=== PATIENT | female | born 1960 | race Caucasian/White ===

== ENCOUNTER 2016-09-30 07:48 | Inpatient (IN) | payer OTHER ==
[~2016-09-30] VITALS: Ht 167.6 cm; Wt 73.6 kg
[~2016-09-30 07:48] MED LIST: ASPI81TA21 PO; ATOR10TA PO; CHILCHW CHEW; CITA20 PO; CRAN500C2 PO; GLUCTAB PO; HYDR-3535 PO; HYDR25 PO; KETO2%T TOP; LEFL20TA7 PO; LOMO2.5T PO; NEOR100 PO; PRED5 PO; PREM1.25 PO; PRIN10TA PO; PROM25TA5 PO; PROP20TA24 PO; SPIR50TA PO; TAB-TAB PO; TRIA.1%T TOP; XANA0.5T PO
[2016-09-30 07:50] VITALS: BP 189/98; PULSE 136; RESP 20; TEMP 97.9; O2SAT 97
[2016-09-30] MEDS ORDERED: SODIUM CHLOR 0.9% 1000 ML INJ 1,000 ML IV SCH (08:11)
[2016-09-30] MEDS ORDERED: PANTOPRAZOLE SODIUM 40 MG VIAL IVP ONE (08:15)
[2016-09-30] MEDS ORDERED: SODIUM CHLORIDE 0.9% FLUSH 5 ML FLUSH IVF PRN ×2 (08:15→15:00)
[2016-09-30] MEDS ORDERED: MORPHINE SULFATE 4 MG/ML INJ IV PUSH ONE ×2 (08:15→12:30)
[2016-09-30] MEDS ORDERED: ASPI81CH37 PO (08:19)
[2016-09-30] MEDS ORDERED: PHEN-430 PO (08:19)
[2016-09-30] MEDS ORDERED: [UNRECOGNIZED DRUG - CODE] PO (08:19)
[2016-09-30] MEDS ORDERED: CYCL100C6 PO (08:19)
[2016-09-30] MEDS ORDERED: BUTA1CAP5 PO (08:19)
[2016-09-30] MEDS ORDERED: PRIL20CA9 PO (08:19)
[2016-09-30] MEDS ORDERED: LEFL1TAB3 PO (08:19)
[2016-09-30] MEDS ORDERED: ZOFR4TAB PO (08:19)
[2016-09-30] MEDS ORDERED: PROP20TA3 PO (08:19)
[2016-09-30] MEDS ORDERED: ROSU1TAB4 PO (08:19)
[2016-09-30] MEDS ORDERED: DIPH2.5T14 PO (08:19)
[2016-09-30] MEDS ORDERED: PRED5TAB PO (08:19)
[2016-09-30] MEDS ORDERED: LISI10TA3 PO (08:19)
[2016-09-30] MEDS ORDERED: SPIR50TA PO (08:19)
[2016-09-30] MEDS ORDERED: LOPE2CAP PO (08:19)
[2016-09-30] MEDS ORDERED: ESTR1.25 PO (08:19)
[2016-09-30] MEDS ORDERED: METF500T PO (08:19)
--- NOTE | 2016-09-30 08:19 | PD ---
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 Pt has been having NBNB vomiting and nonbloody diarrhea for 5-6 days. +Cough. +Chest pain with cough. Denies any fever, sob, urinary complaints, focal weakness or numbness. Pt took diphenoxylate/atropine for her diarrhea. Pt follows with oncologist Dr. Will. [facility] Past Medical History Arthritis: Yes (RHEUMATOID) Blood Disorders: No Anxiety: Yes Depression: Yes Heart Rhythm Problems: Yes Cancer: Yes (OVARIAN) Cardiovascular Problems: Yes Chemotherapy: Yes (leukemia) Diabetes: Yes Patient Takes Glucophage: Yes Diminished Hearing: No Endocrine: Yes Fibromyalgia: Yes Gastrointestinal Disorders: Yes GERD: Yes Glaucoma: No Genitourinary: Yes Headaches: Yes Hepatitis: No Hiatal Hernia: Yes Hypertension: Yes Immune Disorder: Yes Implanted Vascular Access Dvce: No Medical other: Yes (DDD, OSTEOARTHRITIS NECK, SPINAL CURVATURE) Musculoskeletal: Yes Neurologic: Yes Psychiatric: Yes Reproductive: No Respiratory: No Immunizations Current: No Migraines: Yes Thyroid Disease: No Tetanus Vaccination: > 5 Years Influenza Vaccination: No PNEUMOCCOCAL Vaccine (Year): 2 Menopausal: No : 1 Para: 1 Miscarriage: 0 : 0 Past Surgical History Abdominal Surgery: Yes (OMENTECTOMY STAGING BIOPSY AUG 21, 2010) AICD: No Arteriovenous Shunt: No Cardiac Surgery: No Section: Yes Ear Surgery: No Endocrine Surgery: No Eye Surgery: No Genitourinary Surgery: No Gynecologic Surgery: Yes (HYSTERECTOMY LEAH S&O PELVIC LYMPH NODE BIOPSY) Hysterectomy: Yes Insulin Pump: No Joint Replacement: No Neurologic Surgery: No Oral Surgery: Yes Pacemaker: No Thoracic Surgery: No Valve Replacement: Yes (PORT PLACED THEN REMOVED) Other Surgery: Yes Social History Alcohol Use: No Tobacco Use: No Substance Use: No Allergies-Medications (Allergen,Severity, Reaction): Coded Allergies: Ciprofloxacin (Verified Allergy, Severe, Swelling, 09/30/16) SWELLING AND AGGITATION Penicillin (Verified Allergy, Severe, RASH, 09/30/16) Cleocin (Verified Allergy, Intermediate, FLU SX, 09/30/16) Plaquenil (Verified Allergy, Intermediate, FLU SX, 09/30/16) Gabapentin (Verified Allergy, Mild, Rash, 09/30/16) Macrobid (Verified Adverse Reaction, Severe, N&V, 09/30/16) Reported Meds & Prescriptions Reported Meds & Active Scripts Active Reported Zofran (Ondansetron HCl) 4 Mg Tab 4 Mg PO Q8HR PRN Phenazopyridine (Phenazopyridine HCl) 200 Mg Tab 200 Mg PO Q8H PRN Rrpkpugthv-Urrnfojjgbtgb-Kxmixvno 50-300-40 Mg Cap 1 Cap PO TID PRN Do not exceed 6 capsules/day. Spironolactone 50 Mg Tab 50 Mg PO DAILY Propranolol (Propranolol HCl) 20 Mg Tab 20 Mg PO Q12HR Prednisone 5 Mg Tab 5 Mg PO DAILY Premarin (Estrogens Conjugated) 1.25 Mg Tab 1.25 Mg PO DAILY Escitalopram Liq (Escitalopram Oxalate) 5 Mg/5 Ml Soln 10 Mg PO DAILY Loperamide (Loperamide HCl) 2 Mg Cap 2 Mg PO DIRECTED PRN One capsule after each loose stool. Not to exceed 8 capsules per day. Rosuvastatin (Rosuvastatin Calcium) 5 Mg Tab 5 Mg PO DAILY Prilosec (Omeprazole) 20 Mg Cap 20 Mg PO DAILY Leflunomide 20 Mg Tab 20 Mg PO DAILY Aspirin Low Dose (Aspirin) 81 Mg Chew 81 Mg CHEW DAILY Diphenoxylate-Atropine 2.5-0.025 Mg Tab 2 Tab PO Q6H PRN Cyclosporine 100 Mg Cap 100 Mg PO BID Metformin (Metformin HCl) 500 Mg Tab 500 Mg PO BIDPC With meals Lisinopril 10 Mg Tab 10 Mg PO DAILY Review of Systems Except as stated in HPI: all other systems reviewed are Neg Physical Exam Narrative GENERAL: 55yo F in moderate distress. SKIN: Warm and dry. HEAD: Atraumatic. Normocephalic. CARDIOVASCULAR: Tachycardic. No murmur appreciated. RESPIRATORY: No accessory muscle use. Clear to auscultation. Breath sounds equal bilaterally. GASTROINTESTINAL: Abdomen soft, +TTP RUQ and RLQ. No rebound tenderness or guarding. MUSCULOSKELETAL: No obvious deformities. No clubbing. No cyanosis. No edema. NEUROLOGICAL: Awake and alert. No obvious cranial nerve deficits. Motor grossly within normal limits. Normal speech. PSYCHIATRIC: Appropriate mood and affect; insight and judgment normal. Data Data Last Documented VS Vital Signs Date Time Temp Pulse Resp B/P Pulse Ox O2 Delivery O2 Flow Rate FiO2 09/30/16 12:30 91 16 174/79 97 Room Air 09/30/16 07:50 97.9 Orders Electrocardiogram (09/30/16 ) Complete Blood Count With Diff (09/30/16 08:11) Comprehensive Metabolic Panel (09/30/16 08:11) Lipase (09/30/16 08:11) Lactic Acid (09/30/16 08:11) Prothrombin Time / Inr (Pt) (09/30/16 08:11) Act Partial Throm Time (Ptt) (09/30/16 08:11) Ct Abd/Pel W Iv Contrast(Rout) (09/30/16 08:11) Iv Access Insert/Monitor (09/30/16 08:11) Ecg Monitoring (09/30/16 08:11) Oximetry (09/30/16 08:11) Morphine Inj (Morphine Inj) (09/30/16 08:15) Pantoprazole Inj (Protonix Inj) (09/30/16 08:15) Sodium Chlor 0.9% 1000 Ml Inj (Ns 1000 M (09/30/16 08:11) Sodium Chloride 0.9% Flush (Ns Flush) (09/30/16 08:15) Chest, Single Ap (09/30/16 08:11) Troponin I (09/30/16 08:11) Blood Culture (09/30/16 08:11) Ondansetron Inj (Zofran Inj) (09/30/16 08:30) Urinalysis - C+S If Indicated (09/30/16 08:58) Iohexol 350 Inj (Omnipaque 350 Inj) (09/30/16 09:50) Sodium Chlor 0.9% 1000 Ml Inj (Ns 1000 M (09/30/16 10:45) NPO (09/30/16 10:45) [facility] Information ([facility] (09/30/16 11:15) Ertapenem Inj (Invanz Inj) (09/30/16 11:14) Enalaprilat Inj (Vasotec Inj) (09/30/16 12:17) Enalaprilat Inj (Vasotec Inj) (09/30/16 12:30) Morphine Inj (Morphine Inj) (09/30/16 12:30) Electrocardiogram (09/30/16 ) Admit To Inpatient (09/30/16 ) Code Status (09/30/16 12:37) Vital Signs (Adult) Q4H (09/30/16 12:37) Activity Oob With Assistance (09/30/16 12:37) Diet Npo (09/30/16 Lunch) Sodium Chloride 0.9% Flush (Ns Flush) (09/30/16 12:45) Sodium Chloride 0.9% Flush (Ns Flush) (09/30/16 21:00) Acetaminophen (Tylenol) (09/30/16 12:45) Ondansetron Inj (Zofran Inj) (09/30/16 12:45) Bisacodyl Supp (Dulcolax Supp) (09/30/16 12:45) Magnesium Hydroxide Liq (Milk Of Magnesi (09/30/16 12:45) Pt Request For Service (09/30/16 12:37) Scd Bilateral/Knee High RAYA.BID (09/30/16 12:37) Naloxone Inj (Narcan Inj) (09/30/16 12:45) Inpatient Certification (09/30/16 ) Clonidine (Catapres) (09/30/16 12:45) Enalaprilat Inj (Vasotec Inj) (09/30/16 12:45) Acetamin-Hydrocod 325-5 Mg ([place] 5-325 (09/30/16 12:45) Hydromorphone Pf Inj (Dilaudid Pf Inj) (09/30/16 12:45) Admit Order (Ed Use Only) (09/30/16 12:43) Labs Laboratory Tests Test 09/30/16 09/30/16 08:30 09:00 White Blood Count 2.3 TH/MM3 Red Blood Count 4.51 MIL/MM3 Hemoglobin 12.4 GM/DL Hematocrit 38.7 % Mean Corpuscular Volume 85.7 FL Mean Corpuscular Hemoglobin 27.5 PG Mean Corpuscular Hemoglobin 32.1 % Concent Red Cell Distribution Width 17.2 % Platelet Count 221 TH/MM3 Mean Platelet Volume 8.0 FL Neutrophils (%) (Auto) 24.2 % Lymphocytes (%) (Auto) 55.0 % Monocytes (%) (Auto) 15.8 % Eosinophils (%) (Auto) 4.4 % Basophils (%) (Auto) 0.6 % Neutrophils # (Auto) 0.6 TH/MM3 Lymphocytes # (Auto) 1.3 TH/MM3 Monocytes # (Auto) 0.4 TH/MM3 Eosinophils # (Auto) 0.1 TH/MM3 Basophils # (Auto) 0.0 TH/MM3 CBC Comment AUTO DIFF Differential Total Cells 100 Counted Neutrophils % (Manual) 28 % Band Neutrophils % 3 % Lymphocytes % 54 % Monocytes % 11 % Eosinophils % 4 % Neutrophils # (Manual) 0.7 TH/MM3 Differential Comment FINAL DIFF MANUAL Platelet Estimate NORMAL Platelet Morphology Comment NORMAL Ovalocytes 1+ Keratocytes OCC Prothrombin Time 10.5 SEC Prothromb Time International 1.0 RATIO Ratio Activated Partial 24.8 SEC Thromboplast Time Sodium Level 137 MEQ/L Potassium Level 4.5 MEQ/L Chloride Level 101 MEQ/L Carbon Dioxide Level 26.4 MEQ/L Anion Gap 10 MEQ/L Blood Urea Nitrogen 14 MG/DL Creatinine 1.37 MG/DL Estimat Glomerular Filtration 40 ML/MIN Rate Random Glucose 142 MG/DL Lactic Acid Level 1.5 mmol/L Calcium Level 8.7 MG/DL Total Bilirubin 0.5 MG/DL Aspartate Amino Transf 16 U/L (AST/SGOT) Alanine Aminotransferase 14 U/L (ALT/SGPT) Alkaline Phosphatase 59 U/L Troponin I LESS THAN 0.02 NG/ML Total Protein 7.4 GM/DL Albumin 3.2 GM/DL Lipase 82 U/L Urine Color YELLOW Urine Turbidity HAZY Urine pH 5.5 Urine Specific [place] 1.020 Urine Protein TRACE mg/dL Urine Glucose (UA) NEG mg/dL Urine Ketones NEG mg/dL Urine Occult Blood NEG Urine Nitrite NEG Urine Bilirubin NEG Urine Urobilinogen LESS THAN 2.0 MG/DL Urine Leukocyte Esterase NEG Urine RBC 1 /hpf Urine WBC 3 /hpf Urine Squamous Epithelial 14 /hpf Cells Urine Bacteria FEW /hpf Urine Hyaline Casts 3 /lpf Urine Mucus FEW /lpf Microscopic Urinalysis Comment CULT NOT INDICATED MDM Medical Decision Making Medical Screen Exam Complete: Yes Emergency Medical Condition: Yes Interpretation(s) EKG: Sinus tachycardia at 119bpm. Normal axis. No ST segment elevation or depression. Differential Diagnosis Sepsis vs. appendicitis vs. colitis vs. gastroenteritis vs. dehydration Narrative Course 55yo F with right sided abdominal pain. Pt's initially heart rate when I evaluated her was about 120bpm and improved to 80s after NS IVF. Discussed with Dr. Will initially who has not yet seen the patient since pt's oncologist Dr. Felder recently retired. Labs reviewed, WBC 2.3. Lactic acid normal. UA negative. CXR negative. CTa/p showed acute appendicitis. Initially spoke with surgeon Dr. Burrell who recommended ertapenem and medicine admission. Discussed with Dr. Richardson and also Dr. Patterson since pt is [facility] pt. Pt accepted to Dr. Richardson and consulted by Dr. Walters. Pt given morphine 4mg IV with improved of pain. Diagnosis Primary Impression: Appendicitis Qualified Code: K35.80 - Acute appendicitis, unspecified acute appendicitis type Admitting Information Admitting Physician Requests: Admit Yoly Manrique DO Sep 30, 2016 08:19
[2016-09-30] MEDS ORDERED: ONDANSETRON HCL 4 MG/2 ML VIAL IV PUSH ONE ×2 (08:30→12:00)
--- NOTE | 2016-09-30 08:35 | RADRPT ---
EXAM DATE/TIME: 09/30/2016 08:13 [facility] COMPARISON: CHEST SINGLE AP, May 04, 2016, 12:36. INDICATIONS : Short of breath. MEDICAL HISTORY : None. SURGICAL HISTORY : None. ENCOUNTER: Initial ACUITY: 3 days PAIN SCORE: 10/10 LOCATION: lower quadrant of abdomen. FINDINGS: A single view of the chest demonstrates the lungs to be symmetrically aerated without evidence of mas s, infiltrate or effusion. The cardiomediastinal contours are unremarkable. Osseous structures are intact. CONCLUSION: No acute disease. No significant change has occurred. Kyle Roy MD on September 30, 2016 at 8:33 Board Certified Radiologist. This report was verified electronically.
[2016-09-30 08:47] LABS: AUTOMATED NEUTROPHIL # 0.6 TH/MM3 (1.8-7.7); BASOPHIL % 0.6 % (0.0-2.0); EOSINOPHIL # 0.1 TH/MM3 (0-0.4); EOSINOPHIL % 4.4 % (0.0-4.0); HEMATOCRIT 38.7 % (35.0-46.0); LYMPHOCYTE # 1.3 TH/MM3 (1.0-4.8); MEAN CELL VOLUME 85.7 FL (80.0-100.0); MEAN CORPUSCULAR HEMOGLOBIN 27.5 PG (27.0-34.0); MEAN CORPUSCULAR HGB CONC 32.1 % (32.0-36.0); MONO % 15.8 % (0.0-8.0); NEUT % 24.2 % (16.0-70.0); PLATELET COUNT 221 TH/MM3 (150-450); RED BLOOD COUNT 4.51 MIL/MM3 (4.00-5.30); RED CELL DISTRIBUTION WIDTH 17.2 % (11.6-17.2); WHITE BLOOD COUNT 2.3 TH/MM3 (4.0-11.0)
[2016-09-30 08:54] LABS: HEMO FLAGS AUTO DIFF
[2016-09-30 08:57] LABS: APTT (PATIENT) 24.8 SEC (24.3-30.1); PROTHROMBIN TIME - PATIENT 10.5 SEC (9.8-11.6)
[2016-09-30 09:01] VITALS: BP 143/75; PULSE 80; RESP 16; O2SAT 97
[2016-09-30 09:02] LABS: ANION GAP 10 MEQ/L (5-15); AST (GOT) 16 U/L (15-37); BICARBONATE 26.4 MEQ/L (21.0-32.0); BLOOD UREA NITROGEN 14 MG/DL (7-18); CHLORIDE 101 MEQ/L (98-107); GLOMERULAR FILTRATION RATE 40 ML/MIN (>89); POTASSIUM 4.5 MEQ/L (3.5-5.1); SODIUM (NA) 137 MEQ/L (136-145)
[2016-09-30 09:07] LABS: ALKALINE PHOSPHATASE 59 U/L (45-117); ALT (GPT) 14 U/L (10-53); TOTAL BILIRUBIN ADULT 0.5 MG/DL (0.2-1.0)
[2016-09-30 09:16] LABS: BACTERIA, URINE FEW /hpf; BLOOD, URINE NEG (NEG); GLUCOSE,URINE NEG (NEG); HYALINE CAST, URINE 3 /lpf (RARE); KETONE, URINE NEG (NEG); MUCUS URINE FEW /lpf (OCC); NITRITE,URINE NEG (NEG); PH, URINE 5.5 (5.0-8.5); SQUAMOUS EPITHELIAL CELL URINE 14 /hpf (0-5); URINE COLOR YELLOW (YELLW/STRAW)
[2016-09-30 09:18] LABS: COMMENT (UR) CULT NOT INDICATED; CULTURE IF INDICATED CULT NOT INDICATED
[2016-09-30] MEDS: METFORMIN HOLD POST IV CONTRAST XX SCH (09:37)
[2016-09-30 09:45] LABS: BANDS 3 % (0-6); EOSINOPHILS 4 % (0-4); NEUTROPHIL # MANUAL DIFF 0.7 TH/MM3 (1.8-7.7); POLYS (SEG NEUTROPHILS) 28 % (16-70); WBC DIFF SAMPLE 100
[2016-09-30 09:46] LABS: PLATELET ESTIMATE SMEAR NORMAL (NORMAL); PLATELET MORPHOLOGY NORMAL (NORMAL); SCAN/DIFF FINAL DIFF MANUAL
[2016-09-30 09:47] LABS: KERATOCYTES OCC (NORMAL); OVALOCYTES 1+ (NORMAL)
[2016-09-30] MEDS ORDERED: IOHEXOL 350 MG/ML 10 ML VIAL (for RAD DIAG) IV ONE (09:50)
--- NOTE | 2016-09-30 10:16 | RADRPT ---
EXAM DATE/TIME: 09/30/2016 09:33 [facility] COMPARISON: CT ABDOMEN & PELVIS W CONTRAST, May 13, 2016, 15:08. INDICATIONS: Right sided abdominal pain for three days. IV CONTRAST: 90 cc Omnipaque 350 (iohexol) IV ORAL CONTRAST: No oral contrast ingested. RADIATION DOSE: 9.96 CTDIvol (mGy) MEDICAL HISTORY: Carcinoma, ovarian. Hypertension. Diabetes mellitus type 2. SURGICAL HISTORY: Hysterectomy. ENCOUNTER: Initial ACUITY: 3 days PAIN SCALE: 5/10 LOCATION: Right lower quadrant TECHNIQUE: Volumetric scanning of the abdomen and pelvis was performed. Using automated exposure control and adjustment of the mA and/or kV according to patient size, radiation dose was kept as low as reasonably achievable to obtain optimal diagnostic quality images. FINDINGS: The lung bases are clear. The liver is free of focal defects. The gallbladder is unremarkable. The pancreas and spleen appear normal. Right and left adrenals are unremarkable. There is symmetrical renal function. There is a prominent appendix measuring 10 cm with very minimal periappendiceal stranding, all consis tent with an acute appendicitis radiographically. There is no abscess. There is no perforation. Pelvic contents was unremarkable. CONCLUSION: CT findings consistent with acute appendicitis. Milton Coleman MD FACR on September 30, 2016 at 9:49 Board Certified Radiologist. This report was verified electronically.
[2016-09-30] MEDS ORDERED: SODIUM CHLOR 0.9% 1000 ML INJ 1,000 ML IV ONE (10:45)
[2016-09-30] MEDS ORDERED: ERTAPENEM INJ 1,000 MG in SODIUM CHLORIDE 0.9% INJ 100 ML IV STA (11:14)
[2016-09-30] MEDS ORDERED: MISCELLANEOUS PHARMACY INFORMATION XX PRN (11:15)
[2016-09-30] MEDS ORDERED: NEOSTIGMINE 3 MG/3 ML SYR IV ONE (12:00)
[2016-09-30] MEDS ORDERED: LACTATED RINGER'S 1000 ML INJ 1,000 ML IV ONE (12:00)
[2016-09-30] MEDS ORDERED: ePHEDrine/NS 50 MG/5 ML SYR IV ONE (12:00)
[2016-09-30] MEDS ORDERED: PHENYLEPH/NS 1000 MCG/10 ML SYR IV ONE (12:00)
[2016-09-30] MEDS ORDERED: PROPOFOL 200 MG/20 ML AMP IV ONE (12:00)
[2016-09-30 12:14] VITALS: BP 212/95; PULSE 83; RESP 16; O2SAT 97
[2016-09-30] MEDS ORDERED: ENALAPRILAT 2.5 MG/2 ML VIAL ONE (12:17)
[2016-09-30 12:30] VITALS: BP 174/79; PULSE 91; RESP 16; O2SAT 97
[2016-09-30] MEDS ORDERED: ENALAPRILAT 2.5 MG/2 ML VIAL IV PUSH ONE (12:30)
[2016-09-30] MEDS ORDERED: ACETAMINOPHEN/HYDROcodone 325 MG/5 MG TAB PO PRN ×2 (12:45→15:00)
[2016-09-30] MEDS ORDERED: SODIUM CHLORIDE 0.9% FLUSH 5 ML FLUSH FLUSH PRN (12:45)
[2016-09-30] MEDS ORDERED: cloNIDine HCL 0.2 MG TAB PO PRN (12:45)
[2016-09-30] MEDS ORDERED: NALOXONE HCL 0.4 MG/ML AMP IV PRN (12:45)
[2016-09-30] MEDS ORDERED: LOPERAMIDE HCL 2 MG CAP PO PRN (12:45)
[2016-09-30] MEDS ORDERED: ACETAMIN 325 MG/BUTALBITAL 50 MG/CAFFEINE 40 MG TAB PO PRN (12:45)
[2016-09-30] MEDS ORDERED: MAGNESIUM HYDROXIDE SUSP 30 ML CUP PO PRN (12:45)
[2016-09-30] MEDS ORDERED: HYDROmorphone HCL PF 1 MG/ML VIAL IV PUSH PRN (12:45)
[2016-09-30] MEDS ORDERED: ONDANSETRON HCL 4 MG/2 ML VIAL IVP PRN (12:45)
[2016-09-30] MEDS ORDERED: ENALAPRILAT 1.25 MG/ML VIAL IV PUSH PRN (12:45)
[2016-09-30] MEDS ORDERED: ACETAMINOPHEN 325 MG TAB PO PRN (12:45)
[2016-09-30] MEDS ORDERED: BISACODYL 10 MG SUPP PR PRN (12:45)
[2016-09-30] MEDS ORDERED: BUPIVACAINE/EPINEPHRINE 0.25% PF 30 ML VIAL ONE (13:00)
[2016-09-30] MEDS: LISINOPRIL 10 MG TAB PO SCH (13:00)
[2016-09-30] MEDS ORDERED: MIDAZOLAM HCL 2 MG/2 ML VIAL ONE (13:19)
[2016-09-30] MEDS ORDERED: FAMOTIDINE 20 MG/2 ML VIAL ONE (13:19)
[2016-09-30] MEDS ORDERED: Post-op Orders (for Pharmacy) MISC XX ONE (15:00)
[2016-09-30] MEDS ORDERED: ONDANSETRON HCL 4 MG/2 ML VIAL IV PRN (15:00)
[2016-09-30] MEDS ORDERED: MORPHINE SULFATE 4 MG/ML INJ IV PRN (15:00)
[2016-09-30] MEDS ORDERED: DO NOT ADM ANY ANTICOAGULANT DRUGS XX PRN (15:05)
[2016-09-30] MEDS: SODIUM CHLOR 0.9% 1000 ML INJ 1,000 ML IV SCH (15:32)
[2016-09-30] MEDS: INSULIN ASPART SUPPLEMENTAL SCALE SQ SCH ×2 (15:39→21:00)
[2016-09-30] MEDS ORDERED: *morphine SULFATE 8 MG/ML PERIprocedure ONLY ONE (15:42)
[2016-09-30] MEDS ORDERED: *ONDANSETRON 4 MG VIAL PERIprocedural Use ONLY ONE (15:43)
[2016-09-30 16:00] VITALS: BP 130/67; PULSE 98; RESP 18; TEMP 97.6; O2SAT 97
[2016-09-30] MEDS ORDERED: ALPRAZolam 1 MG TAB PO PRN (18:00)
--- NOTE | 2016-09-30 18:02 | HHI.HP ---
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 Patient s/p surgery and is doing well , admitted to medicine for further care. Review of Systems Gastrointestinal: COMPLAINS OF: Abdominal pain, Diarrhea, Nausea, Vomiting Past Family Social History Past Medical History DM,DJD,anxiety depression,Tcell lymphoma,RA,hypertension Past Surgical History omentectomy,hysterectomy,port placement and removal Reported Medications zofran,propanolol 20 bid,premarin 1.25 escitalopram 10,cholesterol med,asa, lefluomide 20,cyclosporin 100 bid metformin 500 bid lisinopril 10 Allergies: Coded Allergies: Ciprofloxacin (Verified Allergy, Severe, Swelling, 09/30/16) SWELLING AND AGGITATION Penicillin (Verified Allergy, Severe, RASH, 09/30/16) Cleocin (Verified Allergy, Intermediate, FLU SX, 09/30/16) Plaquenil (Verified Allergy, Intermediate, FLU SX, 09/30/16) Gabapentin (Verified Allergy, Mild, Rash, 09/30/16) Macrobid (Verified Adverse Reaction, Severe, N&V, 09/30/16) Social History NS,ND Physical Exam Vital Signs Vital Signs Date Time Temp Pulse Resp B/P Pulse Ox O2 Delivery O2 Flow Rate FiO2 09/30/16 16:11 83 14 135/67 99 Nasal Cannula 2 09/30/16 16:00 97.6 98 18 130/67 97 09/30/16 16:00 98.9 83 15 129/69 99 Nasal Cannula 2 09/30/16 15:45 80 14 143/60 99 Nasal Cannula 2 09/30/16 15:30 83 17 146/70 99 Nasal Cannula 2 09/30/16 15:15 90 14 157/84 99 Nasal Cannula 2 09/30/16 15:03 98.7 109 15 160/79 99 Nasal Cannula 2 09/30/16 12:30 91 16 174/79 97 Room Air 09/30/16 12:14 83 16 212/95 97 Room Air 09/30/16 09:01 80 16 143/75 97 Room Air 09/30/16 08:35 20 09/30/16 07:50 97.9 136 20 189/98 97 Room Air Physical Exam GENERAL: This is a well-nourished, well-developed patient, in no apparent distress. SKIN: No rashes, ecchymoses or lesions. Cool and dry. HEAD: Atraumatic. Normocephalic. No temporal or scalp tenderness. EYES: Pupils equal round and reactive. Extraocular motions intact. No scleral icterus. No injection or drainage. ENT: Nose without bleeding, purulent drainage or septal hematoma. Throat without erythema, tonsillar hypertrophy or exudate. Uvula midline. Airway patent. NECK: Trachea midline. No JVD or lymphadenopathy. Supple, nontender, no meningeal signs. CARDIOVASCULAR: Regular rate and rhythm without murmurs, gallops, or rubs. RESPIRATORY: Clear to auscultation. Breath sounds equal bilaterally. No wheezes , rales, or rhonchi. GASTROINTESTINAL: Abdomen soft, -tender,no rebound nondistended. No hepato- splenomegaly, or palpable masses. No guarding. MUSCULOSKELETAL: Extremities without clubbing, cyanosis, or edema. No joint tenderness, effusion, or edema noted. No calf tenderness. Negative Homans sign bilaterally. NEUROLOGICAL: Awake and alert. Cranial nerves II through XII intact. Motor and sensory grossly within normal limits. Five out of 5 muscle strength in all muscle groups. Normal speech. Laboratory Laboratory Tests Test 09/30/16 09/30/16 08:30 09:00 White Blood Count 2.3 Red Blood Count 4.51 Hemoglobin 12.4 Hematocrit 38.7 Mean Corpuscular Volume 85.7 Mean Corpuscular Hemoglobin 27.5 Mean Corpuscular Hemoglobin 32.1 Concent Red Cell Distribution Width 17.2 Platelet Count 221 Mean Platelet Volume 8.0 Neutrophils (%) (Auto) 24.2 Lymphocytes (%) (Auto) 55.0 Monocytes (%) (Auto) 15.8 Eosinophils (%) (Auto) 4.4 Basophils (%) (Auto) 0.6 Neutrophils # (Auto) 0.6 Lymphocytes # (Auto) 1.3 Monocytes # (Auto) 0.4 Eosinophils # (Auto) 0.1 Basophils # (Auto) 0.0 CBC Comment AUTO DIFF Differential Total Cells 100 Counted Neutrophils % (Manual) 28 Band Neutrophils % 3 Lymphocytes % 54 Monocytes % 11 Eosinophils % 4 Neutrophils # (Manual) 0.7 Differential Comment FINAL DIFF MANUAL Platelet Estimate NORMAL Platelet Morphology Comment NORMAL Ovalocytes 1+ Keratocytes OCC Prothrombin Time 10.5 Prothromb Time International 1.0 Ratio Activated Partial 24.8 Thromboplast Time Sodium Level 137 Potassium Level 4.5 Chloride Level 101 Carbon Dioxide Level 26.4 Anion Gap 10 Blood Urea Nitrogen 14 Creatinine 1.37 Estimat Glomerular Filtration 40 Rate Random Glucose 142 Lactic Acid Level 1.5 Calcium Level 8.7 Total Bilirubin 0.5 Aspartate Amino Transf 16 (AST/SGOT) Alanine Aminotransferase 14 (ALT/SGPT) Alkaline Phosphatase 59 Troponin I LESS THAN 0.02 Total Protein 7.4 Albumin 3.2 Lipase 82 Urine Color YELLOW Urine Turbidity HAZY Urine pH 5.5 Urine Specific [place] 1.020 Urine Protein TRACE Urine Glucose (UA) NEG Urine Ketones NEG Urine Occult Blood NEG Urine Nitrite NEG Urine Bilirubin NEG Urine Urobilinogen LESS THAN 2.0 Urine Leukocyte Esterase NEG Urine RBC 1 Urine WBC 3 Urine Squamous Epithelial 14 Cells Urine Bacteria FEW Urine Hyaline Casts 3 Urine Mucus FEW Microscopic Urinalysis Comment CULT NOT INDICATED Date/Time Procedure Status Source Growth 09/30/16 08:30 Aerobic Blood Culture Received Blood Peripheral Pending 09/30/16 08:30 Anaerobic Blood Culture Received Blood Peripheral Pending Result Diagram: 09/30/16 0830 09/30/16 0830 Imaging Last 24 hours Impressions Chest X-Ray 09/30/16 0811 Signed Impressions: Service Date/Time: Friday, September 30, 2016 08:13 - CONCLUSION: No acute disease. No significant change has occurred. Kyle Roy MD Abdomen/Pelvis CT 09/30/16810 Signed Impressions: Service Date/Time: Friday, September 30, 2016 09:33 - CONCLUSION: CT findings consistent with acute appendicitis. Milton Coleman MD FACR Course patient s/p surgery and is in room doing well with some anxiety Assessment and Plan Problem List: (1) Appendicitis Status: Acute Plan: doing well post surgery plan as per general surgery (2) T-cell lymphoma Status: Chronic Plan: is on cyclosporin will consult Dr. Will (3) Diabetes mellitus Status: Chronic Plan: will use sliding scale hold po med for now Assessment and Plan further plan as case develops add xanax for anxiety Code Status full Discussed Condition With patient Physician Certification 2 Midnight Certification Type: Admission for Inpatient Services Order for Inpatient Services The services are ordered in accordance with Medicare regulations or non- Medicare payer requirements, as applicable. In the case of services not specified as inpatient-only, they are appropriately provided as inpatient services in accordance with the 2-midnight benchmark. Estimated LOS (days): 2 2 days is the estimated time the patient will need to remain in the hospital, assuming treatment plan goals are met and no additional complications. Post-Hospital Plan: Not yet determined Clovis Du MD Sep 30, 2016 18:02
[2016-09-30] MEDS: ALPRAZolam 0.5 MG TAB PO PRN (18:11)
--- NOTE | 2016-09-30 19:41 | EKG ---
Date Performed: 09/30/2016 Time Performed: 08:01:08 PTAGE: 55 years EKG: SINUS TACHYCARDIA ABNORMAL RHYTHM ECG PREVIOUS TRACING : 05/13/2016 14.52 Compared to the previous tracing, rate faster DOCTOR: Gayla Ramachandran Interpretating Date/Time 09/30/2016 19:39:28
[2016-09-30 20:00] VITALS: BP 125/58; PULSE 78; RESP 18; TEMP 97.6; O2SAT 97
[2016-09-30] MEDS: PROPRANOLOL HCL 20 MG TAB PO SCH (21:00)
[2016-09-30] MEDS: SODIUM CHLORIDE 0.9% FLUSH 5 ML FLUSH IVF SCH (21:00)
[2016-09-30] MEDS: cycloSPORINE 100 MG CAP PO SCH (21:00)
[2016-09-30] MEDS ORDERED: SODIUM CHLORIDE 0.9% FLUSH 5 ML FLUSH FLUSH SCH (21:00)
[2016-09-30] MEDS: ACETAMINOPHEN/HYDROcodone 325 MG/5 MG TAB PO PRN (23:03)
--- NOTE | 2016-09-30 23:05 | MB ---
cc: GEE FRANKLIN M.D. DATE OF CONSULTATION: 09/30/2016 DATE OF : 1960. REASON FOR CONSULTATION Appendicitis HISTORY This is a patient with a history of ovarian cancer as well as leukemia who presented to the emergency room with complaint of abdominal pain. The patient states the pain was located in the lower abdomen started approximately okr-dyh-b-half days ago. It was associated with nausea, vomiting as well as diarrhea. She presented to the emergency room and a CT scan was performed which revealed findings concerning for appendicitis. Surgical evaluation requested. The patient denied fever or chills. PAST MEDICAL HISTORY: Significant for above. Depression. Type 2 diabetes. Anxiety. PAST SURGICAL HISTORY Significant for total abdominal hysterectomy, Bnpjoh-W-Rjod placement. MEDICATIONS Medication at home includes: 1. Leflunomide. 2. Cyclosporin. 3. Metformin. 4. Escitalopram. 5. Propranolol 6. Zofran. ALLERGIES: CIPROFLOXACIN CLEOCIN GABAPENTIN MACROBID PENICILLIN PLAQUENIL SOCIAL HISTORY: She does not smoke, does not drink alcohol. FAMILY HISTORY: Noncontributory. REVIEW OF SYSTEMS: Review of systems is significant for above. All other 10-point review negative. PHYSICAL EXAMINATION: On exam the patient is laying on a stretcher in no acute distress. HEENT: The pupils are equal and reactive. Mucous membranes are moist. Neck: Trachea is midline. No JVD in her neck. Respirations: Clear. Cardiovascular: Regular. Gastrointestinal: Soft, well healed infraumbilical midline scar. Positive tenderness in the right lower quadrant. Musculoskeletal: No deformities. Neurological: Nonfocal. LABORATORY DATA The patient's white count is 2.3, neutrophils of 24, lymphocytes of 55, creatinine is 1.7. X-RAYS: CT scan reviewed revealed dilated appendix. ASSESSMENT This is a patient with appendicitis, multiple medical problems. PLAN: The patient will be taken to the operating room for laparoscopic appendectomy. The risks and benefits explained to include but not be exclusive to infection, bleeding, bowel injury, bladder injury, urinary injury. Technical aspects explained as well as nevin and postoperative course. The patient verbalized understanding. Consent was obtained. Will proceed to the operating room. MD LISETTE Diego/JE /10:19 PM /10:54 PM
[2016-10-01] VITALS: BP 139/70; PULSE 76; RESP 18; TEMP 98.6; O2SAT 96
[2016-10-01] MEDS: ALPRAZolam 0.5 MG TAB PO PRN ×2 (02:00→22:16)
[2016-10-01] MEDS: SODIUM CHLOR 0.9% 1000 ML INJ 1,000 ML IV SCH ×3 (02:01→22:20)
[2016-10-01 04:55] LABS: HEMATOCRIT 31.7 % (35.0-46.0); MEAN CELL VOLUME 85.6 FL (80.0-100.0); MEAN CORPUSCULAR HGB CONC 32.7 % (32.0-36.0); PLATELET COUNT 151 TH/MM3 (150-450); RED CELL DISTRIBUTION WIDTH 17.2 % (11.6-17.2); WHITE BLOOD COUNT 2.9 TH/MM3 (4.0-11.0)
[2016-10-01 04:58] LABS: HEMO FLAGS AUTO DIFF
[2016-10-01 05:13] LABS: BICARBONATE 23.8 MEQ/L (21.0-32.0); MAGNESIUM 1.2 MG/DL (1.5-2.5); POTASSIUM 3.9 MEQ/L (3.5-5.1)
[2016-10-01] MEDS: INSULIN ASPART SUPPLEMENTAL SCALE SQ SCH ×4 (05:30→21:00)
[2016-10-01] MEDS: ACETAMINOPHEN/HYDROcodone 325 MG/5 MG TAB PO PRN ×4 (06:28→22:19)
[2016-10-01 07:39] LABS: EOSINOPHILS 7 % (0-4); POLYS (SEG NEUTROPHILS) 10 % (16-70); WBC DIFF SAMPLE 100
[2016-10-01 07:42] LABS: NEUTROPHIL # MANUAL DIFF 0.3 TH/MM3 (1.8-7.7); PLATELET ESTIMATE SMEAR NORMAL (NORMAL); PLATELET MORPHOLOGY NORMAL (NORMAL); SCAN/DIFF FINAL DIFF MANUAL
[2016-10-01] MEDS: predniSONE 5 MG TAB PO SCH (08:13)
[2016-10-01] MEDS: LEFLUNOMIDE 20 MG TAB PO SCH (08:13)
[2016-10-01] MEDS: cycloSPORINE 100 MG CAP PO SCH (08:13)
[2016-10-01] MEDS: PANTOPRAZOLE SOD 20 MG DELAYED RELEASE TAB PO SCH (08:13)
[2016-10-01] MEDS: ASPIRIN 81 MG CHEW TAB CHEW SCH (08:13)
[2016-10-01] MEDS: LISINOPRIL 10 MG TAB PO SCH (08:14)
[2016-10-01] MEDS: SPIRONOLACTONE 50 MG TAB PO SCH (08:14)
[2016-10-01] MEDS: ATORVASTATIN 10 MG TAB PO SCH (08:14)
[2016-10-01] MEDS: ESCITALOPRAM OXALATE 10 MG TAB PO SCH (08:14)
[2016-10-01] MEDS: PROPRANOLOL HCL 20 MG TAB PO SCH ×2 (08:15→22:16)
[2016-10-01] MEDS: SODIUM CHLORIDE 0.9% FLUSH 5 ML FLUSH IVF SCH ×2 (08:16→21:00)
[2016-10-01 08:30] VITALS: O2SAT 98
[2016-10-01 09:08] VITALS: BP 121/58; PULSE 77; RESP 15; TEMP 96.6; O2SAT 97
[2016-10-01] MEDS: METFORMIN HOLD POST IV CONTRAST XX SCH (09:37)
[2016-10-01 14:00] VITALS: BP 132/61; PULSE 67; RESP 18; TEMP 97; O2SAT 97
[2016-10-01] MEDS ORDERED: FILGRASTIM INJ 300 MCG in DEXTROSE 5% IN WATER INJ 24 ML IV SCH ×2 (14:00)
[2016-10-01] MEDS: LEVOFLOXACIN 500 MG PREMIX INJ 100 ML IV SCH (14:05)
[2016-10-01] MEDS ORDERED: FILGRASTIM IV SCH ×2 (15:00)
[2016-10-01] MEDS ORDERED: WATER IV SCH ×2 (15:00)
[2016-10-01] MEDS ORDERED: DEXTROSE 5% IV SCH ×2 (15:00)
--- NOTE | 2016-10-01 16:13 | PD.ONC.PN ---
Subjective Subjective Remarks Afebrile overnight. Patient having some soreness in abdomen from surgery, but otherwise comfortable. Objective Data Date Time Temp Pulse Resp B/P Pulse Ox O2 Delivery O2 Flow Rate FiO2 10/01/16 14:00 97.0 67 18 132/61 97 10/01/16 09:08 96.6 77 15 121/58 97 10/01/16 08:30 98 21 10/01/16 00:00 98.6 76 18 139/70 96 09/30/16 20:00 97.6 78 18 125/58 97 09/30/16 16:11 83 14 135/67 99 Nasal Cannula 2 Result Diagram: 10/01/1631610/01/16316 Laboratory Results Laboratory Tests Test 10/01/16 03:17 White Blood Count 2.9 TH/MM3 Red Blood Count 3.70 MIL/MM3 Hemoglobin 10.4 GM/DL Hematocrit 31.7 % Mean Corpuscular Volume 85.6 FL Mean Corpuscular Hemoglobin 28.0 PG Mean Corpuscular Hemoglobin 32.7 % Concent Red Cell Distribution Width 17.2 % Platelet Count 151 TH/MM3 Mean Platelet Volume 8.1 FL Neutrophils (%) (Auto) % Lymphocytes (%) (Auto) % Monocytes (%) (Auto) % Eosinophils (%) (Auto) % Basophils (%) (Auto) % Neutrophils # (Auto) TH/MM3 Lymphocytes # (Auto) TH/MM3 Monocytes # (Auto) TH/MM3 Eosinophils # (Auto) TH/MM3 Basophils # (Auto) TH/MM3 CBC Comment AUTO DIFF Differential Total Cells 100 Counted Neutrophils % (Manual) 10 % Lymphocytes % 72 % Monocytes % 11 % Eosinophils % 7 % Neutrophils # (Manual) 0.3 TH/MM3 Differential Comment FINAL DIFF MANUAL Platelet Estimate NORMAL Platelet Morphology Comment NORMAL Sodium Level 140 MEQ/L Potassium Level 3.9 MEQ/L Chloride Level 108 MEQ/L Carbon Dioxide Level 23.8 MEQ/L Anion Gap 8 MEQ/L Blood Urea Nitrogen 10 MG/DL Creatinine 1.06 MG/DL Estimat Glomerular Filtration 54 ML/MIN Rate Random Glucose 82 MG/DL Calcium Level 7.7 MG/DL Magnesium Level 1.2 MG/DL Culture Results Microbiology Date/Time Procedure Status Source Growth 09/30/16 08:30 Aerobic Blood Culture - Preliminary Resulted Blood Peripheral NO GROWTH IN 1 DAY 09/30/16 08:30 Anaerobic Blood Culture - Preliminary Resulted Blood Peripheral NO GROWTH IN 1 DAY 09/30/16 08:30 Aerobic Blood Culture - Preliminary Resulted Blood Peripheral NO GROWTH IN 1 DAY 09/30/16 08:30 Anaerobic Blood Culture - Preliminary Resulted Blood Peripheral NO GROWTH IN 1 DAY Administered Medications Medications (Trade) Dose Ordered Sig/Isael Route PRN Reason Start Time Stop Time Status Last Admin Dose Admin Hydromorphone HCl (Dilaudid Pf Inj) 1 mg Q4H PRN IV PUSH pain 6-10 09/30/16 12:45 09/30/16 18:12 Aspirin (Aspirin Chew) 81 mg DAILY CHEW 10/01/16 09:00 10/01/16 08:13 Cyclosporine (SandIMMUNE) 100 mg BID PO 09/30/16 21:00 Hold 10/01/16 08:13 Lisinopril (Prinivil) 10 mg DAILY PO 09/30/16 13:00 10/01/16 08:14 Pantoprazole Sodium (Protonix) 20 mg DAILY PO 10/01/16 09:00 10/01/16 08:13 Prednisone (Deltasone) 5 mg DAILY PO 10/01/16 09:00 10/01/16 08:13 Propranolol HCl (Inderal) 20 mg Q12HR PO 09/30/16 21:00 10/01/16 08:15 Spironolactone (Aldactone) 50 mg DAILY PO 10/01/16 09:00 10/01/16 08:14 Escitalopram Oxalate (Lexapro) 10 mg DAILY PO 10/01/16 09:00 10/01/16 08:14 Leflunomide (Arava) 20 mg DAILY PO 10/01/16 09:00 10/01/16 08:13 Atorvastatin Calcium (Lipitor) 10 mg DAILY PO 10/01/16 09:00 10/01/16 08:14 Alprazolam 0.5 mg 0.5 mg Q8H PRN PO pain 09/30/16 13:00 10/01/16 02:00 Sodium Chloride (NS 1000 ml Inj) 1,000 ml @ 100 mls/hr Q10H IV 09/30/16 14:50 10/01/16 10:50 IV Flush (NS Flush) 2 ml UNSCH PRN IVF FLUSH AFTER USING IV ACCESS 09/30/16 15:00 09/30/16 18:12 IV Flush (NS Flush) 2 ml BID IVF 09/30/16 21:00 10/01/16 08:16 Acetaminophen/ Hydrocodone Bitart ([place] 5-325 Mg) 2 tab Q4H PRN PO PAIN SCALE 6 TO 10 09/30/16 15:00 10/01/16 11:38 Miscellaneous Information HOLD METFORMIN FOR... Q24H XX 09/30/16 09:37 10/02/16 09:36 10/01/16 09:37 Levofloxacin/ Dextrose (Levaquin 500 Mg Premix Inj) 100 ml @ 100 mls/hr Q24H IV 10/01/16 14:00 10/01/16 14:05 Objective Remarks GENERAL: Pleasant female, lying in bed in nad. SKIN: Warm and dry. HEAD: Normocephalic. EYES: No injection or drainage. NECK: Supple, trachea midline. CARDIOVASCULAR: Regular rate and rhythm RESPIRATORY: Breath sounds equal bilaterally. No accessory muscle use. GASTROINTESTINAL: Abdomen soft, bandages c/d/i, mild soreness around bandages, nondistended. EXTREMITIES: No cyanosis NEUROLOGICAL: No obvious focal deficit. Awake, alert, and oriented x3. 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 Large granular T-cell lymphoma: hold cyclosporin as patient is post-op and at high risk for infection 2. Neutropenia: start gram-negative coverage with Levaquin. Start Neupogen. Monitor WBC 3. monitor CBC 4. supportive care. Attending Statement The exam, history, and the medical decision-making described in the above note were completed with the assistance of the mid-level provider. I reviewed and agree with the findings presented. I attest that I had a [id number] encounter with the patient on the same day, and personally performed and documented my assessment and findings in the medical record. Profoundly neutropenic. ANC < 500. high risk for infection. Start gram negative coverage with IV antibiotics. Levaquin started. If spikes a fever, I would add flagyl to the abx regimen. Hold cyclosporin. Start Neupogen. Will need to monitored for the next 24-[address] Richardson. Discussed with patient's RN Long discussion with the patient. Problem Qualifiers (1) Appendicitis: Qualified Code: K35.80 - Acute appendicitis, unspecified acute appendicitis type Rylie Martinez Oct 01, 2016 16:13 Rico Will MD Oct 02, 2016 00:03
[2016-10-01] MEDS: DEXTROSE 5% IV SCH ×2 (16:15)
[2016-10-01] MEDS: WATER IV SCH ×2 (16:15)
[2016-10-01] MEDS: FILGRASTIM IV SCH ×2 (16:15)
[2016-10-01 17:58] VITALS: O2SAT 97
[2016-10-01 20:00] VITALS: BP 139/67; PULSE 70; RESP 18; TEMP 99; O2SAT 97
--- NOTE | 2016-10-01 21:26 | EKG ---
Date Performed: 09/30/2016 Time Performed: 11:33:04 PTAGE: 55 years EKG: Sinus rhythm NORMAL ECG PREVIOUS TRACING : 09/30/2016 08.01 DOCTOR: Roverto Nair Interpretating Date/Time 10/01/2016 21:13:07
--- NOTE | 2016-10-01 21:44 | MB ---
cc: ZEB HODGSON DATE OF CONSULTATION 09/30/16 DATE OF 1960 REASON FOR CONSULTATION patient with T-cell leukemia and ovarian cancer presenting with abdominal pain. CHIEF COMPLAINT Abdominal pain. HISTORY OF PRESENT ILLNESS This is 55-year-old female who was diagnosed with LGL T-cell leukemia approximately six months ago. She is currently under treatment with immunosuppression consisting of cyclosporin 100 mg daily. She was previously offered treatment with Cytoxan, but she had refused. The patient also has a history of ovarian cancer which is in remission. The patient presented to the emergency department with a three day history of right-sided abdominal pain, nausea, vomiting and diarrhea. A CT scan in the emergency department was completed which showed acute appendicitis. The patient is being admitted to the hospital. I have discussed this case with Dr. Burrell. The patient is in significant amount of pain. The patient will be taken to the OR for surgery. REVIEW OF SYSTEMS Nausea, vomiting, abdominal pain, diarrhea, no headaches, no blurry vision. No dysphagia. No chest pain, no shortness of breath. No cough or congestion. No hematuria. No bright red blood per rectum or melena. No lower extremity edema, no bone pain. PAST MEDICAL HISTORY 1. LDL T cell leukemia. 2. Ovarian cancer. 3. History of rheumatoid arthritis. 4. Degenerative bone disease. 5. Anxiety and depression 6. Hypertension. PAST SURGICAL HISTORY 1. History of omentectomy.11 2. Hysterectomy. 3. Port placement. MEDICATIONS 1. Zofran. 2. Propranolol 20 mg p.o. b.i.d. 3. Premarin 1.25 mg 4. Citalopram 10 mg daily 5. Statin drugs. 6. Leflunomide 40 mg daily, 7. Cyclosporin 100 mg daily. 8. Metformin 500 mg p.o. b.i.d. 9. Lexapro 10 mg daily. ALLERGIES CIPRO PENICILLIN CLEOCIN PLAQUENIL GABAPENTIN MACROBID. FAMILY HISTORY Reviewed and is noncontributory. SOCIAL HISTORY She denies smoking. No drug use and no alcohol abuse. PHYSICAL EXAMINATION VITAL SIGNS: Blood pressure is 130/67, pulse in the 90s, temperature is 97.6, O2 sats are 97% on room air. GENERAL: Well-developed, well-nourished female in [id number] distress. HEENT: Pupils are equal, round, reactive to light. EOMI. No oral thrush. No oral lesions. NECK: Supple. No JVD, no bruits. No lymphadenopathy. CHEST: Clear to auscultation bilaterally. No wheeze, rales or rhonchi. CARDIAC: S1-S2 regular rate and rhythm. ABDOMEN: Soft, tender in the right lower quadrant with some guarding. Bowel sounds are hyperactive. EXTREMITIES: No edema, erythema or cyanosis. SKIN: Without any petechiae, lesion or bruises. NEUROLOGIC: No focal deficits. PSYCHIATRIC: Mood and affect is appropriate. LABORATORY DATA WBCs 2.3, hemoglobin is 12.4, MCV is 85.7, platelet count is 221. Sodium is 137, potassium 4.5, chloride 101, CO2 26.4, anion gap 10, BUN is 14, creatinine 1.37, GFR is 40, glucose is 142, lactic acid is 1.5, calcium is 8.7, total bilirubin is 0.5, AST 16, ALT is 14, alk phos of 59. IMAGING STUDIES CT scan was reviewed. ASSESSMENT/PLAN This is a 55-year-old female with a history of LGL T-cell leukemia who is currently being treated with immunosuppressive therapy. She is currently on cyclosporin. She also has a history of ovarian cancer which is in remission. She presents to the emergency department with right-sided lower abdominal pain along with nausea, vomiting and diarrhea. 1. Acute appendicitis requiring appendectomy. I discussed the case with Dr. Burrell. The patient will proceed with getting an appendectomy. She is currently immunosuppressed and I recommended that the patient be placed on gram-negative coverage with antibiotics. We will hold her cyclosporin during the course of the admission. We will closely monitor her blood counts and any signs and symptoms of systemic infection. 2. LGL T cell leukemia. Daily CBC. We will transfuse the patient as appropriate during this admission. She may also require G-CSF treatment. Thank you for allowing me to participate in the care of this patient. I will continue to follow this patient along. MD MYRA Perdomo/ /7:53 PM /9:25 PM [facility]ERuben
[2016-10-02] VITALS: BP 138/64; PULSE 68; RESP 18; TEMP 97.9; O2SAT 97
[2016-10-02 05:28] LABS: HEMATOCRIT 29.8 % (35.0-46.0); MEAN CELL VOLUME 85.4 FL (80.0-100.0); MEAN CORPUSCULAR HEMOGLOBIN 27.9 PG (27.0-34.0); MEAN CORPUSCULAR HGB CONC 32.6 % (32.0-36.0); PLATELET COUNT 141 TH/MM3 (150-450); RED CELL DISTRIBUTION WIDTH 16.7 % (11.6-17.2)
[2016-10-02 05:35] LABS: HEMO FLAGS AUTO DIFF
[2016-10-02] MEDS: ACETAMINOPHEN/HYDROcodone 325 MG/5 MG TAB PO PRN ×2 (06:08→13:14)
[2016-10-02] MEDS: INSULIN ASPART SUPPLEMENTAL SCALE SQ SCH ×3 (06:17→16:17)
[2016-10-02] MEDS: SODIUM CHLOR 0.9% 1000 ML INJ 1,000 ML IV SCH (06:41)
[2016-10-02 07:58] LABS: BANDS 1 % (0-6); EOSINOPHILS 8 % (0-4); NEUTROPHIL # MANUAL DIFF 0.8 TH/MM3 (1.8-7.7); POLYS (SEG NEUTROPHILS) 41 % (16-70); SCAN/DIFF FINAL DIFF MANUAL; WBC DIFF SAMPLE 100
[2016-10-02 07:59] LABS: PLATELET ESTIMATE SMEAR LOW (NORMAL); PLATELET MORPHOLOGY NORMAL (NORMAL)
[2016-10-02 08:00] VITALS: BP 131/58; PULSE 66; RESP 17; TEMP 97.5; O2SAT 95
--- NOTE | 2016-10-02 08:04 | HHI.PR ---
Subjective Subjective Notes pt comfortable pos flatus Objective Vitals/I&O Vital Signs Date Time Temp Pulse Resp B/P Pulse Ox O2 Delivery O2 Flow Rate FiO2 10/02/16 00:00 97.9 68 18 138/64 97 10/01/16 17:58 21 09/30/16 16:11 Nasal Cannula 2 Labs Laboratory Tests Test 10/02/16 04:23 White Blood Count 2.0 Red Blood Count 3.50 Hemoglobin 9.7 Hematocrit 29.8 Mean Corpuscular Volume 85.4 Mean Corpuscular Hemoglobin 27.9 Mean Corpuscular Hemoglobin 32.6 Concent Red Cell Distribution Width 16.7 Platelet Count 141 Mean Platelet Volume 8.0 Neutrophils (%) (Auto) Lymphocytes (%) (Auto) Monocytes (%) (Auto) Eosinophils (%) (Auto) Basophils (%) (Auto) Neutrophils # (Auto) Lymphocytes # (Auto) Monocytes # (Auto) Eosinophils # (Auto) Basophils # (Auto) CBC Comment AUTO DIFF Differential Total Cells 100 Counted Neutrophils % (Manual) 41 Band Neutrophils % 1 Lymphocytes % 44 Monocytes % 6 Eosinophils % 8 Neutrophils # (Manual) 0.8 Differential Comment FINAL DIFF MANUAL Platelet Estimate LOW Platelet Morphology Comment NORMAL Creatinine 0.97 Estimat Glomerular Filtration 59 Rate Date/Time Procedure Status Source Growth 09/30/16 08:30 Aerobic Blood Culture - Preliminary Resulted Blood Peripheral NO GROWTH IN 1 DAY 09/30/16 08:30 Anaerobic Blood Culture - Preliminary Resulted Blood Peripheral NO GROWTH IN 1 DAY Abdomen: Non-distended, Post-op tenderness Wound Wound : Wound Location: Abdomen Appearance: Clean & Dry A/P Assessment and Plan s/p lap appy POD #2 stable from GS view point when D/C can f/u office 10-14 days Raji Jasso MD Oct 02, 2016 08:04
[2016-10-02] MEDS: SODIUM CHLORIDE 0.9% FLUSH 5 ML FLUSH IVF SCH (09:00)
[2016-10-02] MEDS: predniSONE 5 MG TAB PO SCH (09:04)
[2016-10-02] MEDS: PANTOPRAZOLE SOD 20 MG DELAYED RELEASE TAB PO SCH (09:04)
[2016-10-02] MEDS: LISINOPRIL 10 MG TAB PO SCH (09:04)
[2016-10-02] MEDS: PROPRANOLOL HCL 20 MG TAB PO SCH (09:04)
[2016-10-02] MEDS: SPIRONOLACTONE 50 MG TAB PO SCH (09:04)
[2016-10-02] MEDS: ATORVASTATIN 10 MG TAB PO SCH (09:04)
[2016-10-02] MEDS: ESCITALOPRAM OXALATE 10 MG TAB PO SCH (09:04)
[2016-10-02] MEDS: ASPIRIN 81 MG CHEW TAB CHEW SCH (09:04)
[2016-10-02] MEDS: LEFLUNOMIDE 20 MG TAB PO SCH (09:05)
--- NOTE | 2016-10-02 10:57 | PD.ONC.PN ---
Subjective Subjective Remarks Afebrile overnight. Patient resting comfortably without complaint. She is eating breakfast and tolerating it without problems. No bowel movement yet. + Passing flatus. Objective Data Date Time Temp Pulse Resp B/P Pulse Ox O2 Delivery O2 Flow Rate FiO2 10/02/16 08:00 97.5 66 17 131/58 95 10/02/16 00:00 97.9 68 18 138/64 97 10/01/16 20:00 99.0 70 18 139/67 97 10/01/16 17:58 97 21 10/01/16 14:00 97.0 67 18 132/61 97 10/02/16 10/02/16 10/02/16 07:00 15:00 23:00 Intake Total 763 ml Output Total 1000 ml Balance -237 ml Result Diagram: 10/02/163 10/02/16 042 Laboratory Results Laboratory Tests Test 10/02/16 04:23 White Blood Count 2.0 TH/MM3 Red Blood Count 3.50 MIL/MM3 Hemoglobin 9.7 GM/DL Hematocrit 29.8 % Mean Corpuscular Volume 85.4 FL Mean Corpuscular Hemoglobin 27.9 PG Mean Corpuscular Hemoglobin 32.6 % Concent Red Cell Distribution Width 16.7 % Platelet Count 141 TH/MM3 Mean Platelet Volume 8.0 FL Neutrophils (%) (Auto) % Lymphocytes (%) (Auto) % Monocytes (%) (Auto) % Eosinophils (%) (Auto) % Basophils (%) (Auto) % Neutrophils # (Auto) TH/MM3 Lymphocytes # (Auto) TH/MM3 Monocytes # (Auto) TH/MM3 Eosinophils # (Auto) TH/MM3 Basophils # (Auto) TH/MM3 CBC Comment AUTO DIFF Differential Total Cells 100 Counted Neutrophils % (Manual) 41 % Band Neutrophils % 1 % Lymphocytes % 44 % Monocytes % 6 % Eosinophils % 8 % Neutrophils # (Manual) 0.8 TH/MM3 Differential Comment FINAL DIFF MANUAL Platelet Estimate LOW Platelet Morphology Comment NORMAL Creatinine 0.97 MG/DL Estimat Glomerular Filtration 59 ML/MIN Rate Culture Results Microbiology Date/Time Procedure Status Source Growth 09/30/16 08:30 Aerobic Blood Culture - Preliminary Resulted Blood Peripheral NO GROWTH IN 1 DAY 09/30/16 08:30 Anaerobic Blood Culture - Preliminary Resulted Blood Peripheral NO GROWTH IN 1 DAY 09/30/16 08:30 Aerobic Blood Culture - Preliminary Resulted Blood Peripheral NO GROWTH IN 1 DAY 09/30/16 08:30 Anaerobic Blood Culture - Preliminary Resulted Blood Peripheral NO GROWTH IN 1 DAY Administered Medications Medications (Trade) Dose Ordered Sig/Isael Route PRN Reason Start Time Stop Time Status Last Admin Dose Admin Hydromorphone HCl (Dilaudid Pf Inj) 1 mg Q4H PRN IV PUSH pain 6-10 09/30/16 12:45 09/30/16 18:12 Aspirin (Aspirin Chew) 81 mg DAILY CHEW 10/01/16 09:00 10/02/16 09:04 Cyclosporine (SandIMMUNE) 100 mg BID PO 09/30/16 21:00 Hold 10/01/16 08:13 Lisinopril (Prinivil) 10 mg DAILY PO 09/30/16 13:00 10/02/16 09:04 Pantoprazole Sodium (Protonix) 20 mg DAILY PO 10/01/16 09:00 10/02/16 09:04 Prednisone (Deltasone) 5 mg DAILY PO 10/01/16 09:00 10/02/16 09:04 Propranolol HCl (Inderal) 20 mg Q12HR PO 09/30/16 21:00 10/02/16 09:04 Spironolactone (Aldactone) 50 mg DAILY PO 10/01/16 09:00 10/02/16 09:04 Escitalopram Oxalate (Lexapro) 10 mg DAILY PO 10/01/16 09:00 10/02/16 09:04 Leflunomide (Arava) 20 mg DAILY PO 10/01/16 09:00 10/02/16 09:05 Atorvastatin Calcium (Lipitor) 10 mg DAILY PO 10/01/16 09:00 10/02/16 09:04 Alprazolam 0.5 mg 0.5 mg Q8H PRN PO pain 09/30/16 13:00 10/01/16 22:16 Sodium Chloride (NS 1000 ml Inj) 1,000 ml @ 100 mls/hr Q10H IV 09/30/16 14:50 10/01/16 22:20 IV Flush (NS Flush) 2 ml UNSCH PRN IVF FLUSH AFTER USING IV ACCESS 09/30/16 15:00 09/30/16 18:12 IV Flush (NS Flush) 2 ml BID IVF 09/30/16 21:00 10/01/16 08:16 Acetaminophen/ Hydrocodone Bitart 2 tab 2 tab Q4H PRN PO PAIN SCALE 6 TO 10 09/30/16 15:00 10/02/16 06:08 Levofloxacin/ Dextrose 100 ml @ 100 mls/hr Q24H IV 10/01/16 14:00 10/01/16 14:05 Filgrastim/ Dextrose (Neupogen Inj/ D5W Inj) 16 ml @ 100 mls/hr DAILY@14 IV 10/01/16 16:00 10/01/16 16:15 Objective Remarks GENERAL: Middle aged female, lying in bed in nad. SKIN: Warm and dry. HEAD: Normocephalic. EYES: No injection or drainage. NECK: Supple, trachea midline. CARDIOVASCULAR: Regular rate and rhythm RESPIRATORY: Breath sounds equal bilaterally. No accessory muscle use. GASTROINTESTINAL: Abdomen soft, bandages clean. mildly tender. EXTREMITIES: No cyanosis NEUROLOGICAL: awake and alert, normal speech. 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 Large granular T-cell lymphoma: continue to hold cyclosporin. follow up in clinic next week. 2. Neutropenia: Give Neupogen today prior to d/c. Does not need to be discharged on Neupogen 3. patient clear for discharge. She will need to follow up with Dr. Will next week. Would discharge home on Levaquin. Attending Statement The exam, history, and the medical decision-making described in the above note were completed with the assistance of the mid-level provider. I reviewed and agree with the findings presented. I attest that I had a [id number] encounter with the patient on the same day, and personally performed and documented my assessment and findings in the medical record. Problem Qualifiers (1) Appendicitis: Qualified Code: K35.80 - Acute appendicitis, unspecified acute appendicitis type Rylie Martinez Oct 02, 2016 10:57 Rico Will MD Oct 03, 2016 01:15
[2016-10-02 12:00] VITALS: BP 143/63; PULSE 77; RESP 17; TEMP 95.5; O2SAT 98
[2016-10-02] MEDS: WATER IV SCH ×2 (13:14)
[2016-10-02] MEDS: FILGRASTIM IV SCH ×2 (13:14)
[2016-10-02] MEDS: DEXTROSE 5% IV SCH ×2 (13:14)
[2016-10-02] MEDS: LEVOFLOXACIN 500 MG PREMIX INJ 100 ML IV SCH (13:15)
[2016-10-02] MEDS ORDERED: FILGRASTIM IV SCH ×2 (14:00)
[2016-10-02] MEDS ORDERED: WATER IV SCH ×2 (14:00)
[2016-10-02] MEDS ORDERED: DEXTROSE 5% IV SCH ×2 (14:00)
[2016-10-02 16:00] VITALS: BP 143/67; PULSE 71; RESP 17; TEMP 97.8; O2SAT 98
--- NOTE | 2016-10-02 16:02 | HHI.PR ---
Subjective Remarks LATE ENTRY NOTE FOR 10/01/16 ENTRY FAILED TO SAVE IN iogyn Pt with NO new complaints. Pt tolerating PO intake. Objective Vitals Vital Signs Date Time Temp Pulse Resp B/P Pulse Ox O2 Delivery O2 Flow Rate FiO2 10/02/16 12:00 95.5 77 17 143/63 98 10/02/16 08:00 97.5 66 17 131/58 95 10/02/16 00:00 97.9 68 18 138/64 97 10/01/16 20:00 99.0 70 18 139/67 97 10/01/16 17:58 97 21 10/01/16 10/01/16 10/02/16 15:00 23:00 07:00 Intake Total 711 ml 360 ml 763 ml Output Total 240 ml 1000 ml Balance 711 ml 120 ml -237 ml Intake Oral 360 ml 240 ml IV Total 711 ml 523 ml Output Urine Total 240 ml 1000 ml # Bowel Movements 100 0 Result Diagram: 10/02/163 10/02/16 0423 Imaging Last Impressions Chest X-Ray 09/30/16810 Signed Impressions: Service Date/Time: Friday, September 30, 2016 08:13 - CONCLUSION: No acute disease. No significant change has occurred. Kyle Roy MD Abdomen/Pelvis CT 09/30/16810 Signed Impressions: Service Date/Time: Friday, September 30, 2016 09:33 - CONCLUSION: CT findings consistent with acute appendicitis. Milton Coleman MD FACR Objective Remarks GENERAL: This is a well-nourished, well-developed patient, in no apparent distress. CARDIOVASCULAR: Regular rate and rhythm without murmurs, gallops, or rubs. RESPIRATORY: Clear to auscultation. Breath sounds equal bilaterally. No wheezes , rales, or rhonchi. GASTROINTESTINAL: Abdomen soft, non-tender, nondistended. Normal active bowel sounds MUSCULOSKELETAL: Extremities without clubbing, cyanosis, or edema. NEURO: Alert & Oriented x4 to person, place, time, situation. Moves all ext x4 A/P Problem List: (1) Appendicitis Status: Acute Plan: - s/p appendectomy - pt tolerating diet (2) T-cell lymphoma Status: Chronic Plan: - cyclosporin stopped per Oncology - neupogen - repeat CBC 10/02/16 (3) Diabetes mellitus Status: Chronic Plan: - SSI Problem Qualifiers (1) Appendicitis: Qualified Code: K35.80 - Acute appendicitis, unspecified acute appendicitis type (2) Diabetes mellitus: Thien Richardson DO Oct 02, 2016 16:02
--- NOTE | 2016-10-02 16:11 | HHI.DS ---
Discharge Summary Admission Date Sep 30, 2016 at 12:45 Discharge Date: Oct 02, 2016 Admitting Diagnosis Acute appendicitis (1) Appendicitis Diagnosis: Principal (2) T-cell lymphoma Diagnosis: Secondary (3) Diabetes mellitus Diagnosis: Secondary Consultants Dr. Rico Will - Hematology/Oncology Dr. Raji Bolaños - General Surgery Procedures Laparoscopic appendectomy 09/30/16 Brief History 55 y/o female with hx ovarian cancer in remission with T cell lymphoma on cyclosporin ,with depression,diabetes anxiety with 3 days of right sided abdominal pain with nausea and vomit diarrhea came to er and had on CT scan acute appendicitis and admitted. Patient s/p surgery and is doing well , admitted to medicine for further care. CBC/BMP: 10/02/16 0423 10/02/16 0423 Significant Findings Laboratory Tests Test 09/30/16 09/30/16 10/01/16 10/02/16 08:30 09:00 03:17 04:23 White Blood Count 2.3 TH/MM3 2.9 TH/MM3 2.0 TH/MM3 (4.0-11.0) (4.0-11.0) (4.0-11.0) Lymphocytes (%) (Auto) 55.0 % (9.0-44.0) Monocytes (%) (Auto) 15.8 % (0.0-8.0) Eosinophils (%) (Auto) 4.4 % (0.0-4.0) Neutrophils # (Auto) 0.6 TH/MM3 (1.8-7.7) Lymphocytes % 54 % (9-44) 72 % (9-44) Monocytes % 11 % (0-8) 11 % (0-8) Neutrophils # (Manual) 0.7 TH/MM3 0.3 TH/MM3 0.8 TH/MM3 (1.8-7.7) (1.8-7.7) (1.8-7.7) Ovalocytes 1+ (NORMAL) Keratocytes OCC (NORMAL) Creatinine 1.37 MG/DL 1.06 MG/DL (0.50-1.00) (0.50-1.00) Estimat Glomerular Filtration 40 ML/MIN (>89) 54 ML/MIN (>89) 59 ML/MIN (>89) Rate Random Glucose 142 MG/DL (74-106) Troponin I LESS THAN 0.02 NG/ML (0.02-0.05) Albumin 3.2 GM/DL (3.4-5.0) Urine Turbidity HAZY (CLEAR) Urine Bacteria FEW /hpf (NONE) Urine Mucus FEW /lpf (OCC) Red Blood Count 3.70 MIL/MM3 3.50 MIL/MM3 (4.00-5.30) (4.00-5.30) Hemoglobin 10.4 GM/DL 9.7 GM/DL (11.6-15.3) (11.6-15.3) Hematocrit 31.7 % 29.8 % (35.0-46.0) (35.0-46.0) Neutrophils % (Manual) 10 % (16-70) Eosinophils % 7 % (0-4) 8 % (0-4) Chloride Level 108 MEQ/L (98-107) Calcium Level 7.7 MG/DL (8.5-10.1) Magnesium Level 1.2 MG/DL (1.5-2.5) Platelet Count 141 TH/MM3 (150-450) Platelet Estimate LOW (NORMAL) Imaging Last Impressions Chest X-Ray 09/30/16810 Signed Impressions: Service Date/Time: Friday, September 30, 2016 08:13 - CONCLUSION: No acute disease. No significant change has occurred. Kyle Roy MD Abdomen/Pelvis CT 09/30/16810 Signed Impressions: Service Date/Time: Friday, September 30, 2016 09:33 - CONCLUSION: CT findings consistent with acute appendicitis. Milton Coleman MD FACR PE at Discharge GENERAL: This is a well-nourished, well-developed patient, in no apparent distress. CARDIOVASCULAR: Regular rate and rhythm without murmurs, gallops, or rubs. RESPIRATORY: Clear to auscultation. Breath sounds equal bilaterally. No wheezes , rales, or rhonchi. GASTROINTESTINAL: Abdomen soft, non-tender, nondistended. Normal active bowel sounds MUSCULOSKELETAL: Extremities without clubbing, cyanosis, or edema. NEURO: Alert & Oriented x4 to person, place, time, situation. Moves all ext x4 Hospital Course Pt with hx ovarian cancer in remission and T-cell lymphoma on cyclosporin who follows with Dr. Will. Pt was admitted with right sided abd pain, nausea/ vomiting x [address] scan at admission with evidence of acute appendicitis. Pt was evaluated by General Surgery and taken to the OR on 09/30/16 for a Lap Appy with Dr. Bolaños. Pt was also seen by her Oncologist, Dr. Will, who recommended the patient be placed on gram-negative coverage with antibiotics due to her immunosuppression. She was started on Levaquin IV on 10/01. Pt did have some neutropenia as well. The cyclosporine was held and pt was given Neupogen on 10/01 and 10/02. She was recommended to hold cyclosporin until she follows up with Dr. Will in the clinic next week. Pt will be discharged on Levaquin 500mg po daily x 5 days for a total of 7 days. She will followup with Dr. Bolaños in 10-14 days She will need to followup with Dr. Will next week Pt will followup with her PCP, Dr. Vazquez in 1 week. Pt Condition on Discharge: Stable Discharge Disposition: Discharge Home Discharge Instructions DIET: Follow Instructions for: Heart Healthy Diet Activities you can perform: Regular-No Restrictions Follow up Referrals: Oncology - 1 Week with Rico Will MD New Medications: Levofloxacin (Levaquin) 500 Mg Tab 500 MG PO DAILY Infection #3 Ref 0 TAB Continued Medications: Aspirin (Aspirin Low Dose) 81 Mg Chew 81 MG CHEW DAILY Ref 0 TAB Mnwmzpxerl-Alpxvpxfadpju-Eyyoqboh (Yewhhhumxj-Tunwlpyjzqrte-Myngwjfk) 50-300-40 Mg Cap 1 CAP PO TID Do not exceed 6 capsules/day. PRN HEADACHE Ref 0 CAP Diphenoxylate-Atropine (Diphenoxylate-Atropine) 2.5-0.025 Mg Tab 2 TAB PO Q6H PRN DIARRHEA Ref 0 TAB Escitalopram Liq (Escitalopram Liq) 5 Mg/5 Ml Soln 10 MG PO DAILY ML Estrogens, Conjugated (Premarin) 1.25 Mg Tab 1.25 MG PO DAILY Estrogen Supplements Ref 0 TAB Leflunomide (Leflunomide) 20 Mg Tab 20 MG PO DAILY TAB Lisinopril (Lisinopril) 10 Mg Tab 10 MG PO DAILY Ref 0 TAB Loperamide (Loperamide) 2 Mg Cap 2 MG PO DIRECTED One capsule after each loose stool. Not to exceed 8 capsules per day. PRN DIARRHEA Ref 0 CAP Metformin (Metformin) 500 Mg Tab 500 MG PO BIDPC With meals Blood Sugar Management Ref 0 TAB Omeprazole (Prilosec) 20 Mg Cap 20 MG PO DAILY Ref 0 CAP Ondansetron (Zofran) 4 Mg Tab 4 MG PO Q8HR PRN NAUSEA OR VOMITING Ref 0 TAB Phenazopyridine (Phenazopyridine) 200 Mg Tab 200 MG PO Q8H PRN DYSURIA Ref 0 TAB Prednisone (Prednisone) 5 Mg Tab 5 MG PO DAILY Ref 0 TAB Propranolol (Propranolol) 20 Mg Tab 20 MG PO Q12HR Ref 0 TAB Rosuvastatin (Rosuvastatin) 5 Mg Tab 5 MG PO DAILY Cholesterol Management Ref 0 TAB Spironolactone (Spironolactone) 50 Mg Tab 50 MG PO DAILY Ref 0 TAB Discontinued Medications: Cyclosporine (Cyclosporine) 100 Mg Cap 100 MG PO BID Ref 0 CAP Janice Wilde Oct 02, 2016 16:11 Thien Richardson DO Oct 09, 2016 20:51
--- NOTE | 2016-10-02 16:25 | HHI.DCPOC ---
Discharge Care Plan Diagnosis: (1) Appendicitis (2) T-cell lymphoma (3) Hypertension (4) Depression Goals to Promote Your Health * To prevent worsening of your condition and complications * To maintain your health at the optimal level Directions to Meet Your Goals Take your medications as prescribed Follow your dietary instruction Follow activity as directed Keep your appointments as scheduled Take your immunizations and boosters as scheduled If your symptoms worsen call your PCP, if no PCP go to Urgent Care Center or Emergency Room Smoking is Dangerous to Your Health. Avoid second hand smoke Call the 24-hour hour crisis hotline for domestic abuse at Janice Wilde Oct 02, 2016 16:24 Thien Richardson DO Oct 09, 2016 20:51
[2016-10-02] MEDS ORDERED: LEVA500T PO (16:59)
--- NOTE | 2016-10-06 17:43 | MP ---
cc: RAJI JASSO DATE OF SURGERY: 09/30/2016 DATE OF : 1960 PREOPERATIVE DIAGNOSIS Acute appendicitis. POSTOPERATIVE DIAGNOSIS Acute appendicitis. PROCEDURE Laparoscopic appendectomy. SURGEON Raji Jasso ANESTHESIA General endotracheal. ESTIMATED BLOOD LOSS Scant. FINDINGS Dilated appendix. SPECIMENS None. COMPLICATIONS None. OPERATION The patient was brought to the operating room and placed on the operating table in supine position. Bilateral sequential inflation device was placed on the lower extremities. General anesthesia was instituted. The abdomen was prepped and draped sterilely. A point in the umbilical region was anesthetized with 0.25% Marcaine with epinephrine. A skin incision was made. A 5 mm OptiView port was placed under direct vision and pneumoperitoneum created. Under direct vision a 12 mm infraumbilical midline port and a 5 mm supraumbilical midline port was placed. Prior to placement of all ports the skin and peritoneum were anesthetized with 0.25% Marcaine with epinephrine. The patient was placed in Trendelenburg position right side up. The appendix was brought into view. The mesoappendix was using the Harmonic scalpel. The appendix was then amputated at its base using an endovascular stapler. The appendix was then retrieved from the peritoneal cavity in an Endopouch through the 12 mm port site. The staple line was inspected and appeared to be intact with no evidence of bleeding. The pelvis was irrigated with saline. The CO2 was then released and all ports removed. The fascia at the 12 mm port site was approximated with 0 Vicryl suture. All skin incisions were closed with 4-0 Monocryl. The abdominal wall was cleaned and a sterile dressing placed. The patient was awakened and taken to the recovery room. MD LISETTE Diego/JAMES /10:24 PM /5:36 PM
== END 2016-10-02 19:32 | disposition home or self-care (01) | DRG 342 ==
LOC: NEPE 07:48 → NEDA 12:45 → N07A 16:21
PROVIDERS: ADMIT Hospitalist; ATTEND Hospitalist
PROC: 0DTJ4ZZ Resection of Appendix, Percutaneous Endoscopic Approach (ICD-10-PCS; principal; 2016-09-30 13:28)
DX: K35.80 Unspecified acute appendicitis (principal); C91.Z0 Other lymphoid leukemia not having achieved remission; D70.9 Neutropenia, unspecified; E11.9 Type 2 diabetes mellitus without complications; I10 Essential (primary) hypertension; K21.9 Gastro-esophageal reflux disease without esophagitis; M06.9 Rheumatoid arthritis, unspecified; M19.90 Unspecified osteoarthritis, unspecified site; M79.7 Fibromyalgia; Z85.43 Personal history of malignant neoplasm of ovary; Z90.710 Acquired absence of both cervix and uterus; F41.9 Anxiety disorder, unspecified
CPT/HCPCS: 71010; 74177; 80048; 80053; 81001; 82565; 82948; 83605; 83690; 83735; 84484; 85007; 85027; 85610; 85730; 87040; 88304; 93005; 94150; 96361; 96374; 96375; 96376; C9113; J1170; J1335; J1442; J1815; J1956; J2250; J2270; J2370; J2405; J2710; J3010; J7030; J7120; J7502; J7512; Q9967

== ENCOUNTER 2016-10-20 10:19 | Observation (INO) | payer OTHER ==
[~2016-10-20] VITALS: Ht 165.1 cm; Wt 80.0 kg
[~2016-10-20 10:19] MED LIST changes: +ASPI81CH37 PO; -ASPI81TA21 PO; -ATOR10TA PO; +BUTA1CAP5 PO; -CHILCHW CHEW; -CITA20 PO; -CRAN500C2 PO; +DIPH2.5T14 PO; +ESTR1.25 PO; -GLUCTAB PO; -HYDR-3535 PO; -HYDR25 PO; -KETO2%T TOP; +LEFL1TAB3 PO; -LEFL20TA7 PO; +LEVA500T PO; +LISI10TA3 PO; -LOMO2.5T PO; +LOPE2CAP PO; +METF500T PO; -NEOR100 PO; +PHEN-430 PO; -PRED5 PO; +PRED5TAB PO; -PREM1.25 PO; +PRIL20CA9 PO; -PRIN10TA PO; -PROM25TA5 PO; -PROP20TA24 PO; +PROP20TA3 PO; +ROSU1TAB4 PO; -TAB-TAB PO; -TRIA.1%T TOP; -XANA0.5T PO; +ZOFR4TAB PO; +[UNRECOGNIZED DRUG - CODE] PO
[2016-10-20 10:21] VITALS: BP 127/78; PULSE 136; RESP 14; TEMP 98; O2SAT 92
[2016-10-20 10:54] VITALS: PULSE 130; O2SAT 99
[2016-10-20] MEDS ORDERED: SODIUM CHLOR 0.9% 1000 ML INJ 1,000 ML IV ONE ×2 (12:35→14:30)
--- NOTE | 2016-10-20 12:42 | PD ---
HPI Chief Complaint: Syncope/Near-Syncope Time Seen by Provider: 12:39 Travel History International Travel<30 days: No Contact w/Intl Traveler<30days: No Traveled to known affect area: No History of Present Illness HPI Patient sent to the emergency department from Dr. Patterson's office where she had a near syncopal episode. Patient states while she was being transported she did have a complete syncopal episode losing consciousness on the ride over. Patient states she's had this happen before has been evaluated but has not been told what causes these episodes. Patient states that she's not been eating much over the past couple weeks since being in the hospital recently for appendicitis. Patient reports she is not been able to keep any food down and has constant diarrhea which over the past week and started smelling like C. difficile again. Patient reports that she has palpitations chronically but does not have a bone crusher and is on Xanax for these. Patient denies any chest pain, shortness breath, fevers, back pain, numbness or tingling anywhere. Patient reports a history of T-cell lymphoma but denies being on chemotherapy for this currently. PFSH Past Medical History Arthritis: Yes (RHEUMATOID) Blood Disorders: No Anxiety: Yes Depression: Yes Heart Rhythm Problems: Yes Cancer: Yes (OVARIAN) Cardiovascular Problems: Yes Chemotherapy: Yes (leukemia) Diabetes: Yes Patient Takes Glucophage: Yes Diminished Hearing: No Endocrine: Yes Fibromyalgia: Yes Gastrointestinal Disorders: Yes GERD: Yes Glaucoma: No Genitourinary: Yes Headaches: Yes Hepatitis: No Hiatal Hernia: Yes Hypertension: Yes Immune Disorder: Yes Implanted Vascular Access Dvce: No Musculoskeletal: Yes Neurologic: Yes Psychiatric: Yes Reproductive: No Respiratory: No Immunizations Current: No Migraines: Yes Thyroid Disease: No PNEUMOCCOCAL Vaccine (Year): 2 Menopausal: No : 1 Para: 1 Miscarriage: 0 : 0 Past Surgical History Abdominal Surgery: Yes (OMENTECTOMY STAGING BIOPSY AUG 21, 2010) AICD: No Arteriovenous Shunt: No Cardiac Surgery: No Section: Yes Ear Surgery: No Endocrine Surgery: No Eye Surgery: No Genitourinary Surgery: No Gynecologic Surgery: Yes (HYSTERECTOMY LEAH S&O PELVIC LYMPH NODE BIOPSY) Hysterectomy: Yes Insulin Pump: No Joint Replacement: No Neurologic Surgery: No Oral Surgery: Yes Pacemaker: No Thoracic Surgery: No Valve Replacement: Yes (PORT PLACED THEN REMOVED) Other Surgery: Yes Social History Alcohol Use: No Tobacco Use: No Substance Use: Yes (marijuana) Allergies-Medications (Allergen,Severity, Reaction): Coded Allergies: Ciprofloxacin (Verified Allergy, Severe, Swelling, 09/30/16) SWELLING AND AGGITATION Penicillin (Verified Allergy, Severe, RASH, 09/30/16) Cleocin (Verified Allergy, Intermediate, FLU SX, 09/30/16) Plaquenil (Verified Allergy, Intermediate, FLU SX, 09/30/16) Gabapentin (Verified Allergy, Mild, Rash, 09/30/16) Macrobid (Verified Adverse Reaction, Severe, N&V, 09/30/16) Reported Meds & Prescriptions Reported Meds & Active Scripts Active Reported Escitalopram (Escitalopram Oxalate) 10 Mg Tab 10 Mg PO DAILY Zofran (Ondansetron HCl) 4 Mg Tab 4 Mg PO Q8HR PRN Frghuhckkh-Ibqzmxisvohgk-Qntqwhkv 50-300-40 Mg Cap 1 Cap PO TID PRN Do not exceed 6 capsules/day. Spironolactone 50 Mg Tab 50 Mg PO DAILY Propranolol (Propranolol HCl) 20 Mg Tab 20 Mg PO Q12HR Prednisone 5 Mg Tab 5 Mg PO DAILY Premarin (Estrogens Conjugated) 1.25 Mg Tab 1.25 Mg PO DAILY Loperamide (Loperamide HCl) 2 Mg Cap 2 Mg PO DIRECTED PRN One capsule after each loose stool. Not to exceed 8 capsules per day. Rosuvastatin (Rosuvastatin Calcium) 5 Mg Tab 5 Mg PO DAILY Prilosec (Omeprazole) 20 Mg Cap 20 Mg PO DAILY Leflunomide 20 Mg Tab 20 Mg PO DAILY Aspirin Low Dose (Aspirin) 81 Mg Chew 81 Mg CHEW DAILY Diphenoxylate-Atropine 2.5-0.025 Mg Tab 2 Tab PO Q6H PRN Metformin (Metformin HCl) 500 Mg Tab 500 Mg PO BIDPC With meals Lisinopril 10 Mg Tab 10 Mg PO DAILY Review of Systems Except as stated in HPI: all other systems reviewed are Neg Physical Exam Narrative GENERAL: Well-developed, overly nourished, in no acute distress, and non-ill appearing. SKIN: Warm and dry. Well-healing surgical wounds noted on the abdomen with mild ecchymosis noted. HEAD: Atraumatic. Normocephalic. EYES: Pupils equal and round. EOMI. No scleral icterus. No injection or drainage. ENT: No nasal bleeding or discharge. Mucous membranes pink and moist. NECK: Trachea midline. Supple. No nuclear rigidity. CARDIOVASCULAR: Tachycardia rate and regular rhythm. No murmur appreciated. RESPIRATORY: No accessory muscle use. No respiratory distress. Clear to auscultation. Breath sounds equal bilaterally. GASTROINTESTINAL: Abdomen soft, non-tender, nondistended. Hepatic and splenic margins not palpable. Hyperactive bowel sounds 4. No pulsatile mass. MUSCULOSKELETAL: No obvious deformities. No clubbing. No cyanosis. No edema. Full range of motion. NEUROLOGICAL: Awake and alert. No obvious cranial nerve deficits. Motor grossly within normal limits. Normal speech. PSYCHIATRIC: Appropriate mood and affect; insight and judgment normal. Data Data Last Documented VS Vital Signs Date Time Temp Pulse Resp B/P Pulse Ox O2 Delivery O2 Flow Rate FiO2 10/20/16 13:45 16 97 Room Air 10/20/16 10:54 130 10/20/16 10:21 98.0 127/78 Orders Electrocardiogram (10/20/16 10:57) Complete Blood Count With Diff (10/20/16 12:35) Comprehensive Metabolic Panel (10/20/16 12:35) Magnesium (Mg) (10/20/16 12:35) Ckmb (Isoenzyme) Profile (10/20/16 12:35) Troponin I (10/20/16 12:35) Act Partial Throm Time (Ptt) (10/20/16 12:35) Prothrombin Time / Inr (Pt) (10/20/16 12:35) Urinalysis - C+S If Indicated (10/20/16 12:35) Chest, Single Ap (10/20/16 12:35) Ecg Monitoring (10/20/16 12:35) Iv Access Insert/Monitor (10/20/16 12:35) Oximetry (10/20/16 12:35) Sodium Chloride 0.9% Flush (Ns Flush) (10/20/16 12:45) Sodium Chlor 0.9% 1000 Ml Inj (Ns 1000 M (10/20/16 12:35) C Diff Toxin Pcr (10/20/16 12:36) Ondansetron Inj (Zofran Inj) (10/20/16 12:45) Lactic Acid Sepsis Protocol (10/20/16 14:29) Blood Culture (10/20/16 14:29) Cefepime Inj (Maxipime Inj) (10/20/16 14:29) Sodium Chlor 0.9% 1000 Ml Inj (Ns 1000 M (10/20/16 14:30) Magnesium Sulfate 1 Gm Premix (Magnesium (10/20/16 14:45) Admit Order (Ed Use Only) (10/20/16 15:26) Labs Laboratory Tests Test 10/20/16 10/20/16 12:48 13:20 Urine Color YELLOW Urine Turbidity HAZY Urine pH 5.5 Urine Specific Hagerman 1.021 Urine Protein TRACE mg/dL Urine Glucose (UA) NEG mg/dL Urine Ketones NEG mg/dL Urine Occult Blood NEG Urine Nitrite NEG Urine Bilirubin NEG Urine Urobilinogen LESS THAN 2.0 MG/DL Urine Leukocyte Esterase NEG Urine RBC 1 /hpf Urine WBC 2 /hpf Urine Squamous Epithelial 8 /hpf Cells Urine Bacteria FEW /hpf Urine Hyaline Casts 1 /lpf Urine Mucus FEW /lpf Microscopic Urinalysis Comment CULT NOT INDICATED White Blood Count 1.8 TH/MM3 Red Blood Count 4.20 MIL/MM3 Hemoglobin 11.7 GM/DL Hematocrit 35.0 % Mean Corpuscular Volume 83.3 FL Mean Corpuscular Hemoglobin 27.8 PG Mean Corpuscular Hemoglobin 33.3 % Concent Red Cell Distribution Width 17.5 % Platelet Count 247 TH/MM3 Mean Platelet Volume 7.4 FL Neutrophils (%) (Auto) % Lymphocytes (%) (Auto) % Monocytes (%) (Auto) % Eosinophils (%) (Auto) % Basophils (%) (Auto) % Neutrophils # (Auto) TH/MM3 Lymphocytes # (Auto) TH/MM3 Monocytes # (Auto) TH/MM3 Eosinophils # (Auto) TH/MM3 Basophils # (Auto) TH/MM3 CBC Comment AUTO DIFF Differential Total Cells 100 Counted Neutrophils % (Manual) 9 % Lymphocytes % 63 % Monocytes % 18 % Eosinophils % 10 % Neutrophils # (Manual) 0.2 TH/MM3 Differential Comment FINAL DIFF MANUAL Platelet Estimate NORMAL Platelet Morphology Comment NORMAL Ovalocytes 1+ Keratocytes OCC Prothrombin Time 10.3 SEC Prothromb Time International 0.9 RATIO Ratio Activated Partial 25.6 SEC Thromboplast Time Sodium Level 137 MEQ/L Potassium Level 5.0 MEQ/L Chloride Level 104 MEQ/L Carbon Dioxide Level 24.0 MEQ/L Anion Gap 9 MEQ/L Blood Urea Nitrogen 15 MG/DL Creatinine 1.10 MG/DL Estimat Glomerular Filtration 51 ML/MIN Rate Random Glucose 118 MG/DL Calcium Level 8.6 MG/DL Magnesium Level 1.3 MG/DL Total Bilirubin 0.3 MG/DL Aspartate Amino Transf 20 U/L (AST/SGOT) Alanine Aminotransferase 14 U/L (ALT/SGPT) Alkaline Phosphatase 68 U/L Total Creatine Kinase 30 U/L Troponin I 0.05 NG/ML Total Protein 6.5 GM/DL Albumin 2.7 GM/DL MDM Medical Decision Making Medical Screen Exam Complete: Yes Emergency Medical Condition: Yes Medical Record Reviewed: Yes Interpretation(s) EKG reviewed by Dr. Donnelly, shows sinus tachycardia with ventricular rate of 106. No STEMI Differential Diagnosis Acute coronary syndrome, syncope, C. difficile, sepsis, electrolyte abnormality , dehydration, other Narrative Course Patient seen and examined. Initial laboratory radiological studies were obtained and reviewed. Discussed patient with Dr. Donnelly, who saw and evaluated the patient is in agreement with plan of care and disposition. Discussed all findings and plan care of patient was agreeable for admission. All questions were answered. Physician Communication Physician Communication [id number] Thompson, who is agreeable to admit the patient. Diagnosis Primary Impression: Neutropenia Qualified Code: D70.9 - Neutropenia, unspecified type Additional Impression: Syncope Qualified Code: R55 - Syncope, unspecified syncope type Admitting Information Admitting Physician Requests: Observation Condition: Stable Grzegorz Nath Oct 20, 2016 12:42
[2016-10-20] MEDS ORDERED: SODIUM CHLORIDE 0.9% FLUSH 5 ML FLUSH IVF PRN (12:45)
[2016-10-20] MEDS ORDERED: ONDANSETRON HCL 4 MG/2 ML VIAL IV PUSH ONE (12:45)
[2016-10-20] MEDS ORDERED: ESCI10TA PO (12:54)
--- NOTE | 2016-10-20 13:29 | RADRPT ---
EXAM DATE/TIME: 10/20/2016 12:39 [facility] COMPARISON: CHEST SINGLE AP, September 30, 2016, 8:13. INDICATIONS : Shortness of breath. MEDICAL HISTORY : Hypertension. Diabetes mellitus type II. SURGICAL HISTORY : None. ENCOUNTER: Initial ACUITY: 2 days PAIN SCORE: 0/10 LOCATION: Bilateral chest FINDINGS: A single view of the chest demonstrates the lungs to be symmetrically aerated without evidence of mas s, infiltrate or effusion. The cardiomediastinal contours are unremarkable. Osseous structures are intact. CONCLUSION: No acute disease. Jackson Cheng MD on October 20, 2016 at 13:25 Board Certified Radiologist. This report was verified electronically.
[2016-10-20 13:34] LABS: MEAN CELL VOLUME 83.3 FL (80.0-100.0); MEAN CORPUSCULAR HEMOGLOBIN 27.8 PG (27.0-34.0); MEAN CORPUSCULAR HGB CONC 33.3 % (32.0-36.0); PLATELET COUNT 247 TH/MM3 (150-450); RED CELL DISTRIBUTION WIDTH 17.5 % (11.6-17.2); WHITE BLOOD COUNT 1.8 TH/MM3 (4.0-11.0)
[2016-10-20 13:38] LABS: HEMO FLAGS AUTO DIFF
[2016-10-20 13:43] LABS: APTT (PATIENT) 25.6 SEC (24.3-30.1); INTERNATIONAL NORMALIZED RATIO 0.9 RATIO; PROTHROMBIN TIME - PATIENT 10.3 SEC (9.8-11.6)
[2016-10-20 13:45] VITALS: RESP 16; O2SAT 97
[2016-10-20 14:13] LABS: ALT (GPT) 14 U/L (10-53); ANION GAP 9 MEQ/L (5-15); AST (GOT) 20 U/L (15-37); BLOOD UREA NITROGEN 15 MG/DL (7-18); CHLORIDE 104 MEQ/L (98-107); GLOMERULAR FILTRATION RATE 51 ML/MIN (>89); MAGNESIUM 1.3 MG/DL (1.5-2.5); SODIUM (NA) 137 MEQ/L (136-145)
[2016-10-20 14:17] LABS: ALKALINE PHOSPHATASE 68 U/L (45-117); TOTAL BILIRUBIN ADULT 0.3 MG/DL (0.2-1.0)
[2016-10-20 14:22] LABS: CREATINE KINASE 30 U/L (26-192)
[2016-10-20 14:25] LABS: EOSINOPHILS 10 % (0-4); POLYS (SEG NEUTROPHILS) 9 % (16-70); WBC DIFF SAMPLE 100
[2016-10-20 14:28] LABS: NEUTROPHIL # MANUAL DIFF 0.2 TH/MM3 (1.8-7.7); PLATELET ESTIMATE SMEAR NORMAL (NORMAL); PLATELET MORPHOLOGY NORMAL (NORMAL); SCAN/DIFF FINAL DIFF MANUAL
[2016-10-20 14:29] LABS: KERATOCYTES OCC (NORMAL); OVALOCYTES 1+ (NORMAL)
[2016-10-20] MEDS ORDERED: CEFEPIME INJ 2,000 MG in SODIUM CHLORIDE 0.9% INJ 100 ML IV STA (14:29)
[2016-10-20 14:31] LABS: BACTERIA, URINE FEW /hpf; BLOOD, URINE NEG (NEG); COMMENT (UR) CULT NOT INDICATED; CULTURE IF INDICATED CULT NOT INDICATED; GLUCOSE,URINE NEG (NEG); HYALINE CAST, URINE 1 /lpf (RARE); KETONE, URINE NEG (NEG); MUCUS URINE FEW /lpf (OCC); NITRITE,URINE NEG (NEG); PH, URINE 5.5 (5.0-8.5); SQUAMOUS EPITHELIAL CELL URINE 8 /hpf (0-5); URINE COLOR YELLOW (YELLW/STRAW)
[2016-10-20] MEDS ORDERED: MAGNESIUM SULFATE 1 GM PREMIX 100 ML IV ONE (14:45)
--- NOTE | 2016-10-20 16:34 | PD ---
Physical Exam Date Seen by Provider: Oct 20, 2016 Time Seen by Provider: 14:00 Narrative I, Dr. Donnelly, have reviewed the advance practice practitioner's documentation and am in agreement, met with the patient face to face, made the diagnosis, and the medical decision making was done by me. *My assessment and Findings: Patient seen and evaluated with PA, please see PA for further details. Patient is a 56-year-old female with history of leukemia, multiple medical issues, recent appendectomy, following up with her surgeon today after a few weeks, and had a syncopal episode while at the office. Patient has had previous syncopal episodes similar to this but for unknown reasons. Laboratory Tests Test 10/20/16 10/20/16 12:48 13:20 Urine Turbidity HAZY (CLEAR) Urine Bacteria FEW /hpf (NONE) Urine Mucus FEW /lpf (OCC) White Blood Count 1.8 TH/MM3 (4.0-11.0) Red Cell Distribution Width 17.5 % (11.6-17.2) Neutrophils % (Manual) 9 % (16-70) Lymphocytes % 63 % (9-44) Monocytes % 18 % (0-8) Eosinophils % 10 % (0-4) Neutrophils # (Manual) 0.2 TH/MM3 (1.8-7.7) Ovalocytes 1+ (NORMAL) Keratocytes OCC (NORMAL) Creatinine 1.10 MG/DL (0.50-1.00) Estimat Glomerular Filtration 51 ML/MIN (>89) Rate Random Glucose 118 MG/DL (74-106) Magnesium Level 1.3 MG/DL (1.5-2.5) Albumin 2.7 GM/DL (3.4-5.0) Last 24 hours Impressions Chest X-Ray 10/20/16 7875 Signed Impressions: Service Date/Time: Thursday, October 20, 2016 12:39 - CONCLUSION: No acute disease. Jackson Cheng MD EKG did not show any signs of acute dysrhythmias. Lab work shows significant neutropenia. She is quite tachycardic in the ER. IV fluids were given in the ER. Her magnesium level was low as well and magnesium was also given. At this point, considering her syncopal episode, neutropenia, and tachycardia, there is concern for possible underlying sepsis and IV antibiotics was given after cultures are drawn. Planning to admit the patient as an observation. Case is discussed with family practice residents for admission. Data Data Last Documented VS Vital Signs Date Time Temp Pulse Resp B/P Pulse Ox O2 Delivery O2 Flow Rate FiO2 10/20/16 13:45 16 97 Room Air 10/20/16 10:54 130 10/20/16 10:21 98.0 127/78 Orders Electrocardiogram (10/20/16 10:57) Complete Blood Count With Diff (10/20/16 12:35) Comprehensive Metabolic Panel (10/20/16 12:35) Magnesium (Mg) (10/20/16 12:35) Ckmb (Isoenzyme) Profile (10/20/16 12:35) Troponin I (10/20/16 12:35) Act Partial Throm Time (Ptt) (10/20/16 12:35) Prothrombin Time / Inr (Pt) (10/20/16 12:35) Urinalysis - C+S If Indicated (10/20/16 12:35) Chest, Single Ap (10/20/16 12:35) Ecg Monitoring (10/20/16 12:35) Iv Access Insert/Monitor (10/20/16 12:35) Oximetry (10/20/16 12:35) Sodium Chloride 0.9% Flush (Ns Flush) (10/20/16 12:45) Sodium Chlor 0.9% 1000 Ml Inj (Ns 1000 M (10/20/16 12:35) C Diff Toxin Pcr (10/20/16 12:36) Ondansetron Inj (Zofran Inj) (10/20/16 12:45) Lactic Acid Sepsis Protocol (10/20/16 14:29) Blood Culture (10/20/16 14:29) Cefepime Inj (Maxipime Inj) (10/20/16 14:29) Sodium Chlor 0.9% 1000 Ml Inj (Ns 1000 M (10/20/16 14:30) Magnesium Sulfate 1 Gm Premix (Magnesium (10/20/16 14:45) Admit Order (Ed Use Only) (10/20/16 15:26) Labs Laboratory Tests Test 10/20/16 10/20/16 10/20/16 12:48 13:20 15:00 Urine Color YELLOW Urine Turbidity HAZY Urine pH 5.5 Urine Specific [place] 1.021 Urine Protein TRACE mg/dL Urine Glucose (UA) NEG mg/dL Urine Ketones NEG mg/dL Urine Occult Blood NEG Urine Nitrite NEG Urine Bilirubin NEG Urine Urobilinogen LESS THAN 2.0 MG/DL Urine Leukocyte Esterase NEG Urine RBC 1 /hpf Urine WBC 2 /hpf Urine Squamous Epithelial 8 /hpf Cells Urine Bacteria FEW /hpf Urine Hyaline Casts 1 /lpf Urine Mucus FEW /lpf Microscopic Urinalysis Comment CULT NOT INDICATED White Blood Count 1.8 TH/MM3 Red Blood Count 4.20 MIL/MM3 Hemoglobin 11.7 GM/DL Hematocrit 35.0 % Mean Corpuscular Volume 83.3 FL Mean Corpuscular Hemoglobin 27.8 PG Mean Corpuscular Hemoglobin 33.3 % Concent Red Cell Distribution Width 17.5 % Platelet Count 247 TH/MM3 Mean Platelet Volume 7.4 FL Neutrophils (%) (Auto) % Lymphocytes (%) (Auto) % Monocytes (%) (Auto) % Eosinophils (%) (Auto) % Basophils (%) (Auto) % Neutrophils # (Auto) TH/MM3 Lymphocytes # (Auto) TH/MM3 Monocytes # (Auto) TH/MM3 Eosinophils # (Auto) TH/MM3 Basophils # (Auto) TH/MM3 CBC Comment AUTO DIFF Differential Total Cells 100 Counted Neutrophils % (Manual) 9 % Lymphocytes % 63 % Monocytes % 18 % Eosinophils % 10 % Neutrophils # (Manual) 0.2 TH/MM3 Differential Comment FINAL DIFF MANUAL Platelet Estimate NORMAL Platelet Morphology Comment NORMAL Ovalocytes 1+ Keratocytes OCC Prothrombin Time 10.3 SEC Prothromb Time International 0.9 RATIO Ratio Activated Partial 25.6 SEC Thromboplast Time Sodium Level 137 MEQ/L Potassium Level 5.0 MEQ/L Chloride Level 104 MEQ/L Carbon Dioxide Level 24.0 MEQ/L Anion Gap 9 MEQ/L Blood Urea Nitrogen 15 MG/DL Creatinine 1.10 MG/DL Estimat Glomerular Filtration 51 ML/MIN Rate Random Glucose 118 MG/DL Calcium Level 8.6 MG/DL Magnesium Level 1.3 MG/DL Total Bilirubin 0.3 MG/DL Aspartate Amino Transf 20 U/L (AST/SGOT) Alanine Aminotransferase 14 U/L (ALT/SGPT) Alkaline Phosphatase 68 U/L Total Creatine Kinase 30 U/L Troponin I 0.05 NG/ML Total Protein 6.5 GM/DL Albumin 2.7 GM/DL Lactic Acid Level 2.0 mmol/L [facility] Medical Record Reviewed: Yes Supervised Visit with DEVIKA: Yes Sepsis Criteria SIRS Criteria (2 or more): Heart rate over 90 Severe Sepsis (+one): Lactate >2 Diagnosis Primary Impression: Neutropenia Qualified Code: D70.9 - Neutropenia, unspecified type Additional Impression: Syncope Qualified Code: R55 - Syncope, unspecified syncope type Admitting Information Admitting Physician Requests: Admit Condition: Stable Génesis Donnelly MD Oct 20, 2016 16:34
[2016-10-20 17:30] VITALS: BP 146/67; PULSE 95; RESP 18; O2SAT 97
--- NOTE | 2016-10-20 17:45 | HHI.HP ---
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 she was following with dr Felder and had been on cyclosporin. She has chronic neutropenia. She recently had appendicitis and was on abx and s/p appe. Had c. diff colitis last year. Has recently been of cyclosporin. Developed alot of nausea/vomiting, diarrhea which she thinks is like previous c. diff infection. She felt warm/clammy while sitting in waiting room at surgeon f/u appt. Became diaphoretic and syncopized. Brought to ED and admitted for evalutatation. Review of Systems Other n/v/d dizzy syncope Past Family Social History Past Medical History T-granular lymphocyte leukemia . chronic neutropenia C. diff infection 02/2016 Cancer (Stage IIC, Grade 2 Serous adenocarcinoma of ovary) Chronic Pain due to herniated discs, as well as scoliosis Diabetes Anxiety Arthritis Hypertension Left Breast Mass Osteoporosis Polycystic ovarian disease Rheumatoid Arthritis Caesarean section Hysterectomy - Excision Skin Tag Mons Pubis, laparoscopy w/ lysis of adhesions, RALVH, BSO, Resection large ovarian mass, intraperitoneal bx Reported Medications Escitalopram (Escitalopram Oxalate) 10 Mg Tab 10 Mg PO DAILY Zofran (Ondansetron HCl) 4 Mg Tab 4 Mg PO Q8HR PRN Tqymskbuxv-Tmssbmexjlkhw-Uhgovutp 50-300-40 Mg Cap 1 Cap PO TID PRN Do not exceed 6 capsules/day. Spironolactone 50 Mg Tab 50 Mg PO DAILY Propranolol (Propranolol HCl) 20 Mg Tab 20 Mg PO Q12HR Prednisone 5 Mg Tab 5 Mg PO DAILY Premarin (Estrogens Conjugated) 1.25 Mg Tab 1.25 Mg PO DAILY Loperamide (Loperamide HCl) 2 Mg Cap 2 Mg PO DIRECTED PRN One capsule after each loose stool. Not to exceed 8 capsules per day. Rosuvastatin (Rosuvastatin Calcium) 5 Mg Tab 5 Mg PO DAILY Prilosec (Omeprazole) 20 Mg Cap 20 Mg PO DAILY Leflunomide 20 Mg Tab 20 Mg PO DAILY Aspirin Low Dose (Aspirin) 81 Mg Chew 81 Mg CHEW DAILY Diphenoxylate-Atropine 2.5-0.025 Mg Tab 2 Tab PO Q6H PRN Metformin (Metformin HCl) 500 Mg Tab 500 Mg PO BIDPC With meals Lisinopril 10 Mg Tab 10 Mg PO DAILY Allergies: Coded Allergies: Ciprofloxacin (Verified Allergy, Severe, Swelling, 10/20/16) SWELLING AND AGGITATION Penicillin (Verified Allergy, Severe, RASH, 10/20/16) Cleocin (Verified Allergy, Intermediate, FLU SX, 10/20/16) Plaquenil (Verified Allergy, Intermediate, FLU SX, 10/20/16) Gabapentin (Verified Allergy, Mild, Rash, 10/20/16) Macrobid (Verified Adverse Reaction, Severe, N&V, 10/20/16) Family History nc Social History Hx of tobacco use, smoked for about 5 years, then quit when she was 24 Denies any alcohol use Occasional marijuana use to help with appetite stimulant Pt raised in [place] Physical Exam Vital Signs heent neg heart reg lung cta abd s/nt ext no edema Vital Signs Date Time Temp Pulse Resp B/P Pulse Ox O2 Delivery O2 Flow Rate FiO2 10/20/16 13:45 16 97 Room Air 10/20/16 12:30 16 99 10/20/16 10:54 130 99 10/20/16 10:21 98.0 136 14 127/78 92 Room Air Laboratory Laboratory Tests Test 10/20/16 10/20/16 10/20/16 12:48 13:20 15:00 Urine Color YELLOW Urine Turbidity HAZY Urine pH 5.5 Urine Specific [place] 1.021 Urine Protein TRACE Urine Glucose (UA) NEG Urine Ketones NEG Urine Occult Blood NEG Urine Nitrite NEG Urine Bilirubin NEG Urine Urobilinogen LESS THAN 2.0 Urine Leukocyte Esterase NEG Urine RBC 1 Urine WBC 2 Urine Squamous Epithelial 8 Cells Urine Bacteria FEW Urine Hyaline Casts 1 Urine Mucus FEW Microscopic Urinalysis Comment CULT NOT INDICATED White Blood Count 1.8 Red Blood Count 4.20 Hemoglobin 11.7 Hematocrit 35.0 Mean Corpuscular Volume 83.3 Mean Corpuscular Hemoglobin 27.8 Mean Corpuscular Hemoglobin 33.3 Concent Red Cell Distribution Width 17.5 Platelet Count 247 Mean Platelet Volume 7.4 Neutrophils (%) (Auto) Lymphocytes (%) (Auto) Monocytes (%) (Auto) Eosinophils (%) (Auto) Basophils (%) (Auto) Neutrophils # (Auto) Lymphocytes # (Auto) Monocytes # (Auto) Eosinophils # (Auto) Basophils # (Auto) CBC Comment AUTO DIFF Differential Total Cells 100 Counted Neutrophils % (Manual) 9 Lymphocytes % 63 Monocytes % 18 Eosinophils % 10 Neutrophils # (Manual) 0.2 Differential Comment FINAL DIFF MANUAL Platelet Estimate NORMAL Platelet Morphology Comment NORMAL Ovalocytes 1+ Keratocytes OCC Prothrombin Time 10.3 Prothromb Time International 0.9 Ratio Activated Partial 25.6 Thromboplast Time Sodium Level 137 Potassium Level 5.0 Chloride Level 104 Carbon Dioxide Level 24.0 Anion Gap 9 Blood Urea Nitrogen 15 Creatinine 1.10 Estimat Glomerular Filtration 51 Rate Random Glucose 118 Calcium Level 8.6 Magnesium Level 1.3 Total Bilirubin 0.3 Aspartate Amino Transf 20 (AST/SGOT) Alanine Aminotransferase 14 (ALT/SGPT) Alkaline Phosphatase 68 Total Creatine Kinase 30 Troponin I 0.05 Total Protein 6.5 Albumin 2.7 Lactic Acid Level 2.0 Date/Time Procedure Status Source Growth 10/20/16 15:05 Aerobic Blood Culture Received Blood Peripheral Pending 10/20/16 15:05 Anaerobic Blood Culture Received Blood Peripheral Pending Result Diagram: 10/20/16 1320 10/20/16 1320 Assessment and Plan Problem List: (1) Syncope Status: Acute Plan: Pt has T cell lymphoma. chronic neutropenia. She has been off cyclosporine recent appendicitis and appendectomy. on abx. presents with n/v/d. syncope which may be vasovagal. cont ivf telemetry oob/PT eval dvt prophylaxis hx c.diff. pt thinks this has reoccurred. will check c.diff pcr and if positive then start rx. I will try to get her evaluated by her new oncologist. (2) Rheumatoid arthritis Status: Chronic Plan: cont home meds (3) T-cell lymphoma Status: Chronic Plan: has appt with new oncologist. (4) Hypertension Status: Chronic Plan: home meds (5) Depression Status: Chronic Plan: home meds Physician Certification 2 Midnight Certification Type: Admission for Inpatient Services Order for Inpatient Services 3The services are ordered in accordance with Medicare regulations or non- Medicare payer requirements, as applicable. In the case of services not specified as inpatient-only, they are appropriately provided as inpatient services in accordance with the 2-midnight benchmark. Estimated LOS (days): 3 3 days is the estimated time the patient will need to remain in the hospital, assuming treatment plan goals are met and no additional complications. Post-Hospital Plan: Home Problem Qualifiers (1) Syncope: Qualified Code: R55 - Syncope, unspecified syncope type Mauro Walsh MD Oct 20, 2016 17:45
[2016-10-20] MEDS ORDERED: ONDANSETRON HCL 4 MG/2 ML VIAL IV PUSH PRN (18:30)
[2016-10-20] MEDS ORDERED: DEXTROSE 50% IN WATER 50 ML VIAL(D50) IV PUSH PRN (19:00)
[2016-10-20] MEDS ORDERED: GLUCAGON 1 MG/ML VIAL OTHER PRN (19:00)
[2016-10-20] MEDS: SODIUM CHLOR 0.9% 1000 ML INJ 1,000 ML IV SCH (19:35)
[2016-10-20] MEDS ORDERED: ESCITALOPRAM OXALATE 10 MG TAB PO ONE (20:30)
[2016-10-20] MEDS ORDERED: traMADol HCL 50 MG TAB PO PRN (20:30)
[2016-10-20] MEDS ORDERED: LORazepam 1 MG TAB PO PRN (20:30)
[2016-10-20] MEDS: INSULIN ASPART SUPPLEMENTAL SCALE SQ SCH (21:00)
[2016-10-20] MEDS: PROPRANOLOL HCL 20 MG TAB PO SCH (21:07)
[2016-10-20 21:41] VITALS: BP 128/63; PULSE 80; RESP 18; TEMP 96.9; O2SAT 93
[2016-10-21] VITALS (8 sets, daily range): BP systolic 110–175; BP diastolic 57–75; PULSE 69–92; RESP 16–20; TEMP 97–98.6; O2SAT 93–97
[2016-10-21 05:25] LABS: HEMATOCRIT 31.5 % (35.0-46.0); MEAN CELL VOLUME 83.2 FL (80.0-100.0); MEAN CORPUSCULAR HEMOGLOBIN 27.2 PG (27.0-34.0); MEAN CORPUSCULAR HGB CONC 32.7 % (32.0-36.0); PLATELET COUNT 232 TH/MM3 (150-450); RED BLOOD COUNT 3.79 MIL/MM3 (4.00-5.30); RED CELL DISTRIBUTION WIDTH 17.1 % (11.6-17.2); WHITE BLOOD COUNT 1.7 TH/MM3 (4.0-11.0)
[2016-10-21 05:40] LABS: HEMO FLAGS AUTO DIFF
[2016-10-21 05:44] LABS: BICARBONATE 24.3 MEQ/L (21.0-32.0); POTASSIUM 4.2 MEQ/L (3.5-5.1)
[2016-10-21] MEDS ORDERED: ONDANSETRON ODT 4 MG TAB SL PRN (06:00)
[2016-10-21] MEDS: INSULIN ASPART SUPPLEMENTAL SCALE SQ SCH ×3 (06:05→16:00)
[2016-10-21] MEDS: SODIUM CHLOR 0.9% 1000 ML INJ 1,000 ML IV SCH (07:20)
[2016-10-21] MEDS ORDERED: NON-FORMULARY DRUG (Rosuvastatin 5 MG) PO SCH (09:00)
[2016-10-21] MEDS ORDERED: predniSONE 5 MG TAB PO SCH (09:00)
[2016-10-21] MEDS ORDERED: PT:LEFLUNOMIDE 20 MG PO SCH (09:00)
[2016-10-21] MEDS ORDERED: ASPIRIN 81 MG CHEW TAB CHEW SCH (09:00)
[2016-10-21] MEDS ORDERED: PANTOPRAZOLE SOD 20 MG DELAYED RELEASE TAB PO SCH (09:00)
[2016-10-21] MEDS ORDERED: LISINOPRIL 10 MG TAB PO SCH (09:00)
[2016-10-21] MEDS ORDERED: ESCITALOPRAM OXALATE 10 MG TAB PO SCH (09:00)
[2016-10-21] MEDS ORDERED: NON-FORMULARY DRUG (Leflunomide 20 MG) PO SCH (09:00)
[2016-10-21] MEDS ORDERED: ATORVASTATIN 10 MG TAB PO SCH (09:00)
[2016-10-21] MEDS: PROPRANOLOL HCL 20 MG TAB PO SCH (09:01)
[2016-10-21 09:03] LABS: BANDS 1 % (0-6); EOSINOPHILS 7 % (0-4); POLYS (SEG NEUTROPHILS) 3 % (16-70); WBC DIFF SAMPLE 100
[2016-10-21 09:04] LABS: PLATELET ESTIMATE SMEAR NORMAL (NORMAL); PLATELET MORPHOLOGY NORMAL (NORMAL); SCAN/DIFF FINAL DIFF MANUAL
[2016-10-21 09:09] LABS: NEUTROPHIL # MANUAL DIFF 0.1 TH/MM3 (1.8-7.7)
--- NOTE | 2016-10-21 11:58 | HHI.PR ---
Subjective Remarks pt says n/v/d resolved. just had a formed stool. denies abdomen pain. tolerating diet. ambulating and no dizziness. wants to go home. Objective Vitals nad heart reg lung cta abd s/nt ext no edema Vital Signs Date Time Temp Pulse Resp B/P Pulse Ox O2 Delivery O2 Flow Rate FiO2 10/21/16 07:55 98.4 81 20 175/75 97 10/21/16 05:17 97.0 89 18 146/75 93 10/21/16 01:03 97.4 75 18 131/62 93 10/21/16 00:08 92 10/20/16 21:41 96.9 80 18 128/63 93 10/20/16 17:30 95 18 146/67 97 Room Air 10/20/16 13:45 16 97 Room Air 10/20/16 12:30 16 99 Result Diagram: 10/21/16 0508 10/21/16 0508 A/P Problem List: (1) Syncope Status: Acute Plan: Pt has chronic Large T cell lymphoma. chronic neutropenia. She has been off cyclosporine recent appendicitis and appendectomy. on abx. presents with n/v/d. syncope which may be vasovagal. had n/v/d on admission. now all resolved d/c ivf unable to check c.diff. stool formed now. tolerating diet. pt has chronic neutropenia problems. she was recently told to hold her Cyclosporin until f/u with her oncology doctor. She says an appt with Dr Will is upcoming w/in 1 week. She would rather see him in the office and she wants to go home now. (2) Rheumatoid arthritis Status: Chronic Plan: cont home meds (3) T-cell lymphoma Status: Chronic Plan: has appt with new oncologist. (4) Hypertension Status: Chronic Plan: home meds (5) Depression Status: Chronic Plan: home meds Problem Qualifiers (1) Syncope: Qualified Code: R55 - Syncope, unspecified syncope type Mauro Walsh MD Oct 21, 2016 11:58
--- NOTE | 2016-10-21 12:01 | HHI.DCPOC ---
Discharge Care Plan Diagnosis: (1) T-cell lymphoma (2) Nausea & vomiting (3) Dehydration (4) Vasovagal syncope (5) Chronic neutropenia (6) Rheumatoid arthritis Goals to Promote Your Health * To prevent worsening of your condition and complications * To maintain your health at the optimal level Directions to Meet Your Goals Take your medications as prescribed Follow your dietary instruction Follow activity as directed Keep your appointments as scheduled Take your immunizations and boosters as scheduled If your symptoms worsen call your PCP, if no PCP go to Urgent Care Center or Emergency Room Smoking is Dangerous to Your Health. Avoid second hand smoke Call the 24-hour hour crisis hotline for domestic abuse at Mauro Walsh MD Oct 21, 2016 12:01
--- NOTE | 2016-10-21 23:11 | EKG ---
Date Performed: 10/20/2016 Time Performed: 11:02:43 PTAGE: 56 years EKG: SINUS TACHYCARDIA WITH OCCASIONAL SUPRAVENTRICULAR PREMATURE COMPLEXES ABNORMAL RHYTHM ECG PREVIOUS TRACING : 09/30/2016 11.33 Compared to the previous tracing, rate has increased, other guerra no significant changes DOCTOR: Grady Gordon Interpretating Date/Time 10/21/2016 23:09:45
== END 2016-10-21 20:14 | disposition home or self-care (01) ==
LOC: NEPC 10:19 → NEDH 15:29 → NEDA 15:29 → UNDOADMOB 15:29 → INTOOBSV 17:00 → OBSVTOIN 17:00 → NEDH 17:26 → NEDA 17:26 → NEPFCDU 20:34 → NEDA 20:34 → UNDODISIN 10-21 20:14
PROVIDERS: ADMIT Hospitalist; ATTEND Hospitalist
DX: R55 Syncope and collapse (principal); D70.9 Neutropenia, unspecified; C85.90 Non-Hodgkin lymphoma, unspecified, unspecified site; C56.9 Malignant neoplasm of unspecified ovary; M41.9 Scoliosis, unspecified; M79.7 Fibromyalgia; E11.9 Type 2 diabetes mellitus without complications; R00.2 Palpitations; M06.9 Rheumatoid arthritis, unspecified; I10 Essential (primary) hypertension; K21.9 Gastro-esophageal reflux disease without esophagitis; F12.90 Cannabis use, unspecified, uncomplicated; F32.9 Major depressive disorder, single episode, unspecified; M81.0 Age-related osteoporosis without current pathological fracture
CPT/HCPCS: 71010; 76937; 80048; 80053; 81001; 82550; 82948; 83605; 83735; 84484; 85007; 85027; 85610; 85730; 87040; 93005; 96361; 96365; 96375; 97163; 99285; G0378; J2405; J3475; J7030; J7512

== ENCOUNTER 2016-12-07 03:59 | Observation (INO) | payer OTHER ==
[2016-12-07] VITALS (11 sets, daily range): BP systolic 120–168; BP diastolic 61–87; PULSE 85–132; RESP 16–25; TEMP 98–99.2; O2SAT 94–99
[~2016-12-07 03:59] MED LIST changes: +ESCI10TA PO; -LEVA500T PO; -PHEN-430 PO; -[UNRECOGNIZED DRUG - CODE] PO
[2016-12-07] MEDS ORDERED: SODIUM CHLOR 0.9% 1000 ML INJ 1,000 ML IV SCH ×2 (04:42→10:30)
[2016-12-07] MEDS ORDERED: HYDROmorphone HCL PF 1 MG/ML VIAL IVS ONE (04:45)
[2016-12-07] MEDS ORDERED: LIDOCAINE VISCOUS 2% SOLN 15 ML UDC PO ONE (04:45)
[2016-12-07] MEDS ORDERED: SODIUM CHLORIDE 0.9% FLUSH 10 ML FLUSH IV FLUSH PRN ×2 (04:45→10:45)
[2016-12-07] MEDS ORDERED: SODIUM CHLOR 0.9% 1000 ML INJ 1,000 ML IV ONE (04:45)
[2016-12-07] MEDS ORDERED: ALUMINUM/MAGNESIUM/SIMETH 30 ML CUP PO ONE (04:45)
[2016-12-07 05:07] LABS: HEMATOCRIT 31.5 % (35.0-46.0); MEAN CELL VOLUME 81.4 FL (80.0-100.0); MEAN CORPUSCULAR HEMOGLOBIN 27.5 PG (27.0-34.0); MEAN CORPUSCULAR HGB CONC 33.7 % (32.0-36.0); PLATELET COUNT 317 TH/MM3 (150-450); RED BLOOD COUNT 3.87 MIL/MM3 (4.00-5.30); RED CELL DISTRIBUTION WIDTH 17.8 % (11.6-17.2); WHITE BLOOD COUNT 2.4 TH/MM3 (4.0-11.0)
[2016-12-07] MEDS ORDERED: HYDR50TA94 PO (05:10)
[2016-12-07] MEDS ORDERED: CYCL100C6 PO (05:10)
[2016-12-07 05:14] LABS: HEMO FLAGS AUTO DIFF
[2016-12-07 05:34] LABS: ALKALINE PHOSPHATASE 64 U/L (45-117); ALT (GPT) 18 U/L (10-53); ANION GAP 10 MEQ/L (5-15); AST (GOT) 35 U/L (15-37); BICARBONATE 26.4 MEQ/L (21.0-32.0); BLOOD UREA NITROGEN 15 MG/DL (7-18); CHLORIDE 98 MEQ/L (98-107); GLOMERULAR FILTRATION RATE 43 ML/MIN (>89); SODIUM (NA) 134 MEQ/L (136-145); TOTAL BILIRUBIN ADULT 0.5 MG/DL (0.2-1.0)
[2016-12-07 05:35] LABS: POTASSIUM 4.4 MEQ/L (3.5-5.1)
[2016-12-07 05:56] LABS: EOSINOPHILS 4 % (0-4); METAMYELOCYTES 1 % (0-1); NEUTROPHIL # MANUAL DIFF 0.6 TH/MM3 (1.8-7.7); PLATELET ESTIMATE SMEAR HIGH (NORMAL); PLATELET MORPHOLOGY NORMAL (NORMAL); POLYS (SEG NEUTROPHILS) 26 % (16-70); SCAN/DIFF FINAL DIFF MANUAL; WBC DIFF SAMPLE 100
[2016-12-07 06:00] LABS: BACTERIA, URINE RARE /hpf; BLOOD, URINE NEG (NEG); COMMENT (UR) CULT NOT INDICATED; CULTURE IF INDICATED CULT NOT INDICATED; GLUCOSE,URINE NEG (NEG); GRANULAR CAST, URINE 1 /lpf; HYALINE CAST, URINE 23 /lpf (RARE); KETONE, URINE 10 mg/dL (NEG); MUCUS URINE MOD /lpf (OCC); NITRITE,URINE NEG (NEG); PH, URINE 5.5 (5.0-8.5); SQUAMOUS EPITHELIAL CELL URINE 19 /hpf (0-5); URINE COLOR YELLOW (YELLW/STRAW)
--- NOTE | 2016-12-07 06:48 | PD ---
HPI Chief Complaint: GI Complaint Time Seen by Provider: 04:41 Travel History International Travel<30 days: No Contact w/Intl Traveler<30days: No Traveled to known affect area: No History of Present Illness HPI 56-year-old female arrives due to nausea vomiting diarrhea for a couple days. Any oral intake causes vomiting. Subjective fever and chills reported. No urinary complaints. She denies any unusual foods immediately if caused her symptoms. She's had no vaginal bleeding or discharge. Zofran at home was not helpful. She has a history of leukemia. She followed with Dr. Vazquez and Dr. Will with last chemotherapy about 3 and half months prior. PFSH Past Medical History Arthritis: Yes (RHEUMATOID) Blood Disorders: No Anxiety: Yes Depression: Yes Heart Rhythm Problems: Yes Cancer: Yes (OVARIAN 2010 LEUKEMIA) Cardiovascular Problems: Yes Chemotherapy: Yes Diabetes: Yes Patient Takes Glucophage: Yes (12/04/16 0900) Diminished Hearing: No Endocrine: Yes Fibromyalgia: Yes Gastrointestinal Disorders: Yes GERD: Yes Glaucoma: No Genitourinary: Yes Headaches: Yes Hepatitis: No Hiatal Hernia: Yes Hypertension: Yes Immune Disorder: Yes Implanted Vascular Access Dvce: No Musculoskeletal: Yes Neurologic: Yes Psychiatric: Yes Reproductive: No Respiratory: No Immunizations Current: No Migraines: Yes Thyroid Disease: No Influenza Vaccination: Yes PNEUMOCCOCAL Vaccine (Year): 2 Menopausal: No : 1 Para: 1 Miscarriage: 0 : 0 Past Surgical History Abdominal Surgery: Yes (OMENTECTOMY STAGING BIOPSY AUG 21, 2010) AICD: No Arteriovenous Shunt: No Cardiac Surgery: No Section: Yes Ear Surgery: No Endocrine Surgery: No Eye Surgery: No Genitourinary Surgery: No Gynecologic Surgery: Yes (HYSTERECTOMY LEAH S&O PELVIC LYMPH NODE BIOPSY) Hysterectomy: Yes Insulin Pump: No Joint Replacement: No Neurologic Surgery: No Oral Surgery: Yes Pacemaker: No Thoracic Surgery: No Valve Replacement: Yes (PORT PLACED THEN REMOVED) Other Surgery: Yes Social History Alcohol Use: No Tobacco Use: No Substance Use: Yes (marijuana) Allergies-Medications (Allergen,Severity, Reaction): Coded Allergies: Ciprofloxacin (Verified Allergy, Severe, Swelling, 12/07/16) SWELLING AND AGGITATION Penicillin (Verified Allergy, Severe, RASH, 12/07/16) Cleocin (Verified Allergy, Intermediate, FLU SX, 12/07/16) Plaquenil (Verified Allergy, Intermediate, FLU SX, 12/07/16) Gabapentin (Verified Allergy, Mild, Rash, 12/07/16) Macrobid (Verified Adverse Reaction, Severe, N&V, 12/07/16) Reported Meds & Prescriptions Reported Meds & Active Scripts Active Reported Cyclosporine 100 Mg Cap 100 Mg PO BID Hydroxyzine HCl 50 Mg Tab 50 Mg PO HS Ojxyvlnxng-Qwdwiehinowhj-Mnenpozq 50-300-40 Mg Cap 1 Cap PO TID PRN Do not exceed 6 capsules/day. Spironolactone 50 Mg Tab 50 Mg PO DAILY Propranolol (Propranolol HCl) 20 Mg Tab 20 Mg PO Q12HR Prednisone 5 Mg Tab 5 Mg PO DAILY Premarin (Estrogens Conjugated) 1.25 Mg Tab 1.25 Mg PO DAILY Rosuvastatin (Rosuvastatin Calcium) 5 Mg Tab 5 Mg PO DAILY Leflunomide 20 Mg Tab 20 Mg PO DAILY Aspirin Low Dose (Aspirin) 81 Mg Chew 81 Mg CHEW DAILY Diphenoxylate-Atropine 2.5-0.025 Mg Tab 2 Tab PO Q6H PRN Metformin (Metformin HCl) 500 Mg Tab 500 Mg PO BIDPC With meals Lisinopril 10 Mg Tab 10 Mg PO DAILY Review of Systems Except as stated in HPI: all other systems reviewed are Neg General / Constitutional: Positive: Fever, Chills Gastrointestinal: Positive: Nausea, Vomiting, Diarrhea Physical Exam Narrative GENERAL: 56-year-old female moderate distress SKIN: Focused skin assessment warm/dry. HEAD: Atraumatic. Normocephalic. EYES: Pupils equal and round. No scleral icterus. No injection or drainage. ENT: No nasal bleeding or discharge. Mucous membranes pink and moist. NECK: Trachea midline. No JVD. CARDIOVASCULAR: Regular rate and rhythm. No murmur appreciated. RESPIRATORY: No accessory muscle use. Clear to auscultation. Breath sounds equal bilaterally. GASTROINTESTINAL: Abdomen soft, non-tender, nondistended. Hepatic and splenic margins not palpable. MUSCULOSKELETAL: No obvious deformities. No clubbing. No cyanosis. No edema. NEUROLOGICAL: Awake and alert. No obvious cranial nerve deficits. Motor grossly within normal limits. Normal speech. PSYCHIATRIC: Appropriate mood and affect; insight and judgment normal. Data Data Last Documented VS Vital Signs Date Time Temp Pulse Resp B/P Pulse Ox O2 Delivery O2 Flow Rate FiO2 12/07/16 04:56 104 16 140/70 98 Room Air 12/07/16 04:01 98.0 Vital signs reviewed Orders Complete Blood Count With Diff (12/07/16 04:42) Comprehensive Metabolic Panel (12/07/16 04:42) Urinalysis - C+S If Indicated (12/07/16 04:42) Iv Access Insert/Monitor (12/07/16 04:42) Ecg Monitoring (12/07/16 04:42) Oximetry (12/07/16 04:42) Sodium Chlor 0.9% 1000 Ml Inj (Ns 1000 M (12/07/16 04:42) Sodium Chloride 0.9% Flush (Ns Flush) (12/07/16 04:45) Hydromorphone Pf Inj (Dilaudid Pf Inj) (12/07/16 04:45) Al-Mag Hy-Si 40-40-4 Mg/Ml Liq (Mag-Al P (12/07/16 04:45) Lidocaine 2% Viscous (Xylocaine 2% Visco (12/07/16 04:45) Sodium Chlor 0.9% 1000 Ml Inj (Ns 1000 M (12/07/16 04:45) Labs Laboratory Tests Test 12/07/16 12/07/16 05:00 05:20 White Blood Count 2.4 TH/MM3 Red Blood Count 3.87 MIL/MM3 Hemoglobin 10.6 GM/DL Hematocrit 31.5 % Mean Corpuscular Volume 81.4 FL Mean Corpuscular Hemoglobin 27.5 PG Mean Corpuscular Hemoglobin 33.7 % Concent Red Cell Distribution Width 17.8 % Platelet Count 317 TH/MM3 Mean Platelet Volume 7.3 FL Neutrophils (%) (Auto) % Lymphocytes (%) (Auto) % Monocytes (%) (Auto) % Eosinophils (%) (Auto) % Basophils (%) (Auto) % Neutrophils # (Auto) TH/MM3 Lymphocytes # (Auto) TH/MM3 Monocytes # (Auto) TH/MM3 Eosinophils # (Auto) TH/MM3 Basophils # (Auto) TH/MM3 CBC Comment AUTO DIFF Differential Total Cells 100 Counted Neutrophils % (Manual) 26 % Lymphocytes % 62 % Monocytes % 7 % Eosinophils % 4 % Neutrophils # (Manual) 0.6 TH/MM3 Metamyelocytes 1 % Differential Comment FINAL DIFF MANUAL Platelet Estimate HIGH Platelet Morphology Comment NORMAL Sodium Level 134 MEQ/L Potassium Level 4.4 MEQ/L Chloride Level 98 MEQ/L Carbon Dioxide Level 26.4 MEQ/L Anion Gap 10 MEQ/L Blood Urea Nitrogen 15 MG/DL Creatinine 1.28 MG/DL Estimat Glomerular Filtration 43 ML/MIN Rate Random Glucose 177 MG/DL Calcium Level 8.8 MG/DL Total Bilirubin 0.5 MG/DL Aspartate Amino Transf 35 U/L (AST/SGOT) Alanine Aminotransferase 18 U/L (ALT/SGPT) Alkaline Phosphatase 64 U/L Total Protein 7.2 GM/DL Albumin 2.9 GM/DL Urine Color YELLOW Urine Turbidity HAZY Urine pH 5.5 Urine Specific [place] 1.023 Urine Protein 30 mg/dL Urine Glucose (UA) NEG mg/dL Urine Ketones 10 mg/dL Urine Occult Blood NEG Urine Nitrite NEG Urine Bilirubin NEG Urine Urobilinogen 2.0 MG/DL Urine Leukocyte Esterase NEG Urine RBC LESS THAN 1 /hpf Urine WBC 4 /hpf Urine Squamous Epithelial 19 /hpf Cells Urine Bacteria RARE /hpf Urine Hyaline Casts 23 /lpf Urine Granular Casts 1 /lpf Urine Mucus MOD /lpf Microscopic Urinalysis Comment CULT NOT INDICATED MDM Medical Decision Making Medical Screen Exam Complete: Yes Emergency Medical Condition: Yes Medical Record Reviewed: Yes Differential Diagnosis Gastroenteritis, colitis, dehydration, urinary tract infection Narrative Course CBC & BMP Diagram 12/07/16 05:00 LFTs normal UA no UTI Patient's to be admitted for IV hydration and antiemetics. Discussed with Dr. Richardson. Diagnosis Primary Impression: Nausea vomiting and diarrhea Additional Impression: Neutropenia Qualified Code: D70.1 - Chemotherapy-induced neutropenia Admitting Information Admitting Physician Requests: Observation Larry Gordon MD Dec 07, 2016 06:48
[2016-12-07] MEDS ORDERED: ONDANSETRON HCL 4 MG/2 ML VIAL IV PRN (07:30)
[2016-12-07] MEDS ORDERED: SODIUM CHLORIDE 0.9% FLUSH 10 ML FLUSH IVF PRN (07:30)
[2016-12-07] MEDS: SODIUM CHLORIDE 0.9% FLUSH 10 ML FLUSH IV FLUSH SCH ×2 (09:05→20:31)
[2016-12-07] MEDS ORDERED: XANA1TAB2 PO (10:23)
[2016-12-07] MEDS ORDERED: ALPRAZolam 1 MG TAB PO PRN (10:30)
[2016-12-07] MEDS ORDERED: ACETAMINOPHEN 325 MG TAB PO PRN (10:45)
[2016-12-07] MEDS ORDERED: MAGNESIUM HYDROXIDE SUSP 30 ML CUP PO PRN (10:45)
[2016-12-07] MEDS ORDERED: ONDANSETRON HCL 4 MG/2 ML VIAL IVP PRN (10:45)
[2016-12-07] MEDS ORDERED: NALOXONE HCL 0.4 MG/ML AMP IV PRN (10:45)
[2016-12-07] MEDS ORDERED: TEMAZEPAM 15 MG CAP PO PRN (10:45)
--- NOTE | 2016-12-07 10:49 | HHI.HP ---
HPI Service [facility] Hospitalists Primary Care Physician Maksim Vazquez Admission Diagnosis N/V/D, Leukemia/Neutropenia Chief Complaint: Nausea/vomiting Travel History International Travel<30 Days: No Contact w/Intl Traveler <30 Da: No Traveled to Known Affected Are: No History of Present Illness Ms. Vasquez is a 56 y/o WF with stage II ovarian cancer, T-granular lymphocyte leukemia, chronic neutropenia, RA (follows with Dr. Ulloa), diabetes, HTN and chronic pain. Pt takes Prednisone and Leflunomide for her RA. She had been on Cyclosporin for several months. She was previously admitted in September 2016 with appendicitis and was then admitted again in 10/2016 after a syncopal episode and had been having N/V/D at that time. She states that she has had these episodes intermittently she she had C. diff in 02/2016. [place] [facility] [place] with complaints of intermittent N/V, loose stools, and generalized weakness. She states that the nausea and vomiting has been going on intermittently for the last 2 weeks but worsened on Wednesday, 12/04, and she has been unable to keep down any food or fluids or medications since last . She denies any specific triggers for it. Denies any hematemesis or coffee-ground emesis. She also complains of soft/runny stools, several times per day. No reported blood in stool or melena. She tried using Zofran at home which did not help. Labs at admission noted WBC 2.4, Hgb 10 . She denies any ill contacts, recent travel/camping, she does not drink well water. She denies any new medications changes. She denies any cough, SOB, chest pain, palpitations , or hemoptysis. Review of Systems Constitutional: DENIES: Fever, Chills Eyes: DENIES: Vision loss Ears, nose, mouth, throat: DENIES: Hearing loss Respiratory: DENIES: Cough, Shortness of breath Cardiovascular: DENIES: Chest pain, Palpitations, Lower Extremity Edema Gastrointestinal: COMPLAINS OF: Diarrhea, Nausea, Vomiting Genitourinary: DENIES: Urinary frequency, Urgency Musculoskeletal: DENIES: Back pain Integumentary: DENIES: Rash Neurologic: DENIES: Headache, Localized weakness Psychiatric: DENIES: Confusion, Depression Past Family Social History Past Medical History Cancer (Stage IIC, Grade 2 Serous adenocarcinoma of ovary) Chronic Pain due to herniated discs, as well as scoliosis Diabetes Anxiety Arthritis Hypertension Left Breast Mass Osteoporosis Polycystic ovarian disease Rheumatoid Arthritis Past Surgical History Caesarean section Hysterectomy - Excision Skin Tag Mons Pubis, laparoscopy w/ lysis of adhesions, RALVH, BSO, Resection large ovarian mass, intraperitoneal bx Reported Medications Xanax (Alprazolam) 1 Mg Tab 1 Mg PO BID PRN Hydroxyzine HCl 50 Mg Tab 50 Mg PO HS Nrqmstyhsq-Wotnxxhhmhzga-Eowteakw 50-300-40 Mg Cap 1 Cap PO TID PRN Do not exceed 6 capsules/day. Spironolactone 50 Mg Tab 50 Mg PO DAILY Propranolol (Propranolol HCl) 20 Mg Tab 20 Mg PO Q12HR Prednisone 5 Mg Tab 5 Mg PO DAILY Premarin (Estrogens Conjugated) 1.25 Mg Tab 1.25 Mg PO DAILY Rosuvastatin (Rosuvastatin Calcium) 5 Mg Tab 5 Mg PO DAILY Leflunomide 20 Mg Tab 20 Mg PO DAILY Aspirin Low Dose (Aspirin) 81 Mg Chew 81 Mg CHEW DAILY Metformin (Metformin HCl) 500 Mg Tab 500 Mg PO BIDPC With meals Lisinopril 10 Mg Tab 10 Mg PO DAILY Allergies: Coded Allergies: Ciprofloxacin (Verified Allergy, Severe, Swelling, 12/07/16) SWELLING AND AGGITATION Penicillin (Verified Allergy, Severe, RASH, 12/07/16) Cleocin (Verified Allergy, Intermediate, FLU SX, 12/07/16) Plaquenil (Verified Allergy, Intermediate, FLU SX, 12/07/16) Gabapentin (Verified Allergy, Mild, Rash, 12/07/16) Macrobid (Verified Adverse Reaction, Severe, N&V, 12/07/16) Family History Noncontributory Social History Hx of tobacco use, smoked for about 5 years, then quit when she was 24 Denies any alcohol use Pt raised in [place] Pt does not work currently Pt normally does some cooking and cleaning. Physical Exam Vital Signs Vital Signs Date Time Temp Pulse Resp B/P Pulse Ox O2 Delivery O2 Flow Rate FiO2 12/07/16 07:30 99.2 90 23 132/61 98 Room Air 12/07/16 04:56 104 16 140/70 98 Room Air 12/07/16 04:01 98.0 132 18 125/75 96 Room Air Physical Exam GENERAL: This is a well-nourished, well-developed patient, in no apparent distress. SKIN: Pt with red stretch celis on the abdomen. HEENT: Atraumatic. Normocephalic. No temporal or scalp tenderness. No scleral icterus. Airway patent. NECK: Trachea midline, supple, nontender. CARDIO: Regular. RESP: CTA bilaterally. No wheezes, rales, or rhonchi. ABD: +BS, soft, nondistended, upper abdominal tenderness especially around her previous incisions. EXT: Extremities without clubbing, cyanosis, or edema. NEURO: Awake and alert. Motor and sensory grossly within normal limits. Normal speech. Laboratory Laboratory Tests Test 12/07/16 12/07/16 05:00 05:20 White Blood Count 2.4 Red Blood Count 3.87 Hemoglobin 10.6 Hematocrit 31.5 Mean Corpuscular Volume 81.4 Mean Corpuscular Hemoglobin 27.5 Mean Corpuscular Hemoglobin 33.7 Concent Red Cell Distribution Width 17.8 Platelet Count 317 Mean Platelet Volume 7.3 Neutrophils (%) (Auto) Lymphocytes (%) (Auto) Monocytes (%) (Auto) Eosinophils (%) (Auto) Basophils (%) (Auto) Neutrophils # (Auto) Lymphocytes # (Auto) Monocytes # (Auto) Eosinophils # (Auto) Basophils # (Auto) CBC Comment AUTO DIFF Differential Total Cells 100 Counted Neutrophils % (Manual) 26 Lymphocytes % 62 Monocytes % 7 Eosinophils % 4 Neutrophils # (Manual) 0.6 Metamyelocytes 1 Differential Comment FINAL DIFF MANUAL Platelet Estimate HIGH Platelet Morphology Comment NORMAL Sodium Level 134 Potassium Level 4.4 Chloride Level 98 Carbon Dioxide Level 26.4 Anion Gap 10 Blood Urea Nitrogen 15 Creatinine 1.28 Estimat Glomerular Filtration 43 Rate Random Glucose 177 Calcium Level 8.8 Total Bilirubin 0.5 Aspartate Amino Transf 35 (AST/SGOT) Alanine Aminotransferase 18 (ALT/SGPT) Alkaline Phosphatase 64 Total Protein 7.2 Albumin 2.9 Urine Color YELLOW Urine Turbidity HAZY Urine pH 5.5 Urine Specific [place] 1.023 Urine Protein 30 Urine Glucose (UA) NEG Urine Ketones 10 Urine Occult Blood NEG Urine Nitrite NEG Urine Bilirubin NEG Urine Urobilinogen 2.0 Urine Leukocyte Esterase NEG Urine RBC LESS THAN 1 Urine WBC 4 Urine Squamous Epithelial 19 Cells Urine Bacteria RARE Urine Hyaline Casts 23 Urine Granular Casts 1 Urine Mucus MOD Microscopic Urinalysis Comment CULT NOT INDICATED Result Diagram: 12/07/16 0500 12/07/16 0500 Septic Shock Reassessment Heart: Regular rate and rhythm Lungs: Clear Skin: Warm Assessment and Plan Problem List: (1) Nausea vomiting and diarrhea Status: Acute Plan: - Pt has been having intermittent nausea/vomiting and diarrhea for the last two weeks but has had issues with this on and off since 02/2016. She has been unable to hold anything down for the last 3 days. Etiology for these episodes is unclear, possibly IBS vs. gastroenteritis vs. medication related vs. other. - Pt is notably dehydrated at admission. - Consult gastroenterology for opinion regarding these episodic nausea/vomiting/ diarrhea. - She states that she has not had an egd. Her last colonoscopy was in 2010 and was essentially normal, including pathology. - Give IVF - Zofran PRN - Protonix 40mg IV daily - Check stool studies. - Supportive care - DVT prophylaxis (2) Dehydration Status: Acute Plan: - See above. (3) Rheumatoid arthritis Status: Chronic Plan: - Home meds continued (4) Lymphocytic leukemia Status: Chronic Plan: - Pt has been off Cyclosporine since 09/2016. - She has been unable to followup with Dr. Will as an outpt since that admission. - She will need to arrange followup appt with Dr. Will upon discharge. (5) Diabetes mellitus Status: Chronic Plan: - NovoLog SSI - Accu checks (6) Hypertension Status: Chronic Plan: - Home meds continued (7) Depression Status: Chronic Plan: - Home meds continued Assessment and Plan Patient examined. Assessment and plan formulated with Janice Wilde PA-C. I agree with the above. Janice Wilde Dec 07, 2016 10:48 Thien Richardson DO Dec 10, 2016 23:27
[2016-12-07] MEDS ORDERED: ACETAMIN 325 MG/BUTALBITAL 50 MG/CAFFEINE 40 MG TAB PO PRN (11:00)
--- NOTE | 2016-12-07 11:02 | RADRPT ---
EXAM DATE/TIME: 12/07/2016 10:49 [facility] COMPARISON: CHEST SINGLE AP, October 20, 2016, 12:39. INDICATIONS : Cough. Nausea. Vomiting. MEDICAL HISTORY : Leukemia. Hypertension Diabetes mellitus type II. SURGICAL HISTORY : None. ENCOUNTER: Initial ACUITY: 3 days PAIN SCORE: 0/10 LOCATION: Bilateral chest FINDINGS: A single view of the chest demonstrates the lungs to be symmetrically aerated without evidence of mas s, infiltrate or effusion. The cardiomediastinal contours are unremarkable. Osseous structures are intact. CONCLUSION: No acute disease. Milton Coleman MD FACR on December 07, 2016 at 11:00 Board Certified Radiologist. This report was verified electronically.
[2016-12-07] MEDS: ESTROGENS CONJUGATED 1.25 MG TAB PO SCH (11:49)
[2016-12-07] MEDS: PANTOPRAZOLE SODIUM 40 MG VIAL IV PUSH SCH (12:22)
[2016-12-07] MEDS: ALPRAZolam 0.5 MG TAB PO PRN ×2 (12:23→20:37)
--- NOTE | 2016-12-07 12:55 | RADRPT ---
EXAM DATE/TIME: 12/07/2016 12:08 [facility] COMPARISON: No previous studies available for comparison. INDICATIONS : Right lateral side foot pain. MEDICAL HISTORY : Diabetes mellitus type II. SURGICAL HISTORY : None. ENCOUNTER: Initial ACUITY: 4 - 6 days PAIN SCORE: 10/10 LOCATION: Right lateral foot. FINDINGS: Three view examination of the right foot demonstrates no soft tissue swelling, dislocation, or fractu re. The tarsal bones appear intact. The interphalangeal and metatarsophalangeal joints are intact. The calcaneus is intact. Bony mineralization is normal. CONCLUSION: Negative for fracture or dislocation. Minimal plantar spurring is evident. Follow u p in 7-10 days is suggested if symptoms persist. Milton Coleman MD FACR on December 07, 2016 at 12:53 Board Certified Radiologist. This report was verified electronically.
--- NOTE | 2016-12-07 12:56 | RADRPT ---
EXAM DATE/TIME: 12/07/2016 12:11 [facility] COMPARISON: No previous studies available for comparison. INDICATIONS : Left lateral side foot pain. MEDICAL HISTORY : Diabetes mellitus type II. SURGICAL HISTORY : None. ENCOUNTER: Initial ACUITY: 4 - 6 days PAIN SCORE: 10/10 LOCATION: Left lateral foot FINDINGS: Three view examination of the left foot demonstrates no soft tissue swelling, dislocation, or fractur e. The tarsal bones appear intact. The interphalangeal and metatarsophalangeal joints are intact. The calcaneus is intact. Bony mineralization is normal. CONCLUSION: Negative for fracture or dislocation. Follow up in 7-10 days is suggested if symptoms persist. Milton Coleman MD FACR on December 07, 2016 at 12:54 Board Certified Radiologist. This report was verified electronically.
[2016-12-07] MEDS: NS + KCL 20 MEQ INJ 1,000 ML IV SCH (13:18)
--- NOTE | 2016-12-07 16:43 | PD.CONS ---
HPI History of Present Illness This is a 56 year old female with Stage II Ovarian Cancer 2009 (Hysterectomy, chemotherapy), T-granular lymphocyte leukemia (She was diagnosed about 7 months ago and was being treated with cyclosporin, but was taken off of it 3 months but has not followed up with her oncologist Dr. Will), chronic neutropenia, and Rheumatoid arthritis (taking Prednisone and Leflunomide). Pt came to the ER for evaluation of intermittent N/V, loose stools, and generalized weakness. Her symptoms began about 2 weeks ago and she has been having them intermittently since that time. Wednesday, her symptoms worsened and she was unable to keep any food down. She denies any hematemesis. She reports that she has had diarrhea for many months. She was having a few loose stools per day with no blood or mucous, but this resolved on Wednesday and Wednesday and she has not had a bowel movement since. She has mid abdominal/epigastric pain intermittently x 1 week. This is a dull throbbing pain. She feels that it is aggravated by vomiting. She denies any ill contacts, recent travel/camping, she does not drink well water. She denies any new medications changes. She denies any issues with her gallbladder. She does not know if she has lost any weight. She believes that she has had an EGD a few years ago, but cannot tell me any other information other than it was a man with lamb hair and glasses. Her last colonoscopy was in 2010 and was essentially normal, including pathology. She also complains of "red spots" on her legs that when she picks, she has "thick white discharge." ( Jannet Rollins) PFSH Past Medical History Cancer (Stage IIC, Grade 2 Serous adenocarcinoma of ovary) Chronic Pain due to herniated discs, as well as scoliosis Diabetes Anxiety Arthritis Hypertension Left Breast Mass Osteoporosis Polycystic ovarian disease Rheumatoid Arthritis Past Surgical History Caesarean section Hysterectomy - Excision Skin Tag Mons Pubis, laparoscopy w/ lysis of adhesions, RALVH, BSO, Resection large ovarian mass, intraperitoneal bx EGD COlonoscopy (Jannet Rollins) Coded Allergies: Ciprofloxacin (Verified Allergy, Severe, Swelling, 12/07/16) SWELLING AND AGGITATION Penicillin (Verified Allergy, Severe, RASH, 12/07/16) Cleocin (Verified Allergy, Intermediate, FLU SX, 12/07/16) Plaquenil (Verified Allergy, Intermediate, FLU SX, 12/07/16) Gabapentin (Verified Allergy, Mild, Rash, 12/07/16) Macrobid (Verified Adverse Reaction, Severe, N&V, 12/07/16) Medications Allergies Coded Allergies Type Severity Reaction Last Updated Verified Ciprofloxacin Allergy Severe Swelling 12/07/16 Yes Penicillin Allergy Severe RASH 12/07/16 Yes Cleocin Allergy Intermediate FLU SX 12/07/16 Yes Plaquenil Allergy Intermediate FLU SX 12/07/16 Yes Gabapentin Allergy Mild Rash 12/07/16 Yes Macrobid Adverse Reaction Severe N&V 12/07/16 Yes Active Scripts Medications Dose Route/Sig Days Date Category Dose Instructions Hydroxyzine HCl 50 Mg Tab 50 Mg PO HS 12/07/16 Reported Nnmgwyhwey-Ikaswmdacmwhj-Nyjoxquf 50-300-40 Mg Cap 1 Cap PO TID PRN 09/30/16 Reported Do not exceed 6 capsules/day. Spironolactone 50 Mg Tab 50 Mg PO DAILY 09/30/16 Reported Propranolol (Propranolol HCl) 20 Mg Tab 20 Mg PO Q12HR 09/30/16 Reported Prednisone 5 Mg Tab 5 Mg PO DAILY 09/30/16 Reported Premarin (Estrogens Conjugated) 1.25 Mg Tab 1.25 Mg PO DAILY 09/30/16 Reported Rosuvastatin (Rosuvastatin Calcium) 5 Mg Tab 5 Mg PO DAILY 09/30/16 Reported Leflunomide 20 Mg Tab 20 Mg PO DAILY 09/30/16 Reported Aspirin Low Dose (Aspirin) 81 Mg Chew 81 Mg CHEW DAILY 09/30/16 Reported Metformin (Metformin HCl) 500 Mg Tab 500 Mg PO BIDPC 09/30/16 Reported With meals Lisinopril 10 Mg Tab 10 Mg PO DAILY 09/30/16 Reported Family History Noncontributory Social History Hx of tobacco use, smoked for about 5 years, then quit when she was 24 Denies any alcohol use (Jannet Rollins) Review of Systems Constitutional: COMPLAINS OF: Fatigue, Chills, Change in appetite, DENIES: Fever Respiratory: COMPLAINS OF: Cough, Shortness of breath Cardiovascular: COMPLAINS OF: Chest pain (resolved), Palpitations ( intermittently), DENIES: Lower Extremity Edema Gastrointestinal: COMPLAINS OF: Abdominal pain, Diarrhea, Nausea, Vomiting, Heartburn, DENIES: Black stools, Bloody stools, Constipation, Hematemesis Musculoskeletal: COMPLAINS OF: Muscle aches, Back pain Integumentary: COMPLAINS OF: Rash (spotted red rash to thighs) Hematologic/lymphatic: DENIES: Bruising Psychiatric: DENIES: Confusion (Jannet Rollins) GI Exam Vitals I&O Vital Signs Date Time Temp Pulse Resp B/P Pulse Ox O2 Delivery O2 Flow Rate FiO2 12/07/16 15:07 98.7 85 20 123/66 94 12/07/16 14:49 62 20 130/87 98 12/07/16 12:30 90 18 168/75 98 Room Air 12/07/16 11:30 93 18 148/69 98 Room Air 12/07/16 10:30 87 16 138/71 99 Room Air 12/07/16 09:30 90 16 99 Room Air 12/07/16 08:30 93 25 99 Room Air 12/07/16 07:30 99.2 90 23 132/61 98 Room Air 12/07/16 04:56 104 16 140/70 98 Room Air 12/07/16 04:01 98.0 132 18 125/75 96 Room Air Imaging Last Impressions Chest X-Ray 12/07/16 1044 Signed Impressions: Service Date/Time: Wednesday, December 07, 2016 10:49 - CONCLUSION: No acute disease. Milton Coleman MD FACR Foot X-Ray 12/07/16 0000 Signed Impressions: Service Date/Time: Wednesday, December 07, 2016 12:08 - CONCLUSION: Negative for fracture or dislocation. Minimal plantar spurring is evident. Follow up in 7-10 days is suggested if symptoms persist. Milton Coleman MD FACR Laboratory Test 12/07/16 12/07/16 05:00 05:20 White Blood Count 2.4 TH/MM3 Red Blood Count 3.87 MIL/MM3 Hemoglobin 10.6 GM/DL Hematocrit 31.5 % Mean Corpuscular Volume 81.4 FL Mean Corpuscular Hemoglobin 27.5 PG Mean Corpuscular Hemoglobin 33.7 % Concent Red Cell Distribution Width 17.8 % Platelet Count 317 TH/MM3 Mean Platelet Volume 7.3 FL Neutrophils (%) (Auto) % Lymphocytes (%) (Auto) % Monocytes (%) (Auto) % Eosinophils (%) (Auto) % Basophils (%) (Auto) % Neutrophils # (Auto) TH/MM3 Lymphocytes # (Auto) TH/MM3 Monocytes # (Auto) TH/MM3 Eosinophils # (Auto) TH/MM3 Basophils # (Auto) TH/MM3 CBC Comment AUTO DIFF Differential Total Cells 100 Counted Neutrophils % (Manual) 26 % Lymphocytes % 62 % Monocytes % 7 % Eosinophils % 4 % Neutrophils # (Manual) 0.6 TH/MM3 Metamyelocytes 1 % Differential Comment FINAL DIFF MANUAL Platelet Estimate HIGH Platelet Morphology Comment NORMAL Sodium Level 134 MEQ/L Potassium Level 4.4 MEQ/L Chloride Level 98 MEQ/L Carbon Dioxide Level 26.4 MEQ/L Anion Gap 10 MEQ/L Blood Urea Nitrogen 15 MG/DL Creatinine 1.28 MG/DL Estimat Glomerular Filtration 43 ML/MIN Rate Random Glucose 177 MG/DL Calcium Level 8.8 MG/DL Total Bilirubin 0.5 MG/DL Aspartate Amino Transf 35 U/L (AST/SGOT) Alanine Aminotransferase 18 U/L (ALT/SGPT) Alkaline Phosphatase 64 U/L Total Protein 7.2 GM/DL Albumin 2.9 GM/DL Urine Color YELLOW Urine Turbidity HAZY Urine pH 5.5 Urine Specific [place] 1.023 Urine Protein 30 mg/dL Urine Glucose (UA) NEG mg/dL Urine Ketones 10 mg/dL Urine Occult Blood NEG Urine Nitrite NEG Urine Bilirubin NEG Urine Urobilinogen 2.0 MG/DL Urine Leukocyte Esterase NEG Urine RBC LESS THAN 1 /hpf Urine WBC 4 /hpf Urine Squamous Epithelial 19 /hpf Cells Urine Bacteria RARE /hpf Urine Hyaline Casts 23 /lpf Urine Granular Casts 1 /lpf Urine Mucus MOD /lpf Microscopic Urinalysis Comment CULT NOT INDICATED Physical Examination HEENT: Normocephalic; atraumatic; no jaundice. CHEST: CTA CARDIAC: RRR ABDOMEN: Soft, nondistended, mild tenderness epigastric area; no hepatosplenomegaly; bowel sounds are present in all four quadrants. EXTREMITIES: No clubbing, cyanosis, or edema. SKIN: Red spotted rash to upper thighs HARDWARE DESIGN ENGINEER: No focal deficits; alert and oriented times three. (Jannet Rollins) Assessment and Plan Plan ASSESSMENT: - N/V, Abdominal pain. Has had intermittent n/v with epigastric pain, worsening of symptoms on Wednesday and has not been able to keep anything down since that time. SHe is not currently vomiting and requesting a diet. She states that she had an EGD a few years ago but cannot provide any details. She denies any ill contacts, recent travel/camping, she does not drink well water. She denies any new medications changes. She does not know if she has lost any weight. PPI. ZOfran. IVF. - Anemia. Mild. No blood loss. - Chronic diarrhea. C/O chronic diarrhea with 2-3 loose stools per day for many months. She states this subsided on Wednesday or Wednesday and she has not had any further bowel movements. - PIERRE per primary - Chronic neutropenia, per primary - Hx of Stage II Ovarian Cancer 2009, Hysterectomy, chemotherapy - T-granular lymphocyte leukemia, diagnosed about 7 months ago and was being treated with cyclosporin, but was taken off of it 3 months during a hospitalization and has not followed up with her oncologist Dr. Will. - RA on Prednisone and Leflunomide as outpt. PLAN: - Possible EGD in am (Does not feel she can tolerate a bowel prep for colonoscopy at this time) - Obtain consents - PPI - IVF - Zofran prn - Consider imaging of the abdomen with CT scan once kidney function improves. - Supportive care - Further recommendations to follow based - Pt seen and examined Dr. Carlton and myself and this note is written on his behalf. (Jannet Rollins) Physician Comments Patient seen and examined Agree with above Continue with current supportive care Monitor labs Patient is now agreeable to pursuing an EGD with a colonoscopy we will start the patient on magnesium citrate and plan to do both tomorrow (Domingo Carlton MD) Jannet Rollins Dec 07, 2016 16:43 Domingo Carlton MD Dec 07, 2016 22:05
[2016-12-07] MEDS: metFORMIN HCL 500 MG TAB PO SCH (18:04)
[2016-12-07] MEDS: ACETAMINOPHEN/HYDROcodone 325 MG/10 MG TAB PO PRN (18:05)
[2016-12-07] MEDS: PROPRANOLOL HCL 20 MG TAB PO SCH (20:32)
[2016-12-07] MEDS ORDERED: MAGNESIUM CITRATE SOLN 300 ML BTL PO ONE (21:00)
[2016-12-07] MEDS ORDERED: SODIUM CHLORIDE 0.9% FLUSH 10 ML FLUSH IV FLUSH SCH (21:00)
[2016-12-07 23:52] LABS: C. DIFF EPI 027 PRESUMPTIVE NEGATIVE (NEGATIVE); C. DIFF TOXIN PCR NEGATIVE (NEGATIVE)
[2016-12-08] MEDS: NS + KCL 20 MEQ INJ 1,000 ML IV SCH ×2 (00:23→13:24)
[2016-12-08] MEDS: ACETAMINOPHEN/HYDROcodone 325 MG/10 MG TAB PO PRN ×2 (03:25→13:26)
[2016-12-08 04:14] VITALS: BP 122/76; PULSE 87; RESP 18; TEMP 98.8; O2SAT 98
[2016-12-08] MEDS ORDERED: MAGNESIUM CITRATE SOLN 300 ML BTL PO ONE (06:00)
[2016-12-08 07:31] VITALS: BP 118/63; PULSE 98; RESP 19; TEMP 98; O2SAT 95
[2016-12-08 08:43] LABS: HEMATOCRIT 27.2 % (35.0-46.0); MEAN CELL VOLUME 83.6 FL (80.0-100.0); MEAN CORPUSCULAR HEMOGLOBIN 27.7 PG (27.0-34.0); MEAN CORPUSCULAR HGB CONC 33.1 % (32.0-36.0); PLATELET COUNT 264 TH/MM3 (150-450); RED BLOOD COUNT 3.25 MIL/MM3 (4.00-5.30); RED CELL DISTRIBUTION WIDTH 18.4 % (11.6-17.2); WHITE BLOOD COUNT 1.9 TH/MM3 (4.0-11.0)
[2016-12-08 08:50] LABS: HEMO FLAGS AUTO DIFF
[2016-12-08] MEDS ORDERED: LEFLUNOMIDE 20 MG TAB PO SCH (09:00)
[2016-12-08] MEDS ORDERED: ASPIRIN 81 MG CHEW TAB CHEW SCH (09:00)
[2016-12-08] MEDS ORDERED: SPIRONOLACTONE 50 MG TAB PO SCH (09:00)
[2016-12-08] MEDS: SODIUM CHLORIDE 0.9% FLUSH 10 ML FLUSH IV FLUSH SCH (09:00)
[2016-12-08] MEDS ORDERED: LISINOPRIL 10 MG TAB PO SCH (09:00)
[2016-12-08] MEDS ORDERED: predniSONE 5 MG TAB PO SCH (09:00)
[2016-12-08] MEDS ORDERED: ATORVASTATIN 10 MG TAB PO SCH (09:00)
[2016-12-08 09:13] LABS: BICARBONATE 21.5 MEQ/L (21.0-32.0)
[2016-12-08 10:05] VITALS: BP 118/63; PULSE 98; RESP 19; TEMP 98; O2SAT 95
[2016-12-08 10:08] LABS: BANDS 1 % (0-6); BASOPHILS 2 % (0-2); CORRECTED NUCLEATED RBC 1 /100 WBC (0-0); EOSINOPHILS 6 % (0-4); POLYS (SEG NEUTROPHILS) 21 % (16-70); WBC DIFF SAMPLE 100
[2016-12-08 10:11] LABS: PLATELET ESTIMATE SMEAR NORMAL (NORMAL); PLATELET MORPHOLOGY NORMAL (NORMAL)
[2016-12-08 10:12] LABS: OVALOCYTES 1+ (NORMAL)
[2016-12-08 10:14] LABS: NEUTROPHIL # MANUAL DIFF 0.4 TH/MM3 (1.8-7.7)
[2016-12-08 10:15] LABS: SCAN/DIFF FINAL DIFF MANUAL
[2016-12-08] MEDS ORDERED: PROPOFOL 200 MG/20 ML AMP IV ONE (12:16)
--- NOTE | 2016-12-08 12:43 | GIPROC ---
[facility] [address] [facility]. [facility], [id number] EGD PROCEDURE REPORT EXAM DATE: 12/08/2016 PATIENT NAME: Carolyn Vasquez MR #: [id number] BIRTHDATE: 1960 ATTENDING: Domingo Carlton MD ORDER #: [id number] MECHANICS SUPERVISOR: Mary Davies and Nathalia Woods STATUS: inpatient INDICATIONS: The patient is a 56 yr old female here for an EGD due to nausea, vomiting, and chronic diarrhea PROCEDURE PERFORMED: EGD w/ biopsy MEDICATIONS: None and Per Anesthesia. TOPICAL ANESTHETIC: CONSENT: The patient understands the risks and benefits of the procedure and understands that these risks include, but are not limited to: sedation, allergic reaction, infection, perforation and/or bleeding. Alternative means of evaluation and treatment include, among others: physical exam, x-rays, and/or surgical intervention. The patient elects to proceed with this endoscopic procedure. medical equipment was checked for proper function. Hand hygiene and appropriate measures for infection prevention was taken. After the risks, benefits and alternatives of the procedure were thoroughly explained, Informed consent was verified, confirmed and timeout was successfully executed by the treatment team. The patient was anesthetized with topical anesthesia and the EC-[id number] (Pedi C) endoscope was introduced through the mouth and advanced to the second portion of the duodenum. Retroflexed views revealed no abnormalities The gastroscope was then slowly withdrawn and removed. STOMACH: A large hiatal hernia was noted. The endoscopy was otherwise normal. Multiple biopsies were performed from the duodenum. ADVERSE EVENTS: There were no complications. IMPRESSIONS: 1. Large hiatal hernia 2. Normal endoscopy otherwise 3. Retroflexed views revealed no abnormalities RECOMMENDATIONS: 1. Await biopsy results. Biopsy results will not be ready for 7-10 days. If you don't hear from us in two weeks, call our office for biopsy results. 2. Follow-up: GI clinic 4 week(s) 3. Continue current supportive measures and advance diet PATIENT CONDITION: stable DISPOSITION: Inpatient REPEAT EXAM: Domingo Carlton MD eSigned: Domingo Carlton MD 12/08/2016 12:43 PM cc: PATIENT NAME: Carolyn Vasquez MR#: [id number]
--- NOTE | 2016-12-08 12:45 | GIPROC ---
[facility] [address] [facility]. [facility], [address] COLONOSCOPY PROCEDURE REPORT EXAM DATE: 12/08/2016 PATIENT NAME: Carolyn Vasquez MR #: [id number] BIRTHDATE: 1960 ENDOSCOPIST: Domingo Carlton MD ORDER #: [id number] PRESS DEPARTMENT MANAGER: Mary Davies and Nathalia Woods STATUS: inpatient INDICATIONS: The patient is a 56 yr old female here for a colonoscopy due to chronic diarrhea PROCEDURE PERFORMED: Colonoscopy with biopsy MEDICATIONS: None and Per Anesthesia. PREP QUALITY: excellent ESTIMATED BLOOD LOSS: None CONSENT: The patient understands the risks and benefits of the procedure and understands that these risks include, but are not limited to: sedation, allergic reaction, infection, perforation and/or bleeding. Alternative means of evaluation and treatment include, among others: physical exam, x-rays, and/or surgical intervention. The patient elects to proceed with this endoscopic procedure. medical equipment was checked for proper function. Hand hygiene and appropriate measures for infection prevention was taken. After the risks, benefits and alternatives of the procedure were thoroughly explained, Informed consent was verified, confirmed and timeout was successfully executed by the treatment team. A digital exam revealed no abnormalities of the rectum The Pentax [id number] endoscope was introduced through the anus and advanced to the cecum, which was identified by both the appendix and ileocecal valve. The instrument was then slowly withdrawn as the colon was fully examined. COLON FINDINGS: The colonic mucosa appeared normal throughout the entire examined colon. Multiple random biopsies of the area were performed. Retroflexed views revealed no abnormalities The scope was then completely withdrawn from the patient and the procedure terminated. PROCEDURE WITHDRAWAL TIME:5.9minutes ADVERSE EVENTS: There were no complications. IMPRESSIONS: 1. The colonic mucosa appeared normal throughout the entire examined colon; multiple random biopsies of the area were performed 2. Retroflexed views revealed no abnormalities 3. Revealed no abnormalities of the rectum RECOMMENDATIONS: 1. Await biopsy results. Biopsy results will not be ready for 7-10 days. If you don't hear from us in two weeks, call our office for results. 2. Follow-up: GI Clinic 4 week(s) 3. Yearly hemoccult 4. High fiber diet RECALL: Return 10 years Colonoscopy Domingo Carlton MD eSigned: Domingo Carlton MD 12/08/2016 12:45 PM cc:
[2016-12-08] MEDS: metFORMIN HCL 500 MG TAB PO SCH ×2 (13:24→18:00)
[2016-12-08] MEDS: PROPRANOLOL HCL 20 MG TAB PO SCH (13:25)
[2016-12-08] MEDS: ESTROGENS CONJUGATED 1.25 MG TAB PO SCH (13:25)
[2016-12-08] MEDS: PANTOPRAZOLE SODIUM 40 MG VIAL IV PUSH SCH (13:26)
--- NOTE | 2016-12-08 14:38 | HHI.PR ---
Subjective Remarks Pt had EGD/colonoscopy today. She has been eating and drinking well today and feels well enough to go home. PT recommended [facility]HC/PT and a walker for home. Objective Vitals Vital Signs Date Time Temp Pulse Resp B/P Pulse Ox O2 Delivery O2 Flow Rate FiO2 12/08/16 12:41 88 18 134/67 100 12/08/16 12:36 87 18 130/64 100 12/08/16 12:30 98.6 87 16 126/59 94 12/08/16 10:05 98.0 98 19 118/63 95 12/08/16 07:31 98.0 98 19 118/63 95 12/08/16 04:14 98.8 87 18 122/76 98 12/07/16 21:00 98.8 97 18 120/66 97 12/07/16 15:07 98.7 85 20 123/66 94 12/07/16 14:49 62 20 130/87 98 12/07/16 12/07/16 12/08/16 15:00 23:00 07:00 Intake Total 730 ml Balance 730 ml Intake Oral 730 ml # Voids 2 # Bowel Movements 4 Result Diagram: 12/08/16 0815 12/08/16 0815 Other Results Laboratory Tests Test 12/07/16 12/07/16 12/07/16 12/08/16 05:00 05:20 20:25 08:15 White Blood Count 2.4 TH/MM3 1.9 TH/MM3 Red Blood Count 3.87 MIL/MM3 3.25 MIL/MM3 Hemoglobin 10.6 GM/DL 9.0 GM/DL Hematocrit 31.5 % 27.2 % Mean Corpuscular Volume 81.4 FL 83.6 FL Mean Corpuscular Hemoglobin 27.5 PG 27.7 PG Mean Corpuscular Hemoglobin 33.7 % 33.1 % Concent Red Cell Distribution Width 17.8 % 18.4 % Platelet Count 317 TH/MM3 264 TH/MM3 Mean Platelet Volume 7.3 FL 7.1 FL Neutrophils (%) (Auto) % % Lymphocytes (%) (Auto) % % Monocytes (%) (Auto) % % Eosinophils (%) (Auto) % % Basophils (%) (Auto) % % Neutrophils # (Auto) TH/MM3 TH/MM3 Lymphocytes # (Auto) TH/MM3 TH/MM3 Monocytes # (Auto) TH/MM3 TH/MM3 Eosinophils # (Auto) TH/MM3 TH/MM3 Basophils # (Auto) TH/MM3 TH/MM3 CBC Comment AUTO DIFF AUTO DIFF Differential Total Cells 100 100 Counted Neutrophils % (Manual) 26 % 21 % Lymphocytes % 62 % 63 % Monocytes % 7 % 7 % Eosinophils % 4 % 6 % Neutrophils # (Manual) 0.6 TH/MM3 0.4 TH/MM3 Metamyelocytes 1 % Differential Comment FINAL DIFF FINAL DIFF MANUAL MANUAL Platelet Estimate HIGH NORMAL Platelet Morphology Comment NORMAL NORMAL Sodium Level 134 MEQ/L 139 MEQ/L Potassium Level 4.4 MEQ/L 4.0 MEQ/L Chloride Level 98 MEQ/L 109 MEQ/L Carbon Dioxide Level 26.4 MEQ/L 21.5 MEQ/L Anion Gap 10 MEQ/L 9 MEQ/L Blood Urea Nitrogen 15 MG/DL 8 MG/DL Creatinine 1.28 MG/DL 0.87 MG/DL Estimat Glomerular Filtration 43 ML/MIN 67 ML/MIN Rate Random Glucose 177 MG/DL 90 MG/DL Calcium Level 8.8 MG/DL 8.0 MG/DL Total Bilirubin 0.5 MG/DL Aspartate Amino Transf 35 U/L (AST/SGOT) Alanine Aminotransferase 18 U/L (ALT/SGPT) Alkaline Phosphatase 64 U/L Total Protein 7.2 GM/DL Albumin 2.9 GM/DL Urine Color YELLOW Urine Turbidity HAZY Urine pH 5.5 Urine Specific Fields 1.023 Urine Protein 30 mg/dL Urine Glucose (UA) NEG mg/dL Urine Ketones 10 mg/dL Urine Occult Blood NEG Urine Nitrite NEG Urine Bilirubin NEG Urine Urobilinogen 2.0 MG/DL Urine Leukocyte Esterase NEG Urine RBC LESS THAN 1 /hpf Urine WBC 4 /hpf Urine Squamous Epithelial 19 /hpf Cells Urine Bacteria RARE /hpf Urine Hyaline Casts 23 /lpf Urine Granular Casts 1 /lpf Urine Mucus MOD /lpf Microscopic Urinalysis Comment CULT NOT INDICATED Stool C. difficile Toxin (PCR) NEGATIVE Stl C. difficile Toxin PRESUMPTIVE Epiderm 027 NEGATIVE Band Neutrophils % 1 % Basophils % 2 % Nucleated Red Blood Cells 1 /100 WBC Ovalocytes 1+ Magnesium Level 2.0 MG/DL Imaging Last Impressions Chest X-Ray 12/07/16 1044 Signed Impressions: Service Date/Time: Wednesday, December 07, 2016 10:49 - CONCLUSION: No acute disease. Milton Coleman MD FACR Foot X-Ray 12/07/16 0000 Signed Impressions: Service Date/Time: Wednesday, December 07, 2016 12:08 - CONCLUSION: Negative for fracture or dislocation. Minimal plantar spurring is evident. Follow up in 7-10 days is suggested if symptoms persist. Milton Coleman MD FACR Objective Remarks General: NAD, AAOx3 Chest: CTA Cardiac: Regular Abd: +BS, soft ND/NT Ext: No edema A/P Problem List: (1) Nausea vomiting and diarrhea Status: Acute Plan: - Pt has been having intermittent nausea/vomiting and diarrhea for the last two weeks but has had issues with this on and off since 02/2016. She has been unable to hold anything down for the last 3 days. Etiology for these episodes is unclear, possibly IBS vs. gastroenteritis vs. other. - Pt is notably dehydrated at admission. - Appreciate gastroenterology consultation. - Pt underwent evaluation with EGD/colonoscopy (12/08/16) --> Large hiatal hernia, normal colonoscopy with random biopsies taken. Pathology pending. - Pt has improved clinically today and is tolerating regular diet. - Pt reports that she is feeling well enough to go home today. - Protonix 40mg daily - C. diff negative. - She will need to followup with GI in 2 weeks. (2) Dehydration Status: Acute Plan: - See above. (3) Rheumatoid arthritis Status: Chronic Plan: - Home meds continued (4) Lymphocytic leukemia Status: Chronic Plan: - Pt has been off Cyclosporine since 09/2016. - She has been unable to followup with Dr. Will as an outpt since that admission. - She will need to arrange followup appt with Dr. Will upon discharge. (5) Diabetes mellitus Status: Chronic Plan: - NovoLog SSI - Accu checks (6) Hypertension Status: Chronic Plan: - Home meds continued (7) Depression Status: Chronic Plan: - Home meds continued Assessment and Plan Patient examined. Assessment and plan formulated with Janice Wilde PA-C. I agree with the above. Janice Wilde Dec 08, 2016 14:38 Thien Richardson DO Dec 10, 2016 23:27
[2016-12-08 15:37] VITALS: BP 107/57; PULSE 73; RESP 19; TEMP 98.7; O2SAT 94
[2016-12-08] MEDS ORDERED: ALPR.5 PO (16:55)
[2016-12-08] MEDS ORDERED: WALKER WHEELS/F1 MIS (17:01)
--- NOTE | 2016-12-08 17:01 | HHI.FF ---
Face to Face Verification Diagnosis: (1) Sacral decubitus ulcer, stage III (2) Nausea & vomiting (3) T-cell lymphoma (4) Nausea vomiting and diarrhea (5) Rheumatoid arthritis (6) Degenerative disc disease (7) Diabetes mellitus (8) Hypertension (9) Depression Physical Therapy Order: Evaluate and Treat, Improve ambulation, Strength and gait training I have seen patient Carolyn Vasquez on 12/08/16. My clinical findings support the need for the requested home health care services because: Ltd mobility - disease progression Deconditioned w/ increased weakness Med compliance is questionable Need for psychosocial assistance I certify that my clinical findings support that this patient is homebound because: Impaired cognitive ability/safety Unsafe to leave home unassisted Need for psychosocial assistance Unable to use public transportation Thien Richardson DO Dec 08, 2016 17:01
[2016-12-08] MEDS ORDERED: PROT40TA PO (17:02)
--- NOTE | 2016-12-08 22:22 | EKG ---
Date Performed: 12/07/2016 Time Performed: 12:14:21 PTAGE: 56 years EKG: Sinus rhythm Since previous tracing, no significant change noted NORMAL ECG PREVIOUS TRACING : 10/20/2016 11.02 DOCTOR: Sowmya Sauer Interpretating Date/Time 12/08/2016 22:19:49
== END 2016-12-08 18:31 | disposition home or self-care (01) ==
LOC: NEPC 03:59 → NEDA 07:21 → NEDH 13:06 → NEPGCP 15:02
PROVIDERS: ADMIT Hospitalist; ATTEND Hospitalist
DX: K52.9 Noninfective gastroenteritis and colitis, unspecified (principal); K44.9 Diaphragmatic hernia without obstruction or gangrene; E86.0 Dehydration; K21.9 Gastro-esophageal reflux disease without esophagitis; M06.9 Rheumatoid arthritis, unspecified; C91.10 Chronic lymphocytic leukemia of B-cell type not having achieved remission; E11.9 Type 2 diabetes mellitus without complications; I10 Essential (primary) hypertension; F32.9 Major depressive disorder, single episode, unspecified; F41.9 Anxiety disorder, unspecified; M19.90 Unspecified osteoarthritis, unspecified site; M81.0 Age-related osteoporosis without current pathological fracture; D64.9 Anemia, unspecified; N17.9 Acute kidney failure, unspecified; D70.9 Neutropenia, unspecified; M79.7 Fibromyalgia; Z79.82 Long term (current) use of aspirin; Z85.43 Personal history of malignant neoplasm of ovary; Z87.891 Personal history of nicotine dependence
CPT/HCPCS: 43239; 45380; 71010; 73630; 80048; 80053; 81001; 83735; 85007; 85025; 85027; 87205; 87493; 88305; 93005; 96361; 96374; 97163; 99284; C9113; G0378; G8987; G8988; J1170; J3480; J7030; J7512

== ENCOUNTER 2017-01-05 09:20 | Observation (INO) | payer OTHER ==
[~2017-01-05] VITALS: Ht 165.1 cm; Wt 74.0 kg
[~2017-01-05 09:20] MED LIST changes: +ALPR.5 PO; -DIPH2.5T14 PO; -ESCI10TA PO; -LOPE2CAP PO; -PRIL20CA9 PO; +PROT40TA PO; +WALKER WHEELS/F1 MIS; -ZOFR4TAB PO
[2017-01-05 09:22] VITALS: BP 114/68; PULSE 114; RESP 16; TEMP 97.8; O2SAT 98
[2017-01-05] MEDS ORDERED: DICYCLOMINE HCL 20 MG/2 ML VIAL IM ONE (10:15)
[2017-01-05] MEDS ORDERED: SODIUM CHLOR 0.9% 1000 ML INJ 1,000 ML IV ONE (10:15)
[2017-01-05] MEDS ORDERED: ONDANSETRON HCL 4 MG/2 ML VIAL IV ONE (10:15)
[2017-01-05 10:33] LABS: AUTOMATED NEUTROPHIL # 1.4 TH/MM3 (1.8-7.7); BASOPHIL % 0.5 % (0.0-2.0); EOSINOPHIL # 0.1 TH/MM3 (0-0.4); EOSINOPHIL % 4.2 % (0.0-4.0); HEMATOCRIT 35.4 % (35.0-46.0); HEMO FLAGS DIFF FINAL; LYMPH % 42.4 % (9.0-44.0); LYMPHOCYTE # 1.5 TH/MM3 (1.0-4.8); MEAN CELL VOLUME 83.2 FL (80.0-100.0); MEAN CORPUSCULAR HEMOGLOBIN 27.9 PG (27.0-34.0); MEAN CORPUSCULAR HGB CONC 33.5 % (32.0-36.0); MONO % 13.1 % (0.0-8.0); NEUT % 39.8 % (16.0-70.0); PLATELET COUNT 352 TH/MM3 (150-450); RED BLOOD COUNT 4.26 MIL/MM3 (4.00-5.30); RED CELL DISTRIBUTION WIDTH 20.6 % (11.6-17.2); WHITE BLOOD COUNT 3.4 TH/MM3 (4.0-11.0)
[2017-01-05 10:41] LABS: BACTERIA, URINE RARE /hpf; BLOOD, URINE NEG (NEG); CALCIUM OXALATE CRYSTALS,URINE MOD /hpf; COMMENT (UR) CULT NOT INDICATED; CULTURE IF INDICATED CULT NOT INDICATED; GLUCOSE,URINE NEG (NEG); HYALINE CAST, URINE 12 /lpf (RARE); KETONE, URINE NEG (NEG); MUCUS URINE FEW /lpf (OCC); NITRITE,URINE NEG (NEG); SQUAMOUS EPITHELIAL CELL URINE 11 /hpf (0-5); URINE COLOR YELLOW (YELLW/STRAW)
[2017-01-05 10:53] LABS: ALKALINE PHOSPHATASE 62 U/L (45-117); TOTAL BILIRUBIN ADULT 0.5 MG/DL (0.2-1.0)
[2017-01-05 10:59] LABS: ALT (GPT) 27 U/L (10-53); ANION GAP 12 MEQ/L (5-15); AST (GOT) 30 U/L (15-37); BICARBONATE 22.7 MEQ/L (21.0-32.0); BLOOD UREA NITROGEN 25 MG/DL (7-18); CHLORIDE 96 MEQ/L (98-107); GLOMERULAR FILTRATION RATE 27 ML/MIN (>89); POTASSIUM 5.3 MEQ/L (3.5-5.1); SODIUM (NA) 131 MEQ/L (136-145)
--- NOTE | 2017-01-05 11:01 | RADRPT ---
EXAM DATE/TIME: 01/05/2017 10:28 [place] COMPARISON: No previous studies available for comparison. INDICATIONS : Right side abdominal pain. MEDICAL HISTORY : Diabetes mellitus type II. Carcinoma, overian SURGICAL HISTORY : Appendectomy. Hysterectomy. ENCOUNTER: Initial ACUITY: 1 month PAIN SCORE: 7/10 LOCATION: Right Abdomen FINDINGS: Supine and upright views of the abdomen were performed. The abdominal bowel gas pattern is normal. No air fluid levels are seen. No abnormal masses, calcifications, or organomegaly is seen. The visu alized lower lungs are clear. No evidence of free intraperitoneal gas. The osseous structures are u nremarkable. CONCLUSION: Unremarkable exam. Jackson Cheng MD on January 05, 2017 at 10:59 Board Certified Radiologist. This report was verified electronically.
[2017-01-05] MEDS ORDERED: CYCL100C6 PO (11:06)
[2017-01-05] MEDS ORDERED: ZOFR4TAB3 SL (11:06)
[2017-01-05] MEDS ORDERED: BACTOIN EACH NARE (11:06)
[2017-01-05] MEDS ORDERED: CLOB0.055 TOPICAL (11:06)
[2017-01-05] MEDS ORDERED: BACT800T5 PO (11:06)
[2017-01-05] MEDS ORDERED: LEXA10TA PO (11:06)
[2017-01-05] MEDS ORDERED: MAGNESIUM HYDROXIDE SUSP 30 ML CUP PO PRN (11:30)
[2017-01-05] MEDS ORDERED: ACETAMINOPHEN 325 MG TAB PO PRN (11:30)
[2017-01-05] MEDS ORDERED: NALOXONE HCL 0.4 MG/ML AMP IV PRN (11:30)
[2017-01-05] MEDS ORDERED: ONDANSETRON HCL 4 MG/2 ML VIAL IVP PRN (11:30)
[2017-01-05] MEDS ORDERED: SODIUM CHLORIDE 0.9% FLUSH 10 ML FLUSH IV FLUSH PRN (11:30)
[2017-01-05] MEDS ORDERED: TEMAZEPAM 15 MG CAP PO PRN (11:30)
--- NOTE | 2017-01-05 11:32 | PD ---
HPI Chief Complaint: GI Complaint Time Seen by Provider: 09:53 Travel History International Travel<30 days: No Contact w/Intl Traveler<30days: No Traveled to known affect area: No History of Present Illness HPI Is a 56-year-old woman who presents to the emergency department complaining of nausea vomiting and constipation. She is a history of ovarian CA that was treated a couple years ago. 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 She's had trouble with intermittent nausea and vomiting for several months. She typically has trouble with diarrhea. Over the past couple days she hasn't really had any bowel movements. She feels dehydrated. She has abdominal pain as well. Previous abdominal surgery includes appendectomy and . 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 Chronic Pain due to herniated discs, as well as scoliosis Diabetes Anxiety Arthritis Hypertension Left Breast Mass Osteoporosis Polycystic ovarian disease Rheumatoid Arthritis Influenza Vaccination: Yes PNEUMOCCOCAL Vaccine (Year): 2 Menopausal: No : 1 Para: 1 Social History Alcohol Use: No Tobacco Use: No Allergies-Medications (Allergen,Severity, Reaction): Coded Allergies: Ciprofloxacin (Verified Allergy, Severe, Swelling, 01/05/17) SWELLING AND AGGITATION Penicillin (Verified Allergy, Severe, RASH, 01/05/17) Cleocin (Verified Allergy, Intermediate, FLU SX, 01/05/17) Plaquenil (Verified Allergy, Intermediate, FLU SX, 01/05/17) Gabapentin (Verified Allergy, Mild, Rash, 01/05/17) Macrobid (Verified Adverse Reaction, Severe, N&V, 01/05/17) Reported Meds & Prescriptions Reported Meds & Active Scripts Active Protonix (Pantoprazole Sodium) 40 Mg Tab 40 Mg PO DAILY Reported Zofran Odt (Ondansetron Odt) 4 Mg Tab 4 Mg SL Q8HR PRN Bactroban Nasal Oint (Mupirocin Nasal Oint) 2% Oint 1 Applic EACH NARE BID Bactrim DS (Sulfamethoxazole-Trimethoprim) 800-160 Mg Tab 1 Tab PO BID Cyclosporine 100 Mg Cap 100 Mg PO BID Lexapro (Escitalopram Oxalate) 10 Mg Tab 10 Mg PO DAILY Clobetasol Topical (Clobetasol Propionate) 0.05% Cream 1 Applic TOPICAL DAILY PRN Ievkpnbupm-Hdahwteoiuhhw-Atibgujy 50-300-40 Mg Cap 1 Cap PO DAILY PRN Do not exceed 6 capsules/day. Spironolactone 50 Mg Tab 50 Mg PO DAILY Propranolol (Propranolol HCl) 20 Mg Tab 20 Mg PO Q12HR Prednisone 5 Mg Tab 5 Mg PO DAILY Premarin (Estrogens Conjugated) 1.25 Mg Tab 1.25 Mg PO DAILY Rosuvastatin (Rosuvastatin Calcium) 5 Mg Tab 5 Mg PO DAILY Leflunomide 20 Mg Tab 20 Mg PO DAILY Aspirin Low Dose (Aspirin) 81 Mg Chew 81 Mg PO DAILY Metformin (Metformin HCl) 500 Mg Tab 500 Mg PO BIDPC With meals Lisinopril 10 Mg Tab 10 Mg PO DAILY Review of Systems Except as stated in HPI: all other systems reviewed are Neg Physical Exam Narrative GENERAL: 56 year-old woman, chronically ill-appearing. SKIN: Focused skin assessment warm/dry. She has several small wounds and multiple small scabbed pustule throughout her body. Small wounds on her buttock , several cesar on her right axilla, and one on the left breast. HEAD: Atraumatic. Normocephalic. EYES: Pupils equal and round. No scleral icterus. No injection or drainage. ENT: No nasal bleeding or discharge. Mucous membranes pink and moist. NECK: Trachea midline. No JVD. CARDIOVASCULAR: Regular rate and rhythm. No murmur appreciated. RESPIRATORY: No accessory muscle use. Clear to auscultation. Breath sounds equal bilaterally. GASTROINTESTINAL: Abdomen is flat and soft. Some mild diffuse tenderness. No rebound or guarding. MUSCULOSKELETAL: No obvious deformities. No edema. NEUROLOGICAL: Awake and alert. No obvious cranial nerve deficits. Motor grossly within normal limits. Normal speech. PSYCHIATRIC: Appropriate mood and affect; insight and judgment normal. Data Data Last Documented VS Vital Signs Date Time Temp Pulse Resp B/P Pulse Ox O2 Delivery O2 Flow Rate FiO2 01/05/17 09:22 97.8 114 16 114/68 98 Orders Complete Blood Count With Diff (01/05/17 10:08) Comprehensive Metabolic Panel (01/05/17 10:08) Abdomen, Flat & Upright (01/05/17 ) Urinalysis - C+S If Indicated (01/05/17 10:08) Lipase (01/05/17 10:08) Iv Access Insert/Monitor (01/05/17 10:08) Sodium Chlor 0.9% 1000 Ml Inj (Ns 1000 M (01/05/17 10:15) Ondansetron Inj (Zofran Inj) (01/05/17 10:15) Dicyclomine Inj (Bentyl Inj) (01/05/17 10:15) Place In Observation (01/05/17 ) Code Status (01/05/17 11:28) Vital Signs (Adult) Q4H (01/05/17 11:28) Activity Oob With Assistance (01/05/17 11:28) Diet Clear Liquid (01/05/17 Lunch) Sodium Chloride 0.9% Flush (Ns Flush) (01/05/17 11:30) Sodium Chloride 0.9% Flush (Ns Flush) (01/05/17 21:00) Acetaminophen (Tylenol) (01/05/17 11:30) Ondansetron Inj (Zofran Inj) (01/05/17 11:30) Magnesium Hydroxide Liq (Milk Of Magnesi (01/05/17 11:30) Temazepam (Restoril) (01/05/17 11:30) Basic Metabolic Panel (Bmp) (01/06/17 06:00) Complete Blood Count With Diff (01/06/17 06:00) Electrocardiogram (01/05/17 11:28) Pt Request For Service (01/05/17 11:28) Scd Bilateral/Knee High RAYA.BID (01/05/17 11:28) Naloxone Inj (Narcan Inj) (01/05/17 11:30) Sodium Chlor 0.9% 1000 Ml Inj (Ns 1000 M (01/05/17 11:30) Admit Order (Ed Use Only) (01/05/17 ) Labs Laboratory Tests Test 01/05/17 10:05 White Blood Count 3.4 TH/MM3 Red Blood Count 4.26 MIL/MM3 Hemoglobin 11.9 GM/DL Hematocrit 35.4 % Mean Corpuscular Volume 83.2 FL Mean Corpuscular Hemoglobin 27.9 PG Mean Corpuscular Hemoglobin 33.5 % Concent Red Cell Distribution Width 20.6 % Platelet Count 352 TH/MM3 Mean Platelet Volume 7.8 FL Neutrophils (%) (Auto) 39.8 % Lymphocytes (%) (Auto) 42.4 % Monocytes (%) (Auto) 13.1 % Eosinophils (%) (Auto) 4.2 % Basophils (%) (Auto) 0.5 % Neutrophils # (Auto) 1.4 TH/MM3 Lymphocytes # (Auto) 1.5 TH/MM3 Monocytes # (Auto) 0.4 TH/MM3 Eosinophils # (Auto) 0.1 TH/MM3 Basophils # (Auto) 0.0 TH/MM3 CBC Comment DIFF FINAL Differential Comment Urine Color YELLOW Urine Turbidity HAZY Urine pH 6.0 Urine Specific Cosby 1.028 Urine Protein TRACE mg/dL Urine Glucose (UA) NEG mg/dL Urine Ketones NEG mg/dL Urine Occult Blood NEG Urine Nitrite NEG Urine Bilirubin NEG Urine Urobilinogen LESS THAN 2.0 MG/DL Urine Leukocyte Esterase NEG Urine RBC LESS THAN 1 /hpf Urine WBC 1 /hpf Urine Squamous Epithelial 11 /hpf Cells Urine Calcium Oxalate Crystals MOD /hpf Urine Bacteria RARE /hpf Urine Hyaline Casts 12 /lpf Urine Mucus FEW /lpf Microscopic Urinalysis Comment CULT NOT INDICATED Sodium Level 131 MEQ/L Potassium Level 5.3 MEQ/L Chloride Level 96 MEQ/L Carbon Dioxide Level 22.7 MEQ/L Anion Gap 12 MEQ/L Blood Urea Nitrogen 25 MG/DL Creatinine 1.91 MG/DL Estimat Glomerular Filtration 27 ML/MIN Rate Random Glucose 168 MG/DL Calcium Level 9.2 MG/DL Total Bilirubin 0.5 MG/DL Aspartate Amino Transf 30 U/L (AST/SGOT) Alanine Aminotransferase 27 U/L (ALT/SGPT) Alkaline Phosphatase 62 U/L Total Protein 7.9 GM/DL Albumin 3.3 GM/DL Lipase 106 U/L [facility] Medical Decision Making Medical Screen Exam Complete: Yes Emergency Medical Condition: Yes Interpretation(s) LABS: CBC remarkable for white count of 3.4, absolute neutrophil count 1.4 CMP remarkable for mildly elevated potassium in the setting of slight hemolysis slightly elevated Lipase normal UA unremarkable Flat and upright abdominal x-ray unremarkable Differential Diagnosis Acute recurrent diarrhea, leukemia, infection, other Narrative Course Medical decision making Diagnosis Primary Impression: Dehydration Additional Impressions: Nausea & vomiting Acute kidney injury Samm Putnam MD Jan 05, 2017 11:32
[2017-01-05 11:57] VITALS: BP 137/66; PULSE 82; RESP 17; TEMP 99.4; O2SAT 98
[2017-01-05] MEDS: SODIUM CHLOR 0.9% 1000 ML INJ 1,000 ML IV SCH ×2 (12:24→23:36)
[2017-01-05 12:55] VITALS: BP 120/58; PULSE 95; RESP 20; TEMP 98.1; O2SAT 96
[2017-01-05] MEDS ORDERED: SOD PHOSPHATE/SOD BIPHOSPHATE (ADULT) ENEMA 133ML RECTAL PRN (14:00)
--- NOTE | 2017-01-05 14:24 | HHI.HP ---
HPI Service [facility] Hospitalists Primary Care Physician Maksim Vazquez Admission Diagnosis intractable vomiting, dehydration, acute kidney injury Chief Complaint: N/V Travel History International Travel<30 Days: No Contact w/Intl Traveler <30 Da: No Traveled to Known Affected Are: No History of Present Illness Ms. Vasquez is a 56 y/o WF with stage II ovarian cancer, T-granular lymphocyte leukemia, chronic neutropenia, RA (follows with Dr. Ulloa), diabetes, HTN and chronic pain. Pt takes Prednisone and Leflunomide for her RA. She had been off Cyclosporin for several months. Pt has been hospitalized several times for episodic intractable N/V/D. She reports that this has been occurring intermittently since she she had C. diff in 02/2016. Pt was last hospitalized with similar symptoms about 1 month ago. Pt presented to the ED at [facility] [place] on 01/05/17 with complaints of intermittent N/V, constipation and generalized weakness that began a few days ago. She reports that she has not had a BM in a 3 days. Denies any hematemesis or coffee-ground emesis. She tried using Zofran at home which did not help. Pt was recently seen by her PCP, Dr. Vazquez on 12/31 with complaints about a rash in bilateral axilla and she has noted several scabbed over lesions in both axilla and one on the left breast. Pt was prescribed Bactrim DS x 7 days and states that she had significant improvement while on the Bactrim. Pts labs at admission noted WBC count 3.4, K+ 5.3, Cr 1.91/GFR 27. Pt had a KUB in the ED which noted stool throughout the colon. Review of Systems Constitutional: DENIES: Fever, Weight loss, Chills Respiratory: DENIES: Cough, Shortness of breath Cardiovascular: DENIES: Chest pain, Palpitations Gastrointestinal: COMPLAINS OF: Constipation, Nausea, Vomiting Integumentary: COMPLAINS OF: Rash Neurologic: DENIES: Headache Psychiatric: DENIES: Confusion Past Family Social History Past Medical History Ovarian Cancer (Stage IIC, Grade 2 Serous adenocarcinoma of ovary) Chronic Pain due to herniated discs, as well as scoliosis Diabetes Anxiety Arthritis Hypertension Left Breast Mass Osteoporosis Polycystic ovarian disease Rheumatoid Arthritis Past Surgical History Caesarean section Hysterectomy - Excision Skin Tag Mons Pubis, laparoscopy w/ lysis of adhesions, RALVH, BSO, Resection large ovarian mass, intraperitoneal bx EGD (12/08/16) --> large hiatal hernia otherwise negative. Reported Medications Protonix (Pantoprazole Sodium) 40 Mg Tab 40 Mg PO DAILY Zofran Odt (Ondansetron Odt) 4 Mg Tab 4 Mg SL Q8HR PRN Bactroban Nasal Oint (Mupirocin Nasal Oint) 2% Oint 1 Applic EACH NARE BID Bactrim DS (Sulfamethoxazole-Trimethoprim) 800-160 Mg Tab 1 Tab PO BID Cyclosporine 100 Mg Cap 100 Mg PO BID Lexapro (Escitalopram Oxalate) 10 Mg Tab 10 Mg PO DAILY Clobetasol Topical (Clobetasol Propionate) 0.05% Cream 1 Applic TOPICAL DAILY PRN Cqdyhpftqq-Zyrivfmqquobd-Zalrzfjw 50-300-40 Mg Cap 1 Cap PO DAILY PRN Do not exceed 6 capsules/day. Spironolactone 50 Mg Tab 50 Mg PO DAILY Propranolol (Propranolol HCl) 20 Mg Tab 20 Mg PO Q12HR Prednisone 5 Mg Tab 5 Mg PO DAILY Premarin (Estrogens Conjugated) 1.25 Mg Tab 1.25 Mg PO DAILY Rosuvastatin (Rosuvastatin Calcium) 5 Mg Tab 5 Mg PO DAILY Leflunomide 20 Mg Tab 20 Mg PO DAILY Aspirin Low Dose (Aspirin) 81 Mg Chew 81 Mg PO DAILY Metformin (Metformin HCl) 500 Mg Tab 500 Mg PO DAILY With meals Lisinopril 10 Mg Tab 10 Mg PO DAILY Allergies: Coded Allergies: Ciprofloxacin (Verified Allergy, Severe, Swelling, 01/05/17) SWELLING AND AGGITATION Penicillin (Verified Allergy, Severe, RASH, 01/05/17) Cleocin (Verified Allergy, Intermediate, FLU SX, 01/05/17) Plaquenil (Verified Allergy, Intermediate, FLU SX, 01/05/17) Gabapentin (Verified Allergy, Mild, Rash, 01/05/17) Macrobid (Verified Adverse Reaction, Severe, N&V, 01/05/17) Family History Noncontributory Social History Hx of tobacco use, smoked for about 5 years, then quit when she was 24 Denies any alcohol use Pt raised in [place] Pt does not work currently Pt normally does some cooking and cleaning. Physical Exam Vital Signs Vital Signs Date Time Temp Pulse Resp B/P Pulse Ox O2 Delivery O2 Flow Rate FiO2 01/05/17 12:55 98.1 95 20 120/58 96 01/05/17 11:57 99.4 82 17 137/66 98 Room Air 01/05/17 09:22 97.8 114 16 114/68 98 Physical Exam GENERAL: This is a well-nourished, well-developed patient, in no apparent distress. SKIN: Pt with red striae on the abdomen. Healing pustular rash in axilla bilaterally and one lesion on the left breast HEENT: Atraumatic. Normocephalic. No temporal or scalp tenderness. No scleral icterus. Airway patent. NECK: Trachea midline, supple, nontender. CARDIO: Regular. RESP: CTA bilaterally. No wheezes, rales, or rhonchi. ABD: +BS, soft, nondistended, upper abdominal tenderness especially around her previous incisions. EXT: Extremities without clubbing, cyanosis, or edema. NEURO: Awake and alert. Motor and sensory grossly within normal limits. Normal speech. Laboratory Laboratory Tests Test 01/05/17 10:05 White Blood Count 3.4 Red Blood Count 4.26 Hemoglobin 11.9 Hematocrit 35.4 Mean Corpuscular Volume 83.2 Mean Corpuscular Hemoglobin 27.9 Mean Corpuscular Hemoglobin 33.5 Concent Red Cell Distribution Width 20.6 Platelet Count 352 Mean Platelet Volume 7.8 Neutrophils (%) (Auto) 39.8 Lymphocytes (%) (Auto) 42.4 Monocytes (%) (Auto) 13.1 Eosinophils (%) (Auto) 4.2 Basophils (%) (Auto) 0.5 Neutrophils # (Auto) 1.4 Lymphocytes # (Auto) 1.5 Monocytes # (Auto) 0.4 Eosinophils # (Auto) 0.1 Basophils # (Auto) 0.0 CBC Comment DIFF FINAL Differential Comment Urine Color YELLOW Urine Turbidity HAZY Urine pH 6.0 Urine Specific [place] 1.028 Urine Protein TRACE Urine Glucose (UA) NEG Urine Ketones NEG Urine Occult Blood NEG Urine Nitrite NEG Urine Bilirubin NEG Urine Urobilinogen LESS THAN 2.0 Urine Leukocyte Esterase NEG Urine RBC LESS THAN 1 Urine WBC 1 Urine Squamous Epithelial 11 Cells Urine Calcium Oxalate Crystals MOD Urine Bacteria RARE Urine Hyaline Casts 12 Urine Mucus FEW Microscopic Urinalysis Comment CULT NOT INDICATED Sodium Level 131 Potassium Level 5.3 Chloride Level 96 Carbon Dioxide Level 22.7 Anion Gap 12 Blood Urea Nitrogen 25 Creatinine 1.91 Estimat Glomerular Filtration 27 Rate Random Glucose 168 Calcium Level 9.2 Total Bilirubin 0.5 Aspartate Amino Transf 30 (AST/SGOT) Alanine Aminotransferase 27 (ALT/SGPT) Alkaline Phosphatase 62 Total Protein 7.9 Albumin 3.3 Lipase 106 Result Diagram: 01/05/17 1005 01/05/17 1005 Imaging Last Impressions Abdomen X-Ray 01/05/17 0000 Signed Impressions: Service Date/Time: Thursday, January 05, 2017 10:28 - CONCLUSION: Unremarkable exam. Jackson Cheng MD Septic Shock Reassessment Heart: Regular rate and rhythm Lungs: Clear Skin: Warm Assessment and Plan Problem List: (1) Nausea & vomiting Status: Acute Plan: - Pt has been having intermittent nausea/vomiting and previously was having diarrhea. She has been admitted several times in the last few months with these complaints. She reports that she has had issues with this on and off since 02/2016. - She has been unable to hold anything down for the last 3 days. - Pt actually complains more of constipation than previous diarrhea. She has not had a BM in a few days - KUB noted stool throughout the colon - Etiology for these episodes is unclear, possibly IBS vs. gastroenteritis vs. medication related vs. other. - pt had an EGD during her last admission which noted a large hiatal hernia otherwise negative. - Pt is notably dehydrated at admission with PIERRE, likely related to dehydration and possibly Bactrim - Give IVF - Fleet enema for constipation - Zofran PRN - Protonix 40mg po daily - Repeat labs in AM - Supportive care - DVT prophylaxis (2) Acute kidney injury Status: Acute Plan: - Labs at admission with Cr. 1.91 and GFR 27 - This is likely secondary to dehydration and/or Bactrim which she was prescribed for a skin rash on 12/31 - IVF - Monitor labs (3) Constipation Status: Acute Plan: - See above. (4) Skin rash Status: Acute Plan: - Pt with a noted healing pustular rash on bilateral axillae and was previously prescribed Bactrim DS BID on 12/31/16. She notes marked improvement in the lesions and erythema - Pt still with scabbed over lesions and some erythema in both axillae. - Resume Bactrim but renally dose - Monitor renal function closely. (5) Diabetes mellitus Status: Chronic Plan: - NovoLog SSI - Accu checks (6) Rheumatoid arthritis Status: Chronic Plan: - Home meds continued (7) Hypertension Status: Chronic Plan: - Home meds continued (8) Depression Status: Chronic Plan: - Home meds continued (9) Lymphocytic leukemia Status: Chronic Plan: - Pt has been off Cyclosporine since 09/2016. - She has been unable to followup with Dr. Will as an outpt since that admission. - She will need to arrange followup appt with Dr. Will upon discharge. Assessment and Plan Patient examined. Assessment and plan formulated with Janice Wilde PA-C. I agree with the above. Problem Qualifiers (1) Diabetes mellitus: Janice Wilde Jan 05, 2017 14:24 Thien Richardson DO January 16, 2017 11:08
[2017-01-05] MEDS ORDERED: SOD PHOSPHATE/SOD BIPHOSPHATE (ADULT) ENEMA 133ML RECTAL ONE (14:30)
[2017-01-05] MEDS: ACETAMINOPHEN/HYDROcodone 325 MG/5 MG TAB PO PRN (17:17)
[2017-01-05] MEDS: ALPRAZolam 0.25 MG TAB PO PRN (17:17)
[2017-01-05 19:59] VITALS: BP 140/64; PULSE 100; RESP 20; TEMP 98; O2SAT 99
[2017-01-05] MEDS: SODIUM CHLORIDE 0.9% FLUSH 10 ML FLUSH IV FLUSH SCH (20:21)
[2017-01-05] MEDS: SULFAMETHOXAZOLE-TRIMETHOPRIM 800-160 MG/20 ML UDC PO SCH (21:32)
[2017-01-05 22:15] VITALS: PULSE 100
[2017-01-06 04:33] VITALS: BP 159/71; PULSE 100; RESP 20; TEMP 97.8; O2SAT 97
[2017-01-06] MEDS: ACETAMINOPHEN/HYDROcodone 325 MG/5 MG TAB PO PRN (04:40)
[2017-01-06] MEDS: ALPRAZolam 0.25 MG TAB PO PRN (04:40)
[2017-01-06 08:00] VITALS: PULSE 91
[2017-01-06 08:01] VITALS: BP 128/65; PULSE 90; RESP 18; TEMP 97.3; O2SAT 95
[2017-01-06] MEDS ORDERED: ESTROGENS CONJUGATED 1.25 MG TAB PO SCH (09:00)
[2017-01-06] MEDS ORDERED: LEFLUNOMIDE 20 MG TAB PO SCH (09:00)
[2017-01-06] MEDS ORDERED: ASPIRIN 81 MG CHEW TAB PO SCH (09:00)
[2017-01-06] MEDS ORDERED: ATORVASTATIN 10 MG TAB PO SCH (09:00)
[2017-01-06] MEDS ORDERED: ESCITALOPRAM OXALATE 10 MG TAB PO SCH (09:00)
[2017-01-06] MEDS ORDERED: predniSONE 5 MG TAB PO SCH (09:00)
[2017-01-06] MEDS ORDERED: PANTOPRAZOLE SOD 40 MG DELAYED RELEASE TAB PO SCH (09:00)
[2017-01-06] MEDS: SODIUM CHLOR 0.9% 1000 ML INJ 1,000 ML IV SCH (10:35)
[2017-01-06] MEDS: SODIUM CHLORIDE 0.9% FLUSH 10 ML FLUSH IV FLUSH SCH ×2 (10:36→20:29)
--- NOTE | 2017-01-06 11:05 | EKG ---
Date Performed: 01/05/2017 Time Performed: 12:08:48 PTAGE: 56 years EKG: Sinus rhythm WITH OCCASIONAL SUPRAVENTRICULAR PREMATURE COMPLEXES BORDERLINE ECG Compared to prior tracing no sig nificant change DOCTOR: Lilia Guevara Interpretating Date/Time 01/06/2017 11:04:50
[2017-01-06 12:00] LABS: HEMATOCRIT 30.4 % (35.0-46.0); MEAN CELL VOLUME 84.7 FL (80.0-100.0); MEAN CORPUSCULAR HEMOGLOBIN 27.5 PG (27.0-34.0); MEAN CORPUSCULAR HGB CONC 32.5 % (32.0-36.0); PLATELET COUNT 224 TH/MM3 (150-450); RED BLOOD COUNT 3.59 MIL/MM3 (4.00-5.30); RED CELL DISTRIBUTION WIDTH 20.2 % (11.6-17.2); WHITE BLOOD COUNT 2.1 TH/MM3 (4.0-11.0)
[2017-01-06 12:03] LABS: HEMO FLAGS AUTO DIFF
[2017-01-06 12:33] VITALS: BP 149/66; PULSE 84; RESP 16; TEMP 97.6; O2SAT 97
[2017-01-06 12:45] LABS: BANDS 14 % (0-6); EOSINOPHILS 4 % (0-4); NEUTROPHIL # MANUAL DIFF 0.6 TH/MM3 (1.8-7.7); PLATELET ESTIMATE SMEAR NORMAL (NORMAL); PLATELET MORPHOLOGY NORMAL (NORMAL); POLYS (SEG NEUTROPHILS) 16 % (16-70); SCAN/DIFF FINAL DIFF MANUAL; WBC DIFF SAMPLE 100
[2017-01-06 12:48] LABS: BICARBONATE 24.3 MEQ/L (21.0-32.0); POTASSIUM 3.9 MEQ/L (3.5-5.1)
[2017-01-06] MEDS ORDERED: BACT800T5 PO (15:11)
--- NOTE | 2017-01-06 15:24 | HHI.DCPOC ---
Discharge Care Plan Diagnosis: (1) Nausea & vomiting (2) Acute kidney injury (3) Dehydration (4) Diabetes mellitus (5) Lymphocytic leukemia (6) Constipation Goals to Promote Your Health - Pt is to continue to eat and drink plenty of fluids to keep hydrated. - Pt is to complete the remaining 5 days of her previous bactrim prescription that she has at home - Pt is to followup with her PCP in 1 week. Directions to Meet Your Goals Take your medications as prescribed Follow your dietary instruction Follow activity as directed Keep your appointments as scheduled Take your immunizations and boosters as scheduled If your symptoms worsen call your PCP, if no PCP go to Urgent Care Center or Emergency Room Smoking is Dangerous to Your Health. Avoid second hand smoke Call the 24-hour hour crisis hotline for domestic abuse at Janice Wilde Jan 06, 2017 15:24 Thien Richardson DO January 16, 2017 11:08
--- NOTE | 2017-01-06 15:30 | HHI.PR ---
Subjective Remarks Pt reports that she is feeling much better today. She had a BM Pt is tolerating liquid diet and wants regular diet. Afebrile. Renal function is improved. Objective Vitals Vital Signs Date Time Temp Pulse Resp B/P Pulse Ox O2 Delivery O2 Flow Rate FiO2 01/06/17 12:33 97.6 84 16 149/66 97 01/06/17 08:01 97.3 90 18 128/65 95 01/06/17 08:00 91 01/06/17 05:50 18 01/06/17 04:33 97.8 100 20 159/71 97 01/05/17 22:15 100 01/05/17 19:59 98.0 100 20 140/64 99 01/05/17 01/05/17 01/06/17 15:00 23:00 07:00 # Voids 1 2 # Bowel Movements 1 Result Diagram: 01/06/17 1058 01/06/17 1058 Other Results Laboratory Tests Test 01/05/17 01/06/17 10:05 10:58 White Blood Count 3.4 TH/MM3 2.1 TH/MM3 Red Blood Count 4.26 MIL/MM3 3.59 MIL/MM3 Hemoglobin 11.9 GM/DL 9.9 GM/DL Hematocrit 35.4 % 30.4 % Mean Corpuscular Volume 83.2 FL 84.7 FL Mean Corpuscular Hemoglobin 27.9 PG 27.5 PG Mean Corpuscular Hemoglobin 33.5 % 32.5 % Concent Red Cell Distribution Width 20.6 % 20.2 % Platelet Count 352 TH/MM3 224 TH/MM3 Mean Platelet Volume 7.8 FL 7.3 FL Neutrophils (%) (Auto) 39.8 % % Lymphocytes (%) (Auto) 42.4 % % Monocytes (%) (Auto) 13.1 % % Eosinophils (%) (Auto) 4.2 % % Basophils (%) (Auto) 0.5 % % Neutrophils # (Auto) 1.4 TH/MM3 TH/MM3 Lymphocytes # (Auto) 1.5 TH/MM3 TH/MM3 Monocytes # (Auto) 0.4 TH/MM3 TH/MM3 Eosinophils # (Auto) 0.1 TH/MM3 TH/MM3 Basophils # (Auto) 0.0 TH/MM3 TH/MM3 CBC Comment DIFF FINAL AUTO DIFF Differential Comment FINAL DIFF MANUAL Urine Color YELLOW Urine Turbidity HAZY Urine pH 6.0 Urine Specific [place] 1.028 Urine Protein TRACE mg/dL Urine Glucose (UA) NEG mg/dL Urine Ketones NEG mg/dL Urine Occult Blood NEG Urine Nitrite NEG Urine Bilirubin NEG Urine Urobilinogen LESS THAN 2.0 MG/DL Urine Leukocyte Esterase NEG Urine RBC LESS THAN 1 /hpf Urine WBC 1 /hpf Urine Squamous Epithelial 11 /hpf Cells Urine Calcium Oxalate Crystals MOD /hpf Urine Bacteria RARE /hpf Urine Hyaline Casts 12 /lpf Urine Mucus FEW /lpf Microscopic Urinalysis Comment CULT NOT INDICATED Sodium Level 131 MEQ/L 136 MEQ/L Potassium Level 5.3 MEQ/L 3.9 MEQ/L Chloride Level 96 MEQ/L 103 MEQ/L Carbon Dioxide Level 22.7 MEQ/L 24.3 MEQ/L Anion Gap 12 MEQ/L 9 MEQ/L Blood Urea Nitrogen 25 MG/DL 13 MG/DL Creatinine 1.91 MG/DL 1.09 MG/DL Estimat Glomerular Filtration 27 ML/MIN 52 ML/MIN Rate Random Glucose 168 MG/DL 109 MG/DL Calcium Level 9.2 MG/DL 7.9 MG/DL Total Bilirubin 0.5 MG/DL Aspartate Amino Transf 30 U/L (AST/SGOT) Alanine Aminotransferase 27 U/L (ALT/SGPT) Alkaline Phosphatase 62 U/L Total Protein 7.9 GM/DL Albumin 3.3 GM/DL Lipase 106 U/L Differential Total Cells 100 Counted Neutrophils % (Manual) 16 % Band Neutrophils % 14 % Lymphocytes % 57 % Monocytes % 9 % Eosinophils % 4 % Neutrophils # (Manual) 0.6 TH/MM3 Platelet Estimate NORMAL Platelet Morphology Comment NORMAL Imaging Last Impressions Abdomen X-Ray 01/05/17 0000 Signed Impressions: Service Date/Time: Thursday, January 05, 2017 10:28 - CONCLUSION: Unremarkable exam. Jackson Cheng MD Objective Remarks General: NAD, AAOx3 Chest: CTA Cardiac: Regular Abd: +Bs, soft ND/NT Ext: No edema A/P Problem List: (1) Nausea & vomiting Status: Acute Plan: - Pt has been having intermittent nausea/vomiting and previously was having diarrhea. She has been admitted several times in the last few months with these complaints. She reports that she has had issues with this on and off since 02/2016. - She was unable to hold anything down for the last 3 days prior to admission. - Pt actually complains more of constipation than previous diarrhea. She had not had a BM in a few days - KUB noted stool throughout the colon - Etiology for these episodes is unclear, possibly IBS vs. gastroenteritis vs. medication related vs. other. - pt had an EGD during her last admission which noted a large hiatal hernia otherwise negative. - Pt is notably dehydrated at admission with PIERRE, likely related to dehydration and possibly Bactrim - Pt received IVF and renal function improved. - She did have a BM after Fleet enema - Pt has been tolerating liquids and wants a regular diet. - Advance diet this afternoon and if tolerating regular food pt can be discharged to home. - Zofran PRN - Protonix 40mg po daily - Pt will need to followup with her PCP in 1 week. (2) Acute kidney injury Status: Acute Plan: - Labs at admission with Cr. 1.91 and GFR 27 - This is likely secondary to dehydration and/or Bactrim which she was prescribed for a skin rash on 12/31 - Labs improved with IVF, Cr 1.09 today - Pt tolerating liquids and we will advance diet. (3) Constipation Status: Acute Plan: - See above. (4) Skin rash Status: Acute Plan: - Pt with a noted healing pustular rash on bilateral axillae and was previously prescribed Bactrim DS BID on 12/31/16. She notes marked improvement in the lesions and erythema - Pt still with scabbed over lesions and some erythema in both axillae. - Pt was resumed on Bactrim but renally dose - Renal function has improved. - Pt is to complete her prescription for Bactrim upon discharge. - Pt is to continue to eat and drink plenty of fluids upon discharge to home. - She will followup with her PCP in 1 week and may need repeat BMP at that time. (5) Diabetes mellitus Status: Chronic Plan: - Resume home meds at discharge (6) Rheumatoid arthritis Status: Chronic Plan: - Home meds continued (7) Hypertension Status: Chronic Plan: - Home meds continued (8) Depression Status: Chronic Plan: - Home meds continued (9) Lymphocytic leukemia Status: Chronic Plan: - Pt has been off Cyclosporine since 09/2016. - She has been unable to followup with Dr. Will as an outpt since that admission. - She will need to arrange followup appt with Dr. Will upon discharge. Assessment and Plan Patient examined. Assessment and plan formulated with Janice Wilde PA-C. I agree with the above. Problem Qualifiers (1) Diabetes mellitus: Janice Wilde Jan 06, 2017 15:30 Thien Richardson DO January 16, 2017 11:07
[2017-01-06 16:30] VITALS: BP 112/50; PULSE 75; RESP 14; TEMP 97.6; O2SAT 97
[2017-01-06 19:37] VITALS: BP 112/59; PULSE 80; RESP 18; TEMP 98.1; O2SAT 96
[2017-01-06] MEDS: SULFAMETHOXAZOLE-TRIMETHOPRIM 800-160 MG/20 ML UDC PO SCH (20:29)
== END 2017-01-06 20:44 | disposition home or self-care (01) ==
LOC: NEPE 09:20 → NEDA 11:33 → NEPGCP 12:42
PROVIDERS: ADMIT Hospitalist; ATTEND Hospitalist
DX: R11.2 Nausea with vomiting, unspecified (principal); E86.0 Dehydration; N17.9 Acute kidney failure, unspecified; K59.00 Constipation, unspecified; Z85.43 Personal history of malignant neoplasm of ovary; D70.9 Neutropenia, unspecified; C91.90 Lymphoid leukemia, unspecified not having achieved remission; R10.9 Unspecified abdominal pain; M41.9 Scoliosis, unspecified; G89.29 Other chronic pain; E11.9 Type 2 diabetes mellitus without complications; F41.9 Anxiety disorder, unspecified; M19.90 Unspecified osteoarthritis, unspecified site; I10 Essential (primary) hypertension; M81.0 Age-related osteoporosis without current pathological fracture; E28.2 Polycystic ovarian syndrome; M06.9 Rheumatoid arthritis, unspecified; Z79.899 Other long term (current) drug therapy; Z79.84 Long term (current) use of oral hypoglycemic drugs; R21 Rash and other nonspecific skin eruption; F32.9 Major depressive disorder, single episode, unspecified; R94.31 Abnormal electrocardiogram [ECG] [EKG]
CPT/HCPCS: 74020; 80048; 80053; 81001; 82948; 83690; 85007; 85025; 85027; 93005; 96361; 96372; 96374; 97162; 99285; G0378; G8987; G8988; J0500; J2405; J7030; J7512

== ENCOUNTER 2017-02-05 07:38 | Day surgery (SDC) | payer OTHER ==
[~2017-02-05] VITALS: Ht 175.3 cm; Wt 68.2 kg
[~2017-02-05 07:38] MED LIST changes: -ALPR.5 PO; +BACT800T5 PO; +BACTOIN EACH NARE; +CLOB0.055 TOPICAL; +LEXA10TA PO; -WALKER WHEELS/F1 MIS; +ZOFR4TAB3 SL
[2017-02-05 07:58] VITALS: BP 141/78; PULSE 96; RESP 20; TEMP 98.3; O2SAT 96
[2017-02-05] MEDS ORDERED: KETO2CRE TOPICAL (08:27)
[2017-02-05] MEDS ORDERED: LIDO0.1O (08:27)
[2017-02-05] MEDS ORDERED: ONE-TAB14 (08:27)
[2017-02-05] MEDS ORDERED: DOCU1CAP21 (08:27)
[2017-02-05] MEDS ORDERED: ZANT150T2 PO (08:27)
[2017-02-05] MEDS ORDERED: LIDOCAINE HCL 1% 20 ML VIAL ONE (08:37)
[2017-02-05] MEDS ORDERED: SODIUM CHLOR 0.9% 1000 ML IV SCH (09:00)
[2017-02-05] MEDS ORDERED: MIDAZOLAM HCL 5 MG/5 ML VIAL ONE (09:09)
[2017-02-05] MEDS ORDERED: fentaNYL CITRATE 250 MCG/5 ML AMP ONE (09:09)
[2017-02-05 09:55] VITALS: BP 106/58; PULSE 89; RESP 20; TEMP 98; O2SAT 94
[2017-02-05 10:10] VITALS: BP_SYST 106; BP_SYST 110; BP_DIAS 57; BP_DIAS 58; PULSE 83; PULSE 89; RESP 20; TEMP 98; O2SAT 94; O2SAT 98
[2017-02-05 10:39] LABS: BONE MARROW PROCESSING COMPLETE; IRON STAIN DONE; JENNER GIEMSA STAIN DONE
[2017-02-05 10:40] VITALS: BP 108/50; PULSE 83; RESP 20; O2SAT 96
[2017-02-05] MEDS ORDERED: oxyCODONE/ACETAMINOPHEN 5 MG/325 MG TAB PO PRN (11:00)
[2017-02-05 11:10] VITALS: BP 108/50; PULSE 84; RESP 20; O2SAT 99
[2017-02-05 11:26] LABS: AUTOMATED NEUTROPHIL # 0.2 TH/MM3 (1.8-7.7); BASOPHIL % 0.3 % (0.0-2.0); EOSINOPHIL # 0.1 TH/MM3 (0-0.4); EOSINOPHIL % 6.4 % (0.0-4.0); HEMATOCRIT 27.8 % (35.0-46.0); LYMPH % 76.8 % (9.0-44.0); LYMPHOCYTE # 1.8 TH/MM3 (1.0-4.8); MEAN CELL VOLUME 89.7 FL (80.0-100.0); MEAN CORPUSCULAR HGB CONC 32.3 % (32.0-36.0); MONO % 8.2 % (0.0-8.0); NEUT % 8.3 % (16.0-70.0); PLATELET COUNT 166 TH/MM3 (150-450); RED CELL DISTRIBUTION WIDTH 20.4 % (11.6-17.2); WHITE BLOOD COUNT 2.3 TH/MM3 (4.0-11.0)
[2017-02-05 11:31] LABS: HEMO FLAGS AUTO DIFF
[2017-02-05 12:12] LABS: BANDS 3 % (0-6); EOSINOPHILS 5 % (0-4); POLYS (SEG NEUTROPHILS) 4 % (16-70); WBC DIFF SAMPLE 100
[2017-02-05 12:13] LABS: OVALOCYTES 1+ (NORMAL); PLATELET ESTIMATE SMEAR NORMAL (NORMAL); PLATELET MORPHOLOGY NORMAL (NORMAL); SCAN/DIFF FINAL DIFF MANUAL
[2017-02-05 12:16] LABS: NEUTROPHIL # MANUAL DIFF 0.2 TH/MM3 (1.8-7.7)
--- NOTE | 2017-02-05 15:32 | RADRPT ---
EXAM DATE/TIME: 02/05/2017 09:20 [place] COMPARISON: No previous studies available for comparison. INDICATIONS : Leukemia. SEDATION TIME: 30 minutes BIOPSY SITE: Right iliac MEDICATION(S): 1.) 3 mg midazolam (Versed) IV 2.) 150 mcg fentanyl (Sublimaze) IV DEVICE(S): 1.) 11 gauge Bone marrow biopsy needle MEDICAL HISTORY : Leukemia. Ovarian cancer SURGICAL HISTORY : None. ENCOUNTER: Initial ACUITY: 1 day PAIN SCORE: 0/10 LOCATION: pelvis A total of one core specimen(s) were obtained and sent to the laboratory for pathologic evaluation. PROCEDURE: 1. CT guided bone marrow biopsy. 2. Conscious sedation with continuous EKG and oximetry monitoring. Prior to the procedure informed consent was obtained. Any appropriate prior imaging studies were rev iewed. Using automated exposure control and adjustment of the mA and/or kV according to patient size , radiation dose was kept as low as reasonably achievable to obtain optimal diagnostic quality images . The site was prepped in a sterile fashion. Full sterile technique was used, including cap, mask, elaine rile gloves and gown and a large sterile sheet. Hand hygiene and 2% chlorhexidine and/or betadine/al cohol prep was utilized per protocol for cutaneous antisepsis. The skin and subcutaneous tissues wer e infiltrated with local anesthetic solution. With CT guidance the previously identified target was localized. Biopsy was performed using the presc ribed needle as above. Following biopsy marrow aspiration was performed with repeat puncture. [place] te hemostasis was obtained with compression at the puncture site. Follow-up CT scan reveals no hemorrhage. Conscious sedation was performed with the prescribed dosages and duration as above in the presence of an independent trained radiology nurse to assist in the monitoring of the patient. EKG and oximetry remained stable throughout the procedure. The patient tolerated the procedure well and there were no complications. The patient was sent to Radiology Outpatient Unit in stable condition. CONCLUSION: 1. Uncomplicated CT guided bone marrow aspirate. 2. Uncomplicated CT guided bone marrow biopsy. Stephan Maravilla MD on February 05, 2017 at 15:30 Board Certified Radiologist. This report was verified electronically.
== END 2017-02-05 12:00 | disposition home or self-care (01) ==
LOC: HRAD 07:38 → HRIP 07:42 → HRAD 12:00
PROVIDERS: ATTEND Internal Medicine
DX: C95.90 Leukemia, unspecified not having achieved remission (principal)
CPT/HCPCS: 38221; 77012; 85007; 85027; 85097; 88305; 88311; 88313; 99152; 99153; C1830; G0364; J2250; J3010; J7030

== ENCOUNTER 2018-07-17 19:16 | Inpatient (IN) ==
[2018-07-17] MEDS ORDERED: Morphine Sulfate Inj 2 MG/ML Vial IV.PUSH ONE (19:40)
[2018-07-17] MEDS ORDERED: Sod Chloride 0.9% Inj 1,000 ML IV.SIG ONE ×2 (19:40→21:17)
--- NOTE | 2018-07-17 19:48 | ED ---
HPI General Chief complaint: Weakness Stated complaint: Patient states body pain Time Seen by Provider: 07/17/18 19:28 Source: patient, family, RN notes reviewed and old records reviewed Mode of arrival: wheelchair Limitations: no limitations History of Present Illness HPI Narrative: 57-year-old female presents to the emergency department for evaluation of generalized weakness, generalized pain, dizziness, vomiting, diarrhea. Patient states her symptoms have been ongoing for 12 days and have been worsening. Patient reports history of diabetes, leukemia. She currently follows with Dr. Harris. She reports chronic skin infections, but denies any infection at this time. Patient denies any fevers or chills. She does report some shortness of breath. She also reports chest pain, but states it is the pain that she has everywhere. She reports 2 episodes of vomiting and 2 episodes of diarrhea today. She denies any blood in her stool. Her boyfriend at bedside also contributes to history. The patient states she does not know if she has had any syncopal episodes, but the patient's boyfriend denies syncopal episodes. Moderate severity. MD Complaint: Reports generalized weakness and lack of energy Onset (ago): day(s) (12) Duration: progressively worsening Location: Reports generalized Severity: moderate Severity scale (1-10): 10 Quality: Reports aching Relieving factors: none Exacerbating factors: none Context: Denies history of similar Associated symptoms: Reports chest pain, nausea/vomiting, myalgias, shortness of breath and syncope; Denies confusion, dark stools, diaphoresis, dysuria, easy bruising, fever/chills, headaches, loss of appetite and rash Related Data Home Medications Medication Instructions Recorded Confirmed alprazolam [Xanax] 1 mg PO TID 06/29/18 07/17/18 citalopram 20 mg PO DAILY 06/29/18 07/17/18 hydrocodone-acetaminophen [[place]] 1 tab PO Q4-6H PRN 06/29/18 07/17/18 levetiracetam [Keppra] 500 mg PO TID 06/29/18 07/17/18 nifedipine 30 mg PO DAILY 06/29/18 07/17/18 ondansetron HCl [Zofran] 4 mg PO BID PRN 06/29/18 07/17/18 pantoprazole [Protonix] 20 mg PO DAILY 06/29/18 07/17/18 propranolol 20 mg PO BID 06/29/18 07/17/18 spironolactone 25 mg PO DAILY 06/29/18 07/17/18 Allergies Allergy/AdvReac Type Severity Reaction Status Date / Time ciprofloxacin Allergy Severe Swelling Verified 07/17/18 20:16 penicillin G Allergy Severe RASH Verified 07/17/18 20:16 clindamycin Allergy Intermediate FLU SX Verified 07/17/18 20:16 hydroxychloroquine Allergy Intermediate FLU SX Verified 07/17/18 20:16 gabapentin Allergy Mild Rash Verified 07/17/18 20:16 nitrofurantoin AdvReac Severe N&V Verified 07/17/18 20:16 Review of Systems ROS: all other systems reviewed are negative PMFSH Social History Social History Substance History: Active Abuse Second Hand Smoke Exposure: Yes Smoking Status: Former smoker Tobacco Type: Cigarettes How Often Do You Have a Drink Containing Alcohol: Never Recent Travel in [place] within the Last 8 Weeks: No Recent Out of Country Travel within the Last 8 Weeks: No Immunization History Tetanus Immunization: Unsure Exam Narrative Exam Narrative: GENERAL: Well-nourished, well-developed female patient, afebrile SKIN: Focused skin assessment warm/dry. Patient has scaly rash to right breast consistent with eczema HEAD: Normocephalic. Atraumatic EYES: No scleral icterus. No injection or drainage. NECK: Supple, trachea midline. No JVD or lymphadenopathy. CARDIOVASCULAR: Regular rhythm without murmurs, gallops, or rubs. Patient is tachycardic. Bilateral radial and pedal pulses are 2+ RESPIRATORY: Breath sounds equal bilaterally. No accessory muscle use. Lung sounds are clear to auscultation GASTROINTESTINAL: Abdomen soft, non-tender, nondistended. MUSCULOSKELETAL: No cyanosis, or edema. Bilateral upper and lower extremity strength 4/5 BACK: Nontender without obvious deformity. No CVA tenderness. RECTAL EXAM: No masses or tenderness, stool is brown. Hemoccult is negative. This exam was done with RN at bedside Procedures Hemaprompt Stool Procedural Steps Taken: specimen placed in appropriate test area, developer placed on specimen and control areas and controls appropriately positive and negative Hemaprompt Stool Result: negative Course Initial Documented Vital Signs Temperature 98.8 F 07/17/18 19:19 Pulse Rate 131 H 07/17/18 19:19 Respiratory Rate 18 07/17/18 19:19 Blood Pressure 148/76 H 07/17/18 19:19 Pulse Oximetry 98 07/17/18 19:19 Last Documented Vital Signs Temperature 98.2 F 07/18/18 00:00 Pulse Rate 94 H 07/18/18 00:00 Respiratory Rate 16 07/18/18 00:00 Blood Pressure 148/68 H 07/18/18 00:00 Pulse Oximetry 95 07/18/18 00:00 Medical Decision Making DEVIKA Attestation DEVIKA supervised visit: Yes Attestation: I, Dr. Cam, have reviewed the advance practice practitioner's documentation and am in agreement, met with the patient face to face, made the diagnosis, and the medical decision making was done by me. The patient was initially evaluated by Tova, the DEVIKA. Please see their complete history and physical. *My assessment and Findings: The patient presents with a history of reportedly feeling unwell for the last 12 days. The patient reports recently having nausea , vomiting, and diarrhea. She reports that she has had diarrhea twice a day. She reports that the stool is yellow in color and has had some mucus in it. She reports that she was on antibiotic a few weeks ago, Bactrim for a urinary tract infection. The patient also reports that a few weeks ago she was on prednisone reportedly related to a rheumatoid arthritis exacerbation. The patient's examination is remarkable for sinus tachycardia. During the course of the patient's emergency department visit, the patient's history, examination, and differential diagnosis were reviewed with the patient. The patient was placed on a cardiac monitor technician with oximetry and frequent blood pressure monitoring. The patient had IV access obtained and blood work sent for analysis. The patient was initially provided morphine 4 mg IV, Zofran 4 mg IV, normal saline a 1 L bolus. The patient's diagnostic studies were reviewed and remarkable for a white count of 3.1 in a patient who has had leukopenia in the past, hemoglobin 7.6 in a patient with a baseline hemoglobin between 9 and 10, MCV is low at 69.4, platelets 166, lymphocytosis of 50.5, monocytes 10.3. D-dimer is elevated at 1.94, CTA to rule out PE was ordered. PT 10, INR 1.0, chemistry is remarkable for potassium 3.3, GFR 72, glucose 253 with a protein corrected calcium of 8.1, lactic acid is 2.9. A second liter of normal saline IV fluids will be administered. Initial set of cardiac enzymes are within normal limits. Magnesium is 1.2 which was supplemented IV. Urinalysis shows 100 protein trace ketones 2.[address] scan of the brain showed no acute abnormality. CTA to rule out pulmonary embolism showed no evidence of pulmonary embolism, mild bilateral atelectasis, no significant change of a subcentimeter nodule of the left lower lobe is felt to be benign, coronary artery calcifications are noted. CT of the abdomen and pelvis reveals no obstruction or acute inflammatory changes, however there is an apparent nonobstructing DVT involving the left femoral vein. An ultrasound of the left lower extremity was ordered to further evaluate. The patient's results were discussed with the patient, including the plan of care. I explained that further testing and/ or monitoring is indicated based on the patient's history, examination, and/ or laboratory findings. Therefore, I recommended admission for additional evaluation. The patient expressed understanding and was agreeable with this plan. The patient was admitted to the hospital in guarded condition and sent to a bed under the care of [facility] hospitalist's service. MDM Narrative Medical decision making narrative: 57-year-old female presents to the emergency department for evaluation of generalized weakness, dizziness, generalized body pain with vomiting and diarrhea. IV access is obtained. EKG, CBC, CMP, TSH, lactic acid, magnesium, CK, troponin, PTT, PT/INR, d-dimer, UA are ordered and pending. Chest x-ray, CT of the brain are ordered and pending. Patient is given normal saline 1 L IV bolus, morphine 4 mg IV, Zofran 4 mg IV. CBC shows leukopenia of 3.1, anemia with a hgb of 7.6, decreased from previous hgb of 9.7, neutrophils 1.1. CMP shows hypokalemia of 3.3, hyperglycemia of 253. TSH is 0.301. Magnesium is 1.2. CK is 25. Troponin is 0.03. Lactic acid is 2.9. PT/INR is 10.0/1.0. D-dimer is 1.94. UA is negative for acute infection. Chest x-ray shows no acute cardiopulmonary disease. CT of the brain is negative. CTA pulmonary is ordered due to elevated d-dimer and shows No pulmonary embolus; Mild bilateral atelectasis; No significant change subcentimeter nodule of the left lower lobe, felt to be benign; Coronary artery calcification. CT abdomen/pelvis is ordered and shows No obstruction or acute inflammatory changes are seen in the abdomen or pelvis; There is apparent nonobstructing DVT involving the visualized left femoral artery. Bilateral lower extremity venous duplex Doppler recommended; An apparent cyst of the left vulva/vagina only partly seen; No evidence of metastatic disease or recurrent tumor; Enlarged and fatty infiltrated liver; Small hiatal hernia. Venous doppler US is ordered and pending. Patient is given 2nd L NS IV bolus, magnesium 1 gm IV. Patient will be admitted for generalize weakness, lactic acidosis Medical Screen Exam Complete: Yes Emergency Medical Condition: Yes Differential Diagnosis Differential Diagnosis: Metabolic derangement versus rhabdomyolysis versus ACS versus dehydration versus sepsis Medical Records Medical records reviewed: Yes I reviewed the patient's medical records. Lab Data Result diagrams: 07/17/18 19:53 07/17/18 19:53 Lab Results 07/17/18 07/17/18 07/17/18 Range/Units 19:53 19:53 19:53 WBC 3.1 L (4.0-11.0) th/mm3 RBC 3.50 L (4.00-5.30) mil/mm3 Hgb 7.6 L (11.6-15.3) gm/dL Hct 24.3 L (35.0-46.0) % MCV 69.4 L (80.0-100.0) fL MCH 21.8 L (27.0-34.0) pg MCHC 31.4 L (32.0-36.0) % RDW 23.6 H (11.6-17.2) % Plt Count 466 H (150-450) th/mm3 MPV 6.6 L (7.0-11.0) fL Neut % (Auto) 37.1 (16.0-70.0) % Lymph % (Auto) 50.5 H (9.0-44.0) % [place] % (Auto) 10.3 H (0.0-8.0) % Eos % (Auto) 1.8 (0.0-4.0) % Baso % (Auto) 0.3 (0.0-2.0) % Neut # (Auto) 1.1 L (1.8-7.7) th/mm3 Lymph # (Auto) 1.6 (1.0-4.8) th/mm3 [place] # (Auto) 0.3 (0.0-0.9) th/mm3 Eos # (Auto) 0.1 (0.0-0.4) th/mm3 Baso # (Auto) 0.0 (0.0-0.2) th/mm3 WBC Differential . Differential Comment Auto diff final PT 10.0 (9.8-11.6) sec INR 1.0 Ratio D-Dimer Quant (PE/DVT) 1.94 H (0.00-0.50) mg/L FEU Sodium 141 (136-145) meq/L Potassium 3.3 L (3.5-5.1) meq/L Chloride 106 (98-107) meq/L Carbon Dioxide 26.0 (21.0-32.0) meq/L Anion Gap 9 (5-15) meq/L BUN 12 (7-18) mg/dL Creatinine 0.82 (0.50-1.00) mg/dL Estimated GFR 72 L (>89) mL/min POC Glucose (68-110) mg/dl Random Glucose 253 H (74-106) mg/dL Lactic Acid (0.4-2.0) mmol/L Calcium 7.4 L* (8.5-10.1) mg/dL Prot Corrected Calcium 8.1 L (8.5-10.1) mg/dL Magnesium 1.2 L (1.5-2.5) mg/dL Total Bilirubin 0.1 L (0.2-1.0) mg/dL AST 13 L (15-37) U/L ALT 11 (10-53) U/L Alkaline Phosphatase 111 (45-117) U/L Total Creatine Kinase 25 L (26-192) U/L Troponin I 0.03 (0.02-0.05) ng/mL Total Protein 5.8 L (6.4-8.2) g/dL Albumin 2.2 L (3.4-5.0) g/dL TSH (0.358-3.740) uIU/mL Urine Color (Yellw/Straw) Urine Clarity (Clear) Urine pH (5.0-8.5) Ur Specific [place] (1.002-1.035) Urine Protein (Neg-Trace) mg/dL Urine Glucose (UA) (Negative) mg/dL Urine Ketones (Negative) mg/dL Urine Occult Blood (Negative) Urine Nitrate (Negative) Urine Bilirubin (Negative) Urine Urobilinogen (Less than 2) mg/dL Ur Leukocyte Esterase (Negative) Urine RBC (0-3) /hpf Urine WBC (0-5) /hpf Ur Squamous Epith Cells (0-5) /hpf Urine Mucus (Occasional) /lpf Micro UA Comment Ur Microscopic Review Urine Culture Comments Blood Type Antibody Screen 07/17/18 07/17/18 07/17/18 Range/Units 19:53 19:53 19:53 WBC (4.0-11.0) th/mm3 RBC (4.00-5.30) mil/mm3 Hgb (11.6-15.3) gm/dL Hct (35.0-46.0) % MCV (80.0-100.0) fL MCH (27.0-34.0) pg MCHC (32.0-36.0) % RDW (11.6-17.2) % Plt Count (150-450) th/mm3 MPV (7.0-11.0) fL Neut % (Auto) (16.0-70.0) % Lymph % (Auto) (9.0-44.0) % [place] % (Auto) (0.0-8.0) % Eos % (Auto) (0.0-4.0) % Baso % (Auto) (0.0-2.0) % Neut # (Auto) (1.8-7.7) th/mm3 Lymph # (Auto) (1.0-4.8) th/mm3 [place] # (Auto) (0.0-0.9) th/mm3 Eos # (Auto) (0.0-0.4) th/mm3 Baso # (Auto) (0.0-0.2) th/mm3 WBC Differential Differential Comment PT (9.8-11.6) sec INR Ratio D-Dimer Quant (PE/DVT) (0.00-0.50) mg/L FEU Sodium (136-145) meq/L Potassium (3.5-5.1) meq/L Chloride (98-107) meq/L Carbon Dioxide (21.0-32.0) meq/L Anion Gap (5-15) meq/L BUN (7-18) mg/dL Creatinine (0.50-1.00) mg/dL Estimated GFR (>89) mL/min POC Glucose (68-110) mg/dl Random Glucose (74-106) mg/dL Lactic Acid 2.9 H (0.4-2.0) mmol/L Calcium (8.5-10.1) mg/dL Prot Corrected Calcium (8.5-10.1) mg/dL Magnesium (1.5-2.5) mg/dL Total Bilirubin (0.2-1.0) mg/dL AST (15-37) U/L ALT (10-53) U/L Alkaline Phosphatase (45-117) U/L Total Creatine Kinase (26-192) U/L Troponin I (0.02-0.05) ng/mL Total Protein (6.4-8.2) g/dL Albumin (3.4-5.0) g/dL TSH 0.301 L (0.358-3.740) uIU/mL Urine Color (Yellw/Straw) Urine Clarity (Clear) Urine pH (5.0-8.5) Ur Specific [place] (1.002-1.035) Urine Protein (Neg-Trace) mg/dL Urine Glucose (UA) (Negative) mg/dL Urine Ketones (Negative) mg/dL Urine Occult Blood (Negative) Urine Nitrate (Negative) Urine Bilirubin (Negative) Urine Urobilinogen (Less than 2) mg/dL Ur Leukocyte Esterase (Negative) Urine RBC (0-3) /hpf Urine WBC (0-5) /hpf Ur Squamous Epith Cells (0-5) /hpf Urine Mucus (Occasional) /lpf Micro UA Comment Ur Microscopic Review Urine Culture Comments Blood Type O Positive Antibody Screen Negative 07/17/18 07/17/18 07/18/18 Range/Units 20:26 22:12 01:26 WBC (4.0-11.0) th/mm3 RBC (4.00-5.30) mil/mm3 Hgb (11.6-15.3) gm/dL Hct (35.0-46.0) % MCV (80.0-100.0) fL MCH (27.0-34.0) pg MCHC (32.0-36.0) % RDW (11.6-17.2) % Plt Count (150-450) th/mm3 MPV (7.0-11.0) fL Neut % (Auto) (16.0-70.0) % Lymph % (Auto) (9.0-44.0) % [place] % (Auto) (0.0-8.0) % Eos % (Auto) (0.0-4.0) % Baso % (Auto) (0.0-2.0) % Neut # (Auto) (1.8-7.7) th/mm3 Lymph # (Auto) (1.0-4.8) th/mm3 [place] # (Auto) (0.0-0.9) th/mm3 Eos # (Auto) (0.0-0.4) th/mm3 Baso # (Auto) (0.0-0.2) th/mm3 WBC Differential Differential Comment PT (9.8-11.6) sec INR Ratio D-Dimer Quant (PE/DVT) (0.00-0.50) mg/L FEU Sodium (136-145) meq/L Potassium (3.5-5.1) meq/L Chloride (98-107) meq/L Carbon Dioxide (21.0-32.0) meq/L Anion Gap (5-15) meq/L BUN (7-18) mg/dL Creatinine (0.50-1.00) mg/dL Estimated GFR (>89) mL/min POC Glucose 155 H (68-110) mg/dl Random Glucose (74-106) mg/dL Lactic Acid 1.7 (0.4-2.0) mmol/L Calcium (8.5-10.1) mg/dL Prot Corrected Calcium (8.5-10.1) mg/dL Magnesium (1.5-2.5) mg/dL Total Bilirubin (0.2-1.0) mg/dL AST (15-37) U/L ALT (10-53) U/L Alkaline Phosphatase (45-117) U/L Total Creatine Kinase (26-192) U/L Troponin I (0.02-0.05) ng/mL Total Protein (6.4-8.2) g/dL Albumin (3.4-5.0) g/dL TSH (0.358-3.740) uIU/mL Urine Color Yellow (Yellw/Straw) Urine Clarity Hazy H (Clear) Urine pH 5.0 (5.0-8.5) Ur Specific [place] 1.031 (1.002-1.035) Urine Protein 100 H (Neg-Trace) mg/dL Urine Glucose (UA) 500 or greater (Negative) mg/dL Urine Ketones Trace H (Negative) mg/dL Urine Occult Blood Negative (Negative) Urine Nitrate Negative (Negative) Urine Bilirubin Negative (Negative) Urine Urobilinogen 2.0 H (Less than 2) mg/dL Ur Leukocyte Esterase Negative (Negative) Urine RBC Less than 1 (0-3) /hpf Urine WBC 1 (0-5) /hpf Ur Squamous Epith Cells 2 (0-5) /hpf Urine Mucus Many H (Occasional) /lpf Micro UA Comment Culture not ind Ur Microscopic Review Not Reportable Urine Culture Comments Culture not ind Blood Type Antibody Screen Imaging Data Radiologist's impression: Chest X-Ray 07/17/18 19:40 CONCLUSION: No evidence of acute cardiopulmonary disease. Head CT 07/17/18 19:40 CONCLUSION: Negative noncontrast head CT. . Chest CTA 07/17/18 20:50 CONCLUSION: 1. No pulmonary embolus. 2. Mild bilateral atelectasis. 3. No significant change subcentimeter nodule of the left lower lobe, felt to be benign. 4. Coronary artery calcification. Abdomen/Pelvis CT 07/17/18 20:51 CONCLUSION: 1. No obstruction or acute inflammatory changes are seen in the abdomen or pelvis. 2. There is apparent nonobstructing DVT involving the visualized left femoral artery. Bilateral lower extremity venous duplex Doppler recommended. 3. An apparent cyst of the left vulva/vagina only partly seen. 4. No evidence of metastatic disease or recurrent tumor. 5. Enlarged and fatty infiltrated liver. 6. Small hiatal hernia. Venous Doppler Study 07/17/18 22:40 CONCLUSION: Fairly extensive incompletely occlusive thrombus in the left leg ECG Data Attestation: I personally reviewed and interpreted this ECG as follows: Interpretation: The patient had a EKG done on arrival that shows a 2, QRS duration [address] segment elevation. ST depression is noted in lead V2, aVL, lead I. Discharge Plan Discharge Disposition Patient Disposition: 30 Still Patient Discharge Details Diagnosis: Generalized weakness, Anemia Physicians Team ED Provider: Scarlett Cam ED Midlevel Provider: Tova Martinez Primary Care Provider: Maksim Vazquez Attending Provider: Thien Richardson Other Providers: Brissa Zelaya Status ED Status: Left Department Discharge Information Discharge Date/Time: 07/18/18 00:49
[2018-07-17 20:06] LABS: Baso % (Auto) 0.3 % (0.0-2.0); Eos # (Auto) 0.1 th/mm3 (0.0-0.4); Eos % (Auto) 1.8 % (0.0-4.0); Hematocrit 24.3 % (35.0-46.0); Hemoglobin 7.6 gm/dL (11.6-15.3); Lymph # (Auto) 1.6 th/mm3 (1.0-4.8); Lymph % (Auto) 50.5 % (9.0-44.0); Mean Corpuscular HGB Conc 31.4 % (32.0-36.0); Mean Corpuscular Hemoglobin 21.8 pg (27.0-34.0); Mean Corpuscular Volume 69.4 fL (80.0-100.0); Mean Platelet Volume 6.6 fL (7.0-11.0); Mono # (Auto) 0.3 th/mm3 (0.0-0.9); Mono % (Auto) 10.3 % (0.0-8.0); Neut # (Auto) 1.1 th/mm3 (1.8-7.7); Neut % (Auto) 37.1 % (16.0-70.0); Platelet Count 466 th/mm3 (150-450); Red Cell Distribution Width 23.6 % (11.6-17.2); White Blood Count 3.1 th/mm3 (4.0-11.0)
--- NOTE | 2018-07-17 20:16 | CT ---
EXAM DATE: 07/17/2018 8:06 PM EST AGE/SEX: 57 years / Female INDICATIONS: Dizziness. Body aches. CLINICAL DATA: This is the patient's initial encounter. Patient reports that signs and symptoms have been present for 1 week and indicates a pain score of 10/10. MEDICAL/SURGICAL HISTORY: Diabetes. Leukemia. Carcinoma, ovarian. Seizure. Hysterectomy. Bruce rebecca section. RADIATION DOSE: 37.33 CTDI (mGy) COMPARISON: [facility] – [place], CT BRAIN W/O CONTRAST, 05/13/2016. . TECHNIQUE: CT of the head without contrast. Using automated exposure control and adjustment of the mA and/or kV according to patient size, radiation dose was kept as low as reasonably achievable to ob tain optimal diagnostic quality images. DICOM format image data is available electronically for revi ew and comparison. FINDINGS: Cerebrum: The ventricles are normal for age. No evidence of midline shift, mass lesion, hemorrhage or acute infarction. No extraaxial fluid collections are seen. Posterior Fossa: The cerebellum and brainstem are intact. The 4th ventricle is midline. The cerebe llopontine angle is unremarkable. Extracranial: The visualized portion of the orbits is intact. Skull: The calvaria is intact. No evidence of skull fracture. CONCLUSION: Negative noncontrast head CT. . Electronically signed by: Joel Baires MD 07/17/2018 8:15 PM EST
[2018-07-17 20:39] LABS: D-Dimer 1.94 mg/L FEU (0.00-0.50)
--- NOTE | 2018-07-17 20:40 | XR ---
EXAM DATE: 07/17/2018 8:24 PM EST AGE/SEX: 57 years / Female INDICATIONS: Entire body pain and general weakness. CLINICAL DATA: This is the patient's initial encounter. Patient reports that signs and symptoms have been present for 1 day and indicates a pain score of 4/10. MEDICAL/SURGICAL HISTORY: Diabetes mellitus type II. None. COMPARISON: [facility] [place], [place]ST 1V SINGLE AP, 06/29/2018. . FINDINGS: A single AP view of the chest demonstrates the lungs to be symmetrically aerated without evidence of mass, infiltrate or effusion. The cardiomediastinal contours are unremarkable. Osseous structures a re intact. CONCLUSION: No evidence of acute cardiopulmonary disease. Electronically signed by: Joel Baires MD 07/17/2018 8:39 PM EST
[2018-07-17 20:45] LABS: Albumin 2.2 g/dL (3.4-5.0); Calcium 7.4 mg/dL (8.5-10.1); Magnesium 1.2 mg/dL (1.5-2.5); Potassium 3.3 meq/L (3.5-5.1); Total Protein 5.8 g/dL (6.4-8.2); Troponin I 0.03 ng/mL (0.02-0.05)
[2018-07-17] MEDS ORDERED: Mag Sulf 1 gm/100 ml Premix 100 ML IV.SIG ONE (20:50)
[2018-07-17 20:58] LABS: Bilirubin,Urine Negative (Negative); Clarity,Urine Hazy (Clear); Color,Urine Yellow (Yellw/Straw); Glucose,Urine (UA) 500 or Greater mg/dL (Negative); Leukocyte Esterase,Urine Negative (Negative); Mucus,Urine Many /lpf (Occasional); Nitrite,Urine Negative (Negative); Specific Gravity,Urine 1.031 (1.002-1.035); Squamous Epithelial Cell,Urine 2 /hpf (0-5)
--- NOTE | 2018-07-17 22:31 | CT ---
EXAM DATE: 07/17/2018 10:20 PM EST AGE/SEX: 57 years / Female INDICATIONS: Elevated D-Dimer. CLINICAL DATA: This is the patient's initial encounter. Patient reports that signs and symptoms have been present for 1 day and indicates a pain score of 0/10. MEDICAL/SURGICAL HISTORY: Diabetes mellitus type II. Hypertension. Carcinoma, ovarian. Leukemia Hysterectomy. section. RADIATION DOSE: 27.16 CTDI (mGy) COMPARISON: [facility] – [place], CTA CHEST W 3D RECON, 03/08/2012. . TECHNIQUE: Volumetric scanning was performed using a multi-row detector CT scanner during bolus infu luis f of 95 ml Omnipaque 350 (iohexol) nonionic water-soluble contrast as a cumulative dose for multi ple exams. The data was post processed with a variety of visualization algorithms including full volu me maximum intensity projection and sliding thin slab reformation. Using automated exposure control and adjustment of the mA and/or kV according to patient size, radiation dose was kept as low as reaso nably achievable to obtain optimal diagnostic quality images. DICOM format image data is available e lectronically for review and comparison. FINDINGS: There is no pulmonary embolus. Mild atelectasis of both bases and the right mid lung. There is a 7 mm nodule of the left lower lobe, not significantly changed since 2011. No pleural effusion. No pneumothorax. Heart size within normal limits. Right and left side coronary artery calcification present. No perica rdial effusion. CONCLUSION: 1. No pulmonary embolus. 2. Mild bilateral atelectasis. 3. No significant change subcentimeter nodule of the left lower lobe, felt to be benign. 4. Coronary artery calcification. Electronically signed by: Joel Baires MD 07/17/2018 10:29 PM EST
--- NOTE | 2018-07-17 22:39 | CT ---
EXAM DATE: 07/17/2018 10:20 PM EST AGE/SEX: 57 years / Female INDICATIONS: Abdomen pain with diarrhea. CLINICAL DATA: This is the patient's initial encounter. Patient reports that signs and symptoms have been present for 1 day and indicates a pain score of 6/10. MEDICAL/SURGICAL HISTORY: Diabetes mellitus type II. Hypertension. Carcinoma, ovarian. Leuke tiffany Hysterectomy. section. ORAL CONTRAST: No oral contrast ingested. RADIATION DOSE: 8.75 CTDI (mGy) COMPARISON: [facility] – [place], CT ABDOMEN & PELVIS W CONTRAST, 09/30/2016. . TECHNIQUE: Multiple contiguous axial images were obtained through the abdomen and pelvis following b olus infusion of 95 ml Omnipaque 350 (iohexol) nonionic water-soluble contrast as a cumulative dose for multiple exams. No oral contrast ingested. Using automated exposure control and adjustment of t he mA and/or kV according to patient size, radiation dose was kept as low as reasonably achievable to obtain optimal diagnostic quality images. DICOM format image data is available electronically for r eview and comparison. FINDINGS: Liver measures 19.4 cm and is mild fatty infiltrated. No focal hepatic lesion. Spleen, pancreas and a drenal glands are within normal limits. Mild patchy cortical thinning/scarring and a few scattered ti ny cysts seen of both kidneys. No stones or hydronephrosis/hydroureter. No obstruction or inflammatory changes are seen of the gastrointestinal tract. Small hiatal hernia, s imilar to before. No free fluid or free air. No lymphadenopathy. Hysterectomy changes are again noted. No pelvic mass or ascites. Lower most axial image partly shows an approximately 2 cm cystic area of the left vulva and please correlate clinically. There is aortoiliac atherosclerosis without aneurysm. There is low-attenuation filling defect in the visualized left femoral artery. Trace atelectasis of the visualized lung bases. Coronary artery calcification noted. CONCLUSION: 1. No obstruction or acute inflammatory changes are seen in the abdomen or pelvis. 2. There is apparent nonobstructing DVT involving the visualized left femoral artery. Bilateral lowe r extremity venous duplex Doppler recommended. 3. An apparent cyst of the left vulva/vagina only partly seen. 4. No evidence of metastatic disease or recurrent tumor. 5. Enlarged and fatty infiltrated liver. 6. Small hiatal hernia. Electronically signed by: oJel Baires MD 07/17/2018 10:38 PM EST
--- NOTE | 2018-07-17 23:44 | US ---
EXAM DATE: 07/17/2018 11:34 PM EST AGE/SEX: 57 years / Female INDICATIONS: Bilateral leg pain. CLINICAL DATA: This is the patient's initial encounter. Patient reports that signs and symptoms have been present for 7 - 11 months and indicates a pain score of 7/10. MEDICAL/SURGICAL HISTORY: Hypertension. Diabetes. Leukemia. Ovarian cancer. Hysterectomy. Ce sarean section. [place] [facility] [place] 07/17/2018. . TECHNIQUE: Venous ultrasound of both lower extremities was performed from the inguinal ligament to t he proximal calf. Real-time, color Doppler and spectral tracing, compression and augmentation techni ques were used. FINDINGS: Right Leg: Normal compression of the deep venous system from the inguinal region to the proximal yadira f. No echogenic clot is seen. Normal response of the venous system to augmentation and respiration. Left Leg: There is incompletely occlusive thrombus present within the left common femoral vein, prox imal superficial femoral vein, popliteal vein and peroneal vein. Other: None. CONCLUSION: Fairly extensive incompletely occlusive thrombus in the left leg Electronically signed by: Joel Whelan MD 07/17/2018 11:42 PM EST
--- NOTE | 2018-07-18 00:07 | P.HP ---
History of Present Illness Service: [facility] hospitalist Primary Care Physician: Maksim Vazquez Chief Complaint: 12 days progressive weakness History of Present Illness: HPI Narrative: 57-year-old female presents to the emergency department for evaluation of generalized weakness, generalized pain, dizziness, vomiting, diarrhea. Patient states her symptoms have been ongoing for 12 days and have been worsening. Patient reports history of diabetes, leukemia. She currently follows with Dr. Michael. She reports chronic skin infections, abscesses but denies any infection at this time. Patient denies any fevers or chills. She does report some shortness of breath. She also reports chest pain, but states it is the pain that she has everywhere. She reports 2 episodes of vomiting and 2 episodes of diarrhea today. She denies any blood in her stool. Her boyfriend at bedside also contributes to history. The patient states she does not know if she has had any syncopal episodes, but the patient's boyfriend denies syncopal episodes. Moderate severity In er found to have hemoglobin 7.6 wbc count 2.1 ,positive lactic acid non occulsive DVT lleft leg. Will admit give IV fluid ,consult oncology ,due to the low hemoglobin will hold on anticoagulation until seen by oncology,may need IVC filter,CTA negative for PE. - Diagnosis (1) Generalized weakness (2) Anemia (3) Left femoral vein DVT (4) Leukopenia (5) Hypertension Inpatient Certification: I certify that the inpatient services were ordered in accordance with Medicare regulations governing the order. This includes certification that hospital inpatient services are reasonable and necessary and in the case of services not specified as inpatient-only under 42 CFR 419.22(n), that they are appropriately provided as inpatient services in accordance to with the 2-midnight benchmark under 43 CFR 412.3(e) Estimated Total Length of Stay (Days): 3 Plans for Post Hospital Care: Not yet determined Review of Systems All other systems reviewed negative except as stated in HPI PMFSH - History History Provided By: Patient, Family Member - Medical History Medical History: Medical History (Last Reviewed 07/18/18 @ 00:00 by Clovis Du MD) Arthritis Diabetes mellitus H/O: hysterectomy Hypertension Leukemia Ovarian cancer Seizure - Surgical History Surgical History: Surgical History (Last Reviewed 07/18/18 @ 00:00 by Clovis Du MD) H/O: section - Tobacco History Second Hand Smoke Exposure: No Tobacco Use In Past 30 Days: No Smoking Status: Former smoker Tobacco Type: Cigarettes - Alcohol History How Often Do You Have a Drink Containing Alcohol: Never - Substance Use History Substance History: No History of Abuse - Travel History Recent Travel in the [place] Within the Last 8 Weeks: No Recent Travel Out of the Country Within the Last 8 Weeks: No - Immunization History Tetanus Immunization: Unsure Medications and Allergies Active Medications: Active Medications Citalopram Hydrobromide (Celexa) 20 mg PO DAILY ERIKA Sodium Chloride (1/2 Normal Saline Inj) 1,000 mls @ 75 mls/hr IV.CONT .[id number] ERIKA Levetiracetam (Keppra) 500 mg PO TID ERIKA Nifedipine (Procardia Xl) 30 mg PO DAILY ERIKA Pantoprazole Sodium (Protonix) 20 mg PO DAILY ERIKA Propranolol HCl (Inderal) 20 mg PO BID ERIKA Sennosides (Senokot) 17.2 mg PO Q12H PRN PRN Reason: Moderate Constipation Sodium Chloride (Ns Flush) 2 ml IV.FLUSH PRN PRN PRN Reason: FLUSH AFTER USING IV ACCESS Allergies Allergy/AdvReac Type Severity Reaction Status Date / Time ciprofloxacin Allergy Severe Swelling Verified 07/17/18 20:16 penicillin G Allergy Severe RASH Verified 07/17/18 20:16 clindamycin Allergy Intermediate FLU SX Verified 07/17/18 20:16 hydroxychloroquine Allergy Intermediate FLU SX Verified 07/17/18 20:16 gabapentin Allergy Mild Rash Verified 07/17/18 20:16 nitrofurantoin AdvReac Severe N&V Verified 07/17/18 20:16 Home Medications Medication Instructions Recorded Confirmed Type alprazolam [Xanax] 1 mg PO TID 06/29/18 07/17/18 History citalopram 20 mg PO DAILY 06/29/18 07/17/18 History hydrocodone-acetaminophen [[place]] 1 tab PO Q4-6H PRN 06/29/18 07/17/18 History levetiracetam [Keppra] 500 mg PO TID 06/29/18 07/17/18 History nifedipine 30 mg PO DAILY 06/29/18 07/17/18 History ondansetron HCl [Zofran] 4 mg PO BID PRN 06/29/18 07/17/18 History pantoprazole [Protonix] 20 mg PO DAILY 06/29/18 07/17/18 History propranolol 20 mg PO BID 06/29/18 07/17/18 History spironolactone 25 mg PO DAILY 06/29/18 07/17/18 History Exam Vital signs: Vital Signs 07/17/18 19:19 07/17/18 19:40 07/17/18 20:01 Temperature 98.8 F Pulse Rate 131 H 124 H 119 H Respiratory Rate 18 20 Blood Pressure 148/76 H 153/67 H Pulse Oximetry 98 98 07/17/18 21:15 07/17/18 22:22 Temperature Pulse Rate 110 H 99 H Respiratory Rate 18 18 Blood Pressure 135/59 L 142/73 H Pulse Oximetry 96 99 Intake & Output 07/17/18 07/17/18 07/18/18 06:59 18:59 06:59 Intake Total 2100 / 2100 Output Total 500 / 500 Balance 1600 / 1600 Weight 70.307 kg Intake: IV 2099 / 2099 Magnesium Sulfate 1 gm/D5W 100 100 / 100 ml Premix 100 ML @ 100 mls/hr IV.SIG ONCE ONE Rx#:[id number] NS Inj 1,000 ML @ Wide Open IV. 1999 / 1999 SIG BOLUS ONE Rx#:[id number] Output: Urine Amount (Catheter) 500 / 500 Straight 500 / 500 Narrative: GENERAL: SKIN: Warm and dry. HEAD: Normocephalic. EYES: No scleral icterus. No injection or drainage. NECK: Supple, trachea midline. No JVD or lymphadenopathy. CARDIOVASCULAR: Regular rate and rhythm without murmurs, gallops, or rubs. RESPIRATORY: Breath sounds equal bilaterally. No accessory muscle use. GASTROINTESTINAL: Abdomen soft, non-tender, nondistended. MUSCULOSKELETAL: No cyanosis, or edema. BACK: Nontender without obvious deformity. No CVA tenderness. Results - Labs CBC & Chem 7: 07/17/18 19:53 07/17/18 19:53 Labs: Laboratory Results - last 24 hr 07/17/18 07/17/18 07/17/18 19:53 19:53 19:53 WBC 3.1 L RBC 3.50 L Hgb 7.6 L Hct 24.3 L MCV 69.4 L MCH 21.8 L MCHC 31.4 L RDW 23.6 H Plt Count 466 H MPV 6.6 L Neut % (Auto) 37.1 Lymph % (Auto) 50.5 H [place] % (Auto) 10.3 H Eos % (Auto) 1.8 Baso % (Auto) 0.3 Neut # (Auto) 1.1 L Lymph # (Auto) 1.6 [place] # (Auto) 0.3 Eos # (Auto) 0.1 Baso # (Auto) 0.0 WBC Differential . Differential Comment Auto diff final PT 10.0 INR 1.0 D-Dimer Quant (PE/DVT) 1.94 H Sodium 141 Potassium 3.3 L Chloride 106 Carbon Dioxide 26.0 Anion Gap 9 BUN 12 Creatinine 0.82 Estimated GFR 72 L Random Glucose 253 H Lactic Acid Calcium 7.4 L* Prot Corrected Calcium 8.1 L Magnesium 1.2 L Total Bilirubin 0.1 L AST 13 L ALT 11 Alkaline Phosphatase 111 Total Creatine Kinase 25 L Troponin I 0.03 Total Protein 5.8 L Albumin 2.2 L TSH Urine Color Urine Clarity Urine pH Ur Specific [place] Urine Protein Urine Glucose (UA) Urine Ketones Urine Occult Blood Urine Nitrate Urine Bilirubin Urine Urobilinogen Ur Leukocyte Esterase Urine RBC Urine WBC Ur Squamous Epith Cells Urine Mucus Micro UA Comment Ur Microscopic Review Urine Culture Comments Blood Type Antibody Screen 07/17/18 07/17/18 07/17/18 19:53 19:53 19:53 WBC RBC Hgb Hct MCV MCH MCHC RDW Plt Count MPV Neut % (Auto) Lymph % (Auto) [place] % (Auto) Eos % (Auto) Baso % (Auto) Neut # (Auto) Lymph # (Auto) [place] # (Auto) Eos # (Auto) Baso # (Auto) WBC Differential Differential Comment PT INR D-Dimer Quant (PE/DVT) Sodium Potassium Chloride Carbon Dioxide Anion Gap BUN Creatinine Estimated GFR Random Glucose Lactic Acid 2.9 H Calcium Prot Corrected Calcium Magnesium Total Bilirubin AST ALT Alkaline Phosphatase Total Creatine Kinase Troponin I Total Protein Albumin TSH 0.301 L Urine Color Urine Clarity Urine pH Ur Specific [place] Urine Protein Urine Glucose (UA) Urine Ketones Urine Occult Blood Urine Nitrate Urine Bilirubin Urine Urobilinogen Ur Leukocyte Esterase Urine RBC Urine WBC Ur Squamous Epith Cells Urine Mucus Micro UA Comment Ur Microscopic Review Urine Culture Comments Blood Type O Positive Antibody Screen Negative 07/17/18 07/17/18 20:26 22:12 WBC RBC Hgb Hct MCV MCH MCHC RDW Plt Count MPV Neut % (Auto) Lymph % (Auto) [place] % (Auto) Eos % (Auto) Baso % (Auto) Neut # (Auto) Lymph # (Auto) [place] # (Auto) Eos # (Auto) Baso # (Auto) WBC Differential Differential Comment PT INR D-Dimer Quant (PE/DVT) Sodium Potassium Chloride Carbon Dioxide Anion Gap BUN Creatinine Estimated GFR Random Glucose Lactic Acid 1.7 Calcium Prot Corrected Calcium Magnesium Total Bilirubin AST ALT Alkaline Phosphatase Total Creatine Kinase Troponin I Total Protein Albumin TSH Urine Color Yellow Urine Clarity Hazy H Urine pH 5.0 Ur Specific [place] 1.031 Urine Protein 100 H Urine Glucose (UA) 500 or greater Urine Ketones Trace H Urine Occult Blood Negative Urine Nitrate Negative Urine Bilirubin Negative Urine Urobilinogen 2.0 H Ur Leukocyte Esterase Negative Urine RBC Less than 1 Urine WBC 1 Ur Squamous Epith Cells 2 Urine Mucus Many H Micro UA Comment Culture not ind Ur Microscopic Review Not Reportable Urine Culture Comments Culture not ind Blood Type Antibody Screen - Imaging Impressions Chest X-Ray 07/17/18 19:40 CONCLUSION: No evidence of acute cardiopulmonary disease. Head CT 07/17/18 19:40 CONCLUSION: Negative noncontrast head CT. . Chest CTA 07/17/18 20:50 CONCLUSION: 1. No pulmonary embolus. 2. Mild bilateral atelectasis. 3. No significant change subcentimeter nodule of the left lower lobe, felt to be benign. 4. Coronary artery calcification. Abdomen/Pelvis CT 07/17/18 20:51 CONCLUSION: 1. No obstruction or acute inflammatory changes are seen in the abdomen or pelvis. 2. There is apparent nonobstructing DVT involving the visualized left femoral artery. Bilateral lower extremity venous duplex Doppler recommended. 3. An apparent cyst of the left vulva/vagina only partly seen. 4. No evidence of metastatic disease or recurrent tumor. 5. Enlarged and fatty infiltrated liver. 6. Small hiatal hernia. Venous Doppler Study 07/17/18 22:40 CONCLUSION: Fairly extensive incompletely occlusive thrombus in the left leg Caprini VTE Risk Assessment Caprini VTE Risk Assessment: Moderate/High Risk (score >= 2) Caprini Risk Assessment Model: Point Value = 1 Point Value = 2 Point Value = 3 Point Value = 5 Age 41-60 Minor surgery BMI > 25 kg/m2 Swollen legs Varicose veins or History of unexplained or recurrent spontaneous Oral contraceptives or hormone replacement Sepsis (< 1 month) Serious lung disease, including pneumonia (< 1 month) Abnormal pulmonary function Acute myocardial infarction Congestive heart failure (< 1 month) History of inflammatory bowel disease Medical patient at bed rest Age 61-74 Arthroscopic surgery Major open surgery (> 45 min) Laparoscopic surgery (> 45 min) Malignancy Confined to bed (> 72 hours) Immobilizing plaster cast Central venous access Age >= 75 History of VTE Family history of VTE Factor V Leiden Prothrombin [id number] Lupus anticoagulant Anticardiolipin antibodies Elevated serum homocysteine Heparin-induced thrombocytopenia Other congenital or acquired thrombophilia Stroke (< 1 month) Elective arthroplasty Hip, pelvis, or leg fracture Acute spinal cord injury (< 1 month) Prophylaxis Regimen: Total Risk Factor Score Risk Level Prophylaxis Regimen 0-1 Low Early ambulation 2 Moderate Order ONE of the following: *Sequential Compression Device (SCD) *Heparin 5000 units SQ BID 3-4 Higher Order ONE of the following medications: *Heparin 5000 units SQ TID *Enoxaparin/Lovenox 40 mg SQ daily (WT < 150 kg, CrCl > 30 mL/min) *Enoxaparin/Lovenox 30 mg SQ daily (WT < 150 kg, CrCl > 10-29 mL/min) *Enoxaparin/Lovenox 30 mg SQ BID (WT < 150 kg, CrCl > 30 mL/min) AND/OR *Sequential Compression Device (SCD) 5 or more Highest Order ONE of the following medications: *Heparin 5000 units SQ TID (Preferred with Epidurals) *Enoxaparin/Lovenox 40 mg SQ daily (WT < 150 kg, CrCl > 30 mL/min) *Enoxaparin/Lovenox 30 mg SQ daily (WT < 150 kg, CrCl > 10-29 mL/min) *Enoxaparin/Lovenox 30 mg SQ BID (WT < 150 kg, CrCl > 30 mL/min) AND *Sequential Compression Device (SCD) Assessment and Plan - Assessment (1) Generalized weakness Code(s): R53.1 - Weakness Status: Acute Plan: will start IV fluid follow up labs (2) Anemia Code(s): D64.9 - Anemia, unspecified Status: Acute Plan: In review patient has history t cell leukemia on questioning unable to tell me when she was treated in past will consult oncology as patient has low hgb and wbc count follow up labs (3) Left femoral vein DVT Code(s): I82.412 - Acute embolism and thrombosis of left femoral vein Status: Acute Plan: DVT based on venous ultrasound CTA negative will consult oncology ,hold anticoagulation as patient has low hemoglobin scd for now may require IVC filter (4) Leukopenia Code(s): D72.819 - Decreased white blood cell count, unspecified Status: Acute Plan: as above ,patient had slight elevation lactic acid no infectious source obtain blood cultures (5) Hypertension Code(s): I10 - Essential (primary) hypertension Status: Acute Plan: continue home medications - Plan further plan as case develops will hold on home narcotics due to weakness and somewhat lethargic and poor response to questions. Code Status: full Discussed Condition With: patient (2) Anemia Qualifiers: Anemia type: unspecified type Qualified Code(s): D64.9 - Anemia, unspecified
--- NOTE | 2018-07-18 00:13 | P.PNADD ---
Addendum to Inpatient Note Reason for Addendum: Additional Documentation Additional information: review old record hx t cell lymphoma,adenocarcinoma [id number],polycystic ovary, rheumatoid arthritis
[2018-07-18] MEDS: Sodium Chloride 0.45 % Inj 1,000 ML IV.CONT SCH ×2 (00:16→17:05)
[2018-07-18] MEDS ORDERED: Acetaminophen 325 MG Tablet PO PRN (02:55)
[2018-07-18 07:16] LABS: Hematocrit 23.6 % (35.0-46.0); Hemoglobin 7.4 gm/dL (11.6-15.3); Mean Corpuscular HGB Conc 31.2 % (32.0-36.0); Mean Corpuscular Hemoglobin 21.8 pg (27.0-34.0); Mean Platelet Volume 6.8 fL (7.0-11.0); Platelet Count 449 th/mm3 (150-450); Red Blood Count 3.37 mil/mm3 (4.00-5.30); Red Cell Distribution Width 23.8 % (11.6-17.2); White Blood Count 2.5 th/mm3 (4.0-11.0)
[2018-07-18 07:44] LABS: Anion Gap 7 meq/L (5-15); Blood Urea Nitrogen 7 mg/dL (7-18); Calcium 7.5 mg/dL (8.5-10.1); Carbon Dioxide 27.7 meq/L (21.0-32.0); Chloride 108 meq/L (98-107); Glomerular Filtration Rate Greater Than 89 mL/min (>89); Glucose,Random 114 mg/dL (74-106); Potassium 3.2 meq/L (3.5-5.1); Sodium 143 meq/L (136-145)
[2018-07-18] MEDS: Pantoprazole Sodium 20 MG DR Tablet PO SCH (09:01)
[2018-07-18] MEDS: levETIRAcetam 500 MG Tablet PO SCH ×3 (09:01→18:11)
[2018-07-18] MEDS: Citalopram 20 MG Tablet PO SCH (09:01)
[2018-07-18 09:42] LABS: Eosinophils 2 % (0-4); Lymphocytes 36 % (9-44); Monocytes 4 % (0-8)
[2018-07-18 09:43] LABS: Platelet Estimate Normal (Normal); Platelet Morphology Normal (Normal)
--- NOTE | 2018-07-18 11:15 | P.PNIM ---
Subjective Interval history: Pt complains of pain "all over" and overall feels very weak She denies any obvious GIB, no reported melena, BRBPR, or hematochezia. Afebrile Physical Exam Vital signs: Last Vital Signs Temp 98.3 F 07/18/18 08:00 Pulse 98 H 07/18/18 08:00 Resp 16 07/18/18 08:00 BP 147/77 H 07/18/18 08:00 Pulse Ox 100 07/18/18 08:00 Narrative: General: NAD, AAOx3 Chest: CTA Cardiac: Regular Abd: +BS, soft ND/NT Ext: LLE edema Results Labs CBC & Chem 7: 07/18/18 05:54 07/18/18 05:54 Imaging Chest X-Ray 07/17/18 19:40 CONCLUSION: No evidence of acute cardiopulmonary disease. Head CT 07/17/18 19:40 CONCLUSION: Negative noncontrast head CT. . Chest CTA 07/17/18 20:50 CONCLUSION: 1. No pulmonary embolus. 2. Mild bilateral atelectasis. 3. No significant change subcentimeter nodule of the left lower lobe, felt to be benign. 4. Coronary artery calcification. Abdomen/Pelvis CT 07/17/18 20:51 CONCLUSION: 1. No obstruction or acute inflammatory changes are seen in the abdomen or pelvis. 2. There is apparent nonobstructing DVT involving the visualized left femoral artery. Bilateral lower extremity venous duplex Doppler recommended. 3. An apparent cyst of the left vulva/vagina only partly seen. 4. No evidence of metastatic disease or recurrent tumor. 5. Enlarged and fatty infiltrated liver. 6. Small hiatal hernia. Venous Doppler Study 07/17/18 22:40 CONCLUSION: Fairly extensive incompletely occlusive thrombus in the left leg Assessment and Plan Assessment (1) Generalized weakness: Code(s): R53.1 - Weakness Status: Acute (2) Anemia: Code(s): D64.9 - Anemia, unspecified Status: Acute (3) Left femoral vein DVT: Code(s): I82.412 - Acute embolism and thrombosis of left femoral vein Status: Acute (4) Leukopenia: Code(s): D72.819 - Decreased white blood cell count, unspecified Status: Acute (5) Hypertension: Code(s): I10 - Essential (primary) hypertension Status: Acute Plan Generalized weakness Nausea/vomiting/diarrhea Anemia - Pt is a 57 y/o WF with stage II ovarian cancer, T-granular lymphocyte leukemia (CLL), chronic neutropenia, RA, diabetes, HTN and chronic pain. - She presented to the ED at [facility] [place] on 07/17/18 for evaluation of generalized weakness, generalized pain, dizziness, vomiting, diarrhea. Patient states her symptoms have been ongoing for 12 days and have been worsening. She reported some shortness of breath and pain that says is everywhere. She reported 2 episodes of vomiting and 2 episodes of diarrhea today. - In the ED she was found to have hemoglobin 7.6, WBC count 2.1 - We will order transfusion with 2 units PRBCs with Lasix in between the two units - Monitor labs closely - PT evaluation Left leg DVT - In the ED pt was found to have a non occlusive DVT in the left leg. - Chest CTA (07/17/18) 1. No pulmonary embolus. 2. Mild bilateral atelectasis. 3. No significant change subcentimeter nodule of the left lower lobe, felt to be benign. 4. Coronary artery calcification. - Pt to receive transfusion with PRBCs today - We will start Lovenox 80mg SQ BID - Oncology has been consulted. - Pain control PRN. Pt reports that she was on a Fentanyl patch 25mcg Q3D at home and [place] PRN. - Resume Fentanyl patch and [place] 5/325 PRN T-granular lymphocyte leukemia (CLL) Leukopenia - Pt follows with Dr. Leandro Will, initially diagnosed in 2016 - Pt was initially offered Cytoxan, which she declined and was started on Cyclosporine, but has been noncompliant with treatments and followups according to outpt records. - The last note from her Oncologist in 02/2018 reports that the pt decided to go on Hospice at that time but the pt report that her leukemia became stable andnshe was discharged from hospice. - Oncology, Dr. Zelaya, has been consulted. HTN - Home meds continued per med rec - Pt was being seen by [facility] for the last 5-6 months. Progress Note: Quality VTE Deep Vein Thrombosis/Pulmonary Embolism Present on Admission: No _ (1) Anemia Qualifiers: Anemia type: unspecified type Bone marrow failure anemia type: Chronic kidney disease stage: Folate deficiency anemia type: Hemolytic anemia type: Iron deficiency anemia type: Other causes of anemia: Vitamin B12 deficiency anemia type: Qualified Code(s): D64.9 - Anemia, unspecified (2) Leukopenia Qualifiers: Leukopenia type: Neutropenia type: (3) Left femoral vein DVT Qualifiers: Chronicity: (4) Hypertension Qualifiers: Hypertension type:
[2018-07-18] MEDS: Enoxaparin Inj 80 MG/0.8 ML Syringe SQ SCH (12:42)
[2018-07-18] MEDS ORDERED: Sodium Chlor 0.9% Inj 250 ML IV.SIG SCH (13:00)
--- NOTE | 2018-07-18 19:38 | MB ---
cc: Brissa Zelaya MD,Clovis Souza MD DATE: 07/18/2018 REFERRING PHYSICIAN: Clovis Du MD CHIEF COMPLAINT; Dr. Du requests a consultation for Ms. Vasquez regarding new left lower extremity deep vein thrombosis in a patient with T-cell LGL. HISTORY OF PRESENT ILLNESS: Ms. Vasquez is a 57-year-old woman, previous patient of Dr. Cody Felder and Dr. Rico Will. She was last seen by Dr. Will on 04/02/2018. 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 Her most recent bone marrow biopsy was from 02/05/2017. She has mild leukopenia with neutropenia. The more recent bone marrow showed a B-cell kappa light chain restricted component. However, the serum protein electrophoresis was negative. Ms. Vasquez has many medical problems including a history of stage II ovarian cancer in remission, rheumatoid arthritis which is very symptomatic, diabetes, depression, osteoporosis. She was under hospice care with [facility] about 8 months ago. She was discharged from hospice care. Her was told she needed a letter from the oncologist stating the progression of her T-cell leukemia in order to be placed in hospice again. However, it appears that the primary reason for the initial hospice referral was her rheumatoid arthritis. She came in to the emergency room despite her new oncologist situated at [facility] with complaint of generalized weakness. She was seen by FAISAL Pierce. She has been to the [facility] several times despite her medical oncologist to be at [facility]. Her ER visit on 06/29/2018 shows an ER visit for a very high glucose. On 07/17/2018, she came in with generalized weakness and lack of energy. She has a severity that has been progressive. She has had an extensive evaluation including a CT angiogram that was negative for pulmonary embolism. A CT abdomen and pelvis showed an enlarged fatty liver and a small hiatal hernia, but no obstruction or inflammatory changes. Doppler ultrasound of the left lower extremity showed a fairly extensive incompletely occlusive thrombus in the left leg. I am unable to ascertain from the history the chronicity of her left leg swelling and symptoms. Apparently, she does walk but very little at home. She is quite hampered by her symptoms related to her rheumatoid arthritis. On repeated questioning, she denies any bleeding. No melena or bright red blood per rectum. Her is at bedside. He pretty much answers for her. She confers her 's report. Review of the electronic medical record shows a fairly normal hemoglobin back in September 2016. There was a gradual decrease in the hemoglobin. Furthermore, there was a gradual decrease of the MCV to a microcytic nature in 2018. Her platelet count likewise has increased to above 400,000 in the last 2 months. This is as the hemoglobin decreased down to 7.6 at the time of admission and to 7.4 on repeat. Her white count has been low chronically from the T-cell LGL. She has chronic neutropenia with ANCs sometimes below 500. Her ANC was 1100 on admission. Review of the electronic medical records shows that she has had the neutropenia dating back to 2015. She has had intermittent anemia in the past. Her serum electrophoresis on 04/02/2017 was negative. Her claims that they cannot afford the copay to see Dr. Will at [facility]. He was looking to have a letter to instate her back to hospice care. She was last seen by Dr. Rico Will on 04/02/2017. At that time, her rheumatoid arthritis was managed by Dr. Oviedo. 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 PAST SURGICAL HISTORY: , hysterectomy, bone marrow biopsy x 2, resection of large ovarian mass, intraperitoneal biopsy, colonoscopy. ALLERGIES: CIPRO, CLEOCIN, PENICILLIN, PLAQUENIL. FAMILY HISTORY: Noncontributory. No significant family history of cancer. SOCIAL HISTORY: Denies any tobacco, alcohol or illicit drug use. CURRENT MEDICATIONS: Include: 1. Tylenol. 2. [place]. 3. Celexa. 4. Lovenox. 5. Fentanyl. 6. Keppra. 7. Procardia. 8. Protonix. 9. Inderal. 10. Senokot. PHYSICAL EXAMINATION: VITAL SIGNS: Temperature 97.3, heart rate 82, respiratory rate 16, blood pressure 145/69, saturation 94%. GENERAL: Ms. Vasquez is a well-developed, obese woman who looks her stated age. She has some facial hair. HEENT: Her pupils are round and reactive to light and accommodation. Oropharynx is clear. NECK: Supple. LUNGS: Clear anteriorly. CARDIOVASCULAR: Reveals a normal rate and rhythm. ABDOMEN: Distended. EXTREMITIES: Lower extremities with asymmetry with the left leg more prominent than the right. She has some osteoarthritic changes of the knees. She has chronic synovitis of the hands. LABORATORY DATA: As described above. ASSESSMENT AND PLAN: Ms. Vasquez is a 57-year-old woman with multiple medical problems described above. She was seen by Dr. Rico Will and Dr. Felder for T-cell large granular lymphocytic leukemia. 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 It was causing her chronic leukopenia/neutropenia. She was offered immunosuppressive therapy, but she declined and was apparently noncompliant. From the history the reports, Dr. Will from [facility] likewise recommends no therapy for the T-cell large granular lymphocytic leukemia. We discussed T-cell large granular lymphocytic leukemia generally has an indolent course. Noted is the gradual decrease in her hemoglobin and the microcytic nature of the anemia. I suspect that there is iron deficiency and/or occult blood loss. I concur with the transfusion. In the meantime, however, iron studies and stool for Hemoccult will be performed. Most pressing and the and the patient's concern is their wish to return back to hospice care with [facility]. loan operations manager will be consulted. Apparently, they need a letter of recommendation in order to go back to hospice care. She would not be able to do so from the chronic leukemia standpoint as the T-cell large granular lymphocytic leukemia is typically indolent and at this point does not appear to be progressing. The leukopenia and neutropenia are chronic conditions. She may meet hospice criteria in light of her other medical problems, namely the rheumatoid arthritis for which she was admitted to hospice previously. I discussed the case with Dr. Richardson. I concur with initiating low molecular weight heparin 80 mg subcutaneously q.12 hours for treatment of the left lower extremity deep vein thrombosis. The acuity or the chronicity of this is not known. I anticipate being able to switch her to a newer oral anticoagulant. I would like to see that her hemoglobin remains stable and that there is no acute bleed before starting her on new oral anticoagulant therapy. Her renal function is normal. Her age would allow her to be able to tolerate a new oral anticoagulant well upon discharge. MD CHRISTA Jacobson/roxann , 06:15 PM , 06:32 PM
--- NOTE | 2018-07-18 21:15 | ECG ---
Date Performed: 07/17/2018 Time Performed: 19:35:00 PTAGE: 57 years EKG: SINUS TACHYCARDIA MODERATE ST DEPRESSION ABNORMAL ECG PREVIOUS TRACING : 01/05/2017 12.08 Compared to previous tracing, rate faster DOCTOR: Gayla Ramachandran Interpretating Date/Time 07/18/2018 21:14:51
[2018-07-19] MEDS: Enoxaparin Inj 80 MG/0.8 ML Syringe SQ SCH ×2 (00:18→12:27)
[2018-07-19] MEDS: Sodium Chloride 0.45 % Inj 1,000 ML IV.CONT SCH ×2 (08:01→17:02)
[2018-07-19 08:12] LABS: Baso % (Auto) 0.3 % (0.0-2.0); Eos # (Auto) 0.1 th/mm3 (0.0-0.4); Eos % (Auto) 2.6 % (0.0-4.0); Hematocrit 29.7 % (35.0-46.0); Hemoglobin 9.5 gm/dL (11.6-15.3); Lymph # (Auto) 1.5 th/mm3 (1.0-4.8); Lymph % (Auto) 56.2 % (9.0-44.0); Mean Corpuscular Hemoglobin 22.6 pg (27.0-34.0); Mean Corpuscular Volume 70.6 fL (80.0-100.0); Mean Platelet Volume 6.9 fL (7.0-11.0); Mono # (Auto) 0.3 th/mm3 (0.0-0.9); Mono % (Auto) 9.5 % (0.0-8.0); Neut # (Auto) 0.9 th/mm3 (1.8-7.7); Neut % (Auto) 31.4 % (16.0-70.0); Platelet Count 480 th/mm3 (150-450); Red Blood Count 4.21 mil/mm3 (4.00-5.30); Red Cell Distribution Width 22.9 % (11.6-17.2); White Blood Count 2.7 th/mm3 (4.0-11.0)
[2018-07-19] MEDS: levETIRAcetam 500 MG Tablet PO SCH ×2 (08:26→12:27)
[2018-07-19] MEDS: Pantoprazole Sodium 20 MG DR Tablet PO SCH (08:26)
[2018-07-19] MEDS: Citalopram 20 MG Tablet PO SCH (08:26)
[2018-07-19 08:46] LABS: Anion Gap 8 meq/L (5-15); Blood Urea Nitrogen 8 mg/dL (7-18); Carbon Dioxide 30.1 meq/L (21.0-32.0); Chloride 103 meq/L (98-107); Glomerular Filtration Rate Greater Than 89 mL/min (>89); Glucose,Random 111 mg/dL (74-106); Magnesium 1.2 mg/dL (1.5-2.5); Potassium 3.3 meq/L (3.5-5.1); Sodium 141 meq/L (136-145)
[2018-07-19 08:47] LABS: Iron 42 mcg/dL (50-170); Lactate Dehydrogenase 153 U/L (84-246)
[2018-07-19 08:51] LABS: Ferritin 48 ng/mL (8-252); Total Iron Binding Capacity 262 mcg/dL (250-450)
[2018-07-19 08:58] LABS: Eosinophils 2 % (0-4); Lymphocytes 51 % (9-44); Monocytes 10 % (0-8); Platelet Morphology Normal (Normal)
[2018-07-19] MEDS ORDERED: Dextrose 50% in Water 50 ML Vial IV.PUSH PRN (11:02)
--- NOTE | 2018-07-19 11:28 | P.PNIM ---
Subjective Interval history: Pt does not feel that her pain is well controlled She is requesting her Xanax be resumed. Pt denies any melena or BRBPR. Pt received transfusion with 2 units PRBCs yesterday Physical Exam Vital signs: Last Vital Signs Temp 97.6 F 07/19/18 08:00 Pulse 107 H 07/19/18 08:00 Resp 16 07/19/18 08:00 BP 147/67 H 07/19/18 08:00 Pulse Ox 98 07/19/18 08:00 Narrative: General: NAD, AAOx3 Chest: CTA Cardiac: Regular Abd: +BS, soft ND/NT Ext: LLE edema Results Labs CBC & Chem 7: 07/19/18 06:33 07/19/18 06:35 Imaging Chest X-Ray 07/17/18 19:40 CONCLUSION: No evidence of acute cardiopulmonary disease. Head CT 07/17/18 19:40 CONCLUSION: Negative noncontrast head CT. . Chest CTA 07/17/18 20:50 CONCLUSION: 1. No pulmonary embolus. 2. Mild bilateral atelectasis. 3. No significant change subcentimeter nodule of the left lower lobe, felt to be benign. 4. Coronary artery calcification. Abdomen/Pelvis CT 07/17/18 20:51 CONCLUSION: 1. No obstruction or acute inflammatory changes are seen in the abdomen or pelvis. 2. There is apparent nonobstructing DVT involving the visualized left femoral artery. Bilateral lower extremity venous duplex Doppler recommended. 3. An apparent cyst of the left vulva/vagina only partly seen. 4. No evidence of metastatic disease or recurrent tumor. 5. Enlarged and fatty infiltrated liver. 6. Small hiatal hernia. Venous Doppler Study 07/17/18 22:40 CONCLUSION: Fairly extensive incompletely occlusive thrombus in the left leg Assessment and Plan Assessment (1) Generalized weakness: Code(s): R53.1 - Weakness Status: Acute (2) Anemia: Code(s): D64.9 - Anemia, unspecified Status: Acute (3) Left femoral vein DVT: Code(s): I82.412 - Acute embolism and thrombosis of left femoral vein Status: Acute (4) Leukopenia: Code(s): D72.819 - Decreased white blood cell count, unspecified Status: Acute (5) Hypertension: Code(s): I10 - Essential (primary) hypertension Status: Acute Plan Generalized weakness Nausea/vomiting/diarrhea Anemia - Pt is a 57 y/o WF with stage II ovarian cancer, T-granular lymphocyte leukemia (CLL), chronic neutropenia, RA, diabetes, HTN and chronic pain. - She presented to the ED at [facility] on 07/17/18 for evaluation of generalized weakness, generalized pain, dizziness, vomiting, diarrhea. Patient states her symptoms have been ongoing for 12 days and have been worsening. She reported some shortness of breath and pain that says is everywhere. She reported 2 episodes of vomiting and 2 episodes of diarrhea today. - In the ED she was found to have hemoglobin 7.6, WBC count 2.1 - Pt s/p transfusion with 2 units PRBCs with Lasix in between on 07/18/18 with improvement in Hgb to 9.5/Hct 29.7 today. - Monitor labs closely - Case was discussed with Hematology, and they feel that the pts microcytic anemia is likely related to iron deficiency and/or occult blood loss. - Iron studies were checked this morning but this was post-transfusion. Serum Fe 42, TIBC 262, % Sat 16, Ferritin 48. - Stool for Hemoccult is ordered - GI consultation. - PT evaluation Left leg DVT - In the ED pt was found to have a non occlusive DVT in the left leg. - Chest CTA (07/17/18) 1. No pulmonary embolus. 2. Mild bilateral atelectasis. 3. No significant change subcentimeter nodule of the left lower lobe, felt to be benign. 4. Coronary artery calcification. - Pt received transfusion with PRBCs on 07/18/18 - Pt started Lovenox 80mg SQ BID on 07/18/18 - Oncology is following. Rheumatoid Arthritis - Pain control PRN. Pt reports that she was on a Fentanyl patch 25mcg Q3D at home and [place] PRN. - Pt was resumed Fentanyl patch and [place] 5/325 Q4H PRN on 07/18 but she does not feel that this is helping. - CRP is 11.0 T-granular lymphocyte leukemia (CLL) Leukopenia - Pt follows with Dr. Leandro Will, initially diagnosed in 2016 - Pt was initially offered Cytoxan, which she declined and was started on Cyclosporine, but has been noncompliant with treatments and followups according to outpt records. - The last note from her Oncologist in 02/2018 reports that the pt decided to go on Hospice at that time but the pt report that her leukemia became stable andnshe was discharged from hospice. - Oncology, Dr. Zelaya, has been consulted. HTN - Home meds continued per med rec - Pt was being seen by [facility] for the last 5-6 months. Progress Note: Quality VTE Deep Vein Thrombosis/Pulmonary Embolism Present on Admission: No _ (1) Anemia Qualifiers: Anemia type: unspecified type Bone marrow failure anemia type: Chronic kidney disease stage: Folate deficiency anemia type: Hemolytic anemia type: Iron deficiency anemia type: Other causes of anemia: Vitamin B12 deficiency anemia type: Qualified Code(s): D64.9 - Anemia, unspecified (2) Left femoral vein DVT Qualifiers: Chronicity: (3) Leukopenia Qualifiers: Leukopenia type: Neutropenia type: (4) Hypertension Qualifiers: Hypertension type:
[2018-07-19] MEDS ORDERED: Potassium Chloride 10 MEQ ER Capsule PO ONE (12:00)
[2018-07-19] MEDS: ALPRAZolam 0.5 MG Tablet PO PRN (12:27)
[2018-07-19] MEDS: Mag Sulf 1 gm/100 ml Premix 100 ML IV.SIG SCH ×2 (12:28→13:30)
[2018-07-19] MEDS ORDERED: PEG 3350/E-Lyte Soln 4000 ML Bottle PO ONE (13:00)
[2018-07-19] MEDS: Insulin NovoLOG Aspart Correctional Sugar Inj SQ SCH ×2 (13:29→17:00)
--- NOTE | 2018-07-19 14:28 | P.CONGI ---
History of Present Illness Consult date: 07/19/18 Consult reason: Anemia Chief complaint: generalized weakness, anemia History of Present Illness: This patient is a 57-year-old female who was admitted to [facility] on 07/17/2018 with a complaint of generalized weakness, generalized pain, dizziness, vomiting and diarrhea. Patient states onset over last 10-12 days. Patient's medical history significant for diabetes, leukemia, chronic skin infections and hypertension. Also history of DVT left femoral vein. Upon consultation patient endorses no noted bleeding in stool, no hematocrit emesis or dark stools. She states her last colonoscopy was 8-10 years ago and there were normal findings per her recollection. States she normally moves her bowels once every other day soft and formed to loose.Patient denies abdominal surgeries, use of NSAIDs, EtOH or tobacco use. Denies any known family history of gastrointestinal disorders. She endorses occasional heartburn with difficulty swallowing solid foods and medications. States that she will suck on a few ice chips to decrease the swelling and make swallowing easier. She denies choking or coughing with eating or drinking. Our service has been consulted to evaluate patient's present anemia. Hemoglobin 9.5 hematocrit 29.7 <Leigh Ramsey - Last Filed: 07/19/18 14:16> Review of Systems All other systems reviewed negative except as stated in HPI <Leigh Ramsey - Last Filed: 07/19/18 14:16> PMFSH - History History Provided By: Patient - Medical History Medical History: Medical History (Last Reviewed 07/19/18 @ 11:21 by Laura Mcnulty PT) Arthritis Diabetes mellitus H/O: hysterectomy Hypertension Leukemia Ovarian cancer Seizure - Surgical History Surgical History: Surgical History (Last Reviewed 07/19/18 @ 11:21 by Laura Mcnulty PT) H/O: section - Tobacco History Second Hand Smoke Exposure: Yes Tobacco Use In Past 30 Days: No Smoking Status: Former smoker Tobacco Type: Cigarettes - Alcohol History How Often Do You Have a Drink Containing Alcohol: Never - Substance Use History Substance History: Active Abuse - Substance Use Type Marijuana Route Used: Inhalation Reason for Use: Sleep Comment: also helps with appetite - Travel History Recent Travel in the [place] Within the Last 8 Weeks: No Recent Travel Out of the Country Within the Last 8 Weeks: No - Immunization History Tetanus Immunization: Unsure Hx Influenza Vaccine This Season: Yes <Jamey Ramseycey - Last Filed: 07/19/18 14:16> - Medical History Medical History: Medical History (Last Reviewed 07/19/18 @ 11:21 by Laura Mcnulty, PT) Arthritis Diabetes mellitus H/O: hysterectomy Hypertension Leukemia Ovarian cancer Seizure - Surgical History Surgical History: Surgical History (Last Reviewed 07/19/18 @ 11:21 by Laura Mcnulty, PT) H/O: section <IsabellbisiVonda - Last Filed: 07/19/18 19:01> Medications and Allergies Active Medications: Active Medications Acetaminophen (Tylenol) 650 mg PO Q8H PRN PRN Reason: PAIN 1-10 Last Admin: 07/18/18 03:05 Dose: 650 mg Hydrocodone Bitart/Acetaminophen (Thayer 5/325) 1 tab PO Q4H PRN PRN Reason: PAIN SCALE 1 TO 10 Last Admin: 07/19/18 12:39 Dose: 1 tab Alprazolam (Xanax) 0.5 mg PO Q8H PRN PRN Reason: ANXIETY Last Admin: 07/19/18 12:27 Dose: 0.5 mg Citalopram Hydrobromide (Celexa) 20 mg PO DAILY [facility] Last Admin: 07/19/18 08:26 Dose: 20 mg Dextrose (D50w Vial) 50 ml IV.PUSH UNSCH PRN PRN Reason: PER HYPOGLYCEMIA PROTOCOL Enoxaparin Sodium (Lovenox Inj) 80 mg SQ Q12H [facility] Last Admin: 07/19/18 12:27 Dose: 80 mg Fentanyl (Duragesic 25 Mcg Patch.72hr) 1 patch T-DERMAL Q3D [facility] Last Admin: 07/18/18 12:42 Dose: 1 patch Glucagon (Glucagon Inj) 1 mg OTHER PRN PRN PRN Reason: for Hypoglycemia Protocol Sodium Chloride (1/2 Normal Saline Inj) 1,000 mls @ 75 mls/hr IV.CONT .[id number] [facility] Last Admin: 07/19/18 08:01 Dose: Not Given Insulin Aspart (Novolog Insulin Correctional Sugar Inj) 0 unit SQ ACHS [facility]; Protocol Last Admin: 07/19/18 13:29 Dose: 9 unit Levetiracetam (Keppra) 500 mg PO TID [facility] Last Admin: 07/19/18 12:27 Dose: 500 mg Nifedipine (Procardia Xl) 30 mg PO DAILY [facility] Last Admin: 07/19/18 08:26 Dose: 30 mg Pantoprazole Sodium (Protonix) 20 mg PO DAILY [facility] Last Admin: 07/19/18 08:26 Dose: 20 mg Patch Removal (Remove Old Patch) 1 each T-DERMAL Q3D [facility] Propranolol HCl (Inderal) 20 mg PO BID [facility] Last Admin: 07/19/18 08:26 Dose: 20 mg Sennosides (Senokot) 17.2 mg PO Q12H PRN PRN Reason: Moderate Constipation Last Admin: 07/19/18 12:27 Dose: 17.2 mg Sodium Chloride (Ns Flush) 2 ml IV.FLUSH PRN PRN PRN Reason: FLUSH AFTER USING IV ACCESS <Leigh Ramsey - Last Filed: 07/19/18 14:16> Active Medications: Active Medications Acetaminophen (Tylenol) 650 mg PO Q8H PRN PRN Reason: PAIN 1-10 Last Admin: 07/18/18 03:05 Dose: 650 mg Hydrocodone Bitart/Acetaminophen (Thayer 5/325) 1 tab PO Q4H PRN PRN Reason: PAIN SCALE 1 TO 10 Last Admin: 07/19/18 17:02 Dose: 1 tab Alprazolam (Xanax) 0.5 mg PO Q8H PRN PRN Reason: ANXIETY Last Admin: 07/19/18 12:27 Dose: 0.5 mg Citalopram Hydrobromide (Celexa) 20 mg PO DAILY [facility] Last Admin: 07/19/18 08:26 Dose: 20 mg Dextrose (D50w Vial) 50 ml IV.PUSH UNSCH PRN PRN Reason: PER HYPOGLYCEMIA PROTOCOL Enoxaparin Sodium (Lovenox Inj) 80 mg SQ Q12H [facility] Last Admin: 07/19/18 12:27 Dose: 80 mg Fentanyl (Duragesic 25 Mcg Patch.72hr) 1 patch T-DERMAL Q3D [facility] Last Admin: 07/18/18 12:42 Dose: 1 patch Glucagon (Glucagon Inj) 1 mg OTHER PRN PRN PRN Reason: for Hypoglycemia Protocol Sodium Chloride (1/2 Normal Saline Inj) 1,000 mls @ 75 mls/hr IV.CONT .[id number] [facility] Last Admin: 07/19/18 17:02 Dose: 75 mls/hr Insulin Aspart (Novolog Insulin Correctional Sugar Inj) 0 unit SQ ACHS [facility]; Protocol Last Admin: 07/19/18 17:00 Dose: Not Given Levetiracetam (Keppra) 500 mg PO TID [facility] Last Admin: 07/19/18 12:27 Dose: 500 mg Nifedipine (Procardia Xl) 30 mg PO DAILY [facility] Last Admin: 07/19/18 08:26 Dose: 30 mg Pantoprazole Sodium (Protonix) 20 mg PO DAILY [facility] Last Admin: 07/19/18 08:26 Dose: 20 mg Patch Removal (Remove Old Patch) 1 each T-DERMAL Q3D [facility] Propranolol HCl (Inderal) 20 mg PO BID [facility] Last Admin: 07/19/18 08:26 Dose: 20 mg Sennosides (Senokot) 17.2 mg PO Q12H PRN PRN Reason: Moderate Constipation Last Admin: 07/19/18 12:27 Dose: 17.2 mg Sodium Chloride (Ns Flush) 2 ml IV.FLUSH PRN PRN PRN Reason: FLUSH AFTER USING IV ACCESS <Vonda Estrada - Last Filed: 07/19/18 19:01> Allergies Allergy/AdvReac Type Severity Reaction Status Date / Time ciprofloxacin Allergy Severe Swelling Verified 07/17/18 20:16 penicillin G Allergy Severe RASH Verified 07/17/18 20:16 clindamycin Allergy Intermediate FLU SX Verified 07/17/18 20:16 hydroxychloroquine Allergy Intermediate FLU SX Verified 07/17/18 20:16 gabapentin Allergy Mild Rash Verified 07/17/18 20:16 nitrofurantoin AdvReac Severe N&V Verified 07/17/18 20:16 Home Medications Medication Instructions Recorded Confirmed Type alprazolam [Xanax] 1 mg PO TID 06/29/18 07/17/18 History citalopram 20 mg PO DAILY 06/29/18 07/17/18 History hydrocodone-acetaminophen [Thayer] 1 tab PO Q4-6H PRN 06/29/18 07/17/18 History levetiracetam [Keppra] 500 mg PO TID 06/29/18 07/17/18 History nifedipine 30 mg PO DAILY 06/29/18 07/17/18 History ondansetron HCl [Zofran] 4 mg PO BID PRN 06/29/18 07/17/18 History pantoprazole [Protonix] 20 mg PO DAILY 06/29/18 07/17/18 History propranolol 20 mg PO BID 06/29/18 07/17/18 History spironolactone 25 mg PO DAILY 06/29/18 07/17/18 History metformin 500 mg PO BID 07/19/18 07/19/18 History Exam Vital signs: Vital Signs 07/18/18 14:53 07/18/18 16:00 07/18/18 18:13 Temperature 97.3 F L 97.3 F L 98.0 F Pulse Rate 83 83 97 H Respiratory Rate 18 16 18 Blood Pressure 145/69 H 145/69 H 144/91 H Pulse Oximetry 99 07/18/18 20:00 07/19/18 00:00 07/19/18 00:07 Temperature 98.3 F 99.1 F 99 F Pulse Rate 100 H 109 H 109 H Respiratory Rate 16 16 17 Blood Pressure 142/73 H 127/66 127/66 Pulse Oximetry 99 97 97 07/19/18 00:30 07/19/18 04:00 07/19/18 04:15 Temperature 98.6 F 98.8 F 98.8 F Pulse Rate 100 H 83 83 Respiratory Rate 17 16 17 Blood Pressure 161/81 H 113/55 L 113/55 L Pulse Oximetry 100 98 98 07/19/18 08:00 07/19/18 12:00 Temperature 97.6 F 97.6 F Pulse Rate 107 H 83 Respiratory Rate 16 16 Blood Pressure 147/67 H 118/59 L Pulse Oximetry 98 96 Intake & Output 07/18/18 07/19/18 07/19/18 18:59 06:59 18:59 Intake Total 1400 / 1400 0 / 0 100 / 100 Balance 1400 / 1400 0 / 0 100 / 100 Weight 76.1 kg Intake: IV 1000 / 1000 100 / 100 1/2 Normal Saline Inj 1,000 ML 1000 / 1000 @ 75 mls/hr IV.CONT .[id number] [facility] Rx#:[id number] Magnesium Sulfate 1 gm/D5W 100 100 / 100 ml Premix 100 ML @ 100 mls/hr IV.SIG Q1H [facility] Rx#:[id number] Intake (Blood Product) Amt 400 / 400 0 / 0 Rbc As-3 Leukoreduced Unit 0 / 0 [id number] Rbc As-3 Leukoreduced Unit 400 / 400 [id number] Other: # Voids 5 Date of Last Bowel Movement 07/17/18 07/17/18 07/17/18 - Constitutional no acute distress - Routine HEENT Exam Head: Present: normocephalic - Routine Respiratory Exam Present: CTA bilaterally. Absent: accessory muscle use - Routine Cardiovascular Exam Present: RRR - Routine Abdominal Exam Present: soft, normoactive bowel sounds. Absent: tenderness, distended, guarding, firm - Routine Skin Exam Present: dry, warm - Routine Neurological Exam Present: alert <Ramsey,Leigh - Last Filed: 07/19/18 14:16> Vital signs: Vital Signs 07/18/18 20:00 07/19/18 00:00 07/19/18 00:07 Temperature 98.3 F 99.1 F 99 F Pulse Rate 100 H 109 H 109 H Respiratory Rate 16 16 17 Blood Pressure 142/73 H 127/66 127/66 Pulse Oximetry 99 97 97 07/19/18 00:30 07/19/18 04:00 07/19/18 04:15 Temperature 98.6 F 98.8 F 98.8 F Pulse Rate 100 H 83 83 Respiratory Rate 17 16 17 Blood Pressure 161/81 H 113/55 L 113/55 L Pulse Oximetry 100 98 98 07/19/18 08:00 07/19/18 12:00 07/19/18 15:55 Temperature 97.6 F 97.6 F 97.9 F Pulse Rate 107 H 83 92 H Respiratory Rate 16 16 16 Blood Pressure 147/67 H 118/59 L 125/61 Pulse Oximetry 98 96 97 Intake & Output 07/19/18 07/19/18 07/20/18 06:59 18:59 06:59 Intake Total 0 / 0 100 / 100 Balance 0 / 0 100 / 100 Weight 76.1 kg Intake: IV 100 / 100 Magnesium Sulfate 1 gm/D5W 100 100 / 100 ml Premix 100 ML @ 100 mls/hr IV.SIG Q1H [facility] Rx#:[id number] Intake (Blood Product) Amt 0 / 0 Rbc As-3 Leukoreduced Unit 0 / 0 [id number] Other: # Voids 5 5 Date of Last Bowel Movement 07/17/18 07/17/18 <Vonda Estrada - Last Filed: 07/19/18 19:01> Results - Labs CBC & Chem 7: 07/19/18 06:33 07/19/18 06:35 Labs: Laboratory Results - last 24 hr 07/18/18 07/18/18 07/18/18 12:01 17:12 20:39 WBC RBC Hgb Hct MCV MCH MCHC RDW Plt Count MPV Prelim Diff (Auto) Neut % (Auto) Lymph % (Auto) Mcdowell % (Auto) Eos % (Auto) Baso % (Auto) Neut # (Auto) Lymph # (Auto) Mcdowell # (Auto) Eos # (Auto) Baso # (Auto) WBC Differential Seg Neuts % (Manual) Band Neuts % (Manual) Lymphocytes % (Manual) Monocytes % (Manual) Eosinophils % (Manual) Basophils % (Manual) Abs Neuts (Manual) Differential Comment Platelet Estimate Platelet Morphology Sodium Potassium Chloride Carbon Dioxide Anion Gap BUN Creatinine Estimated GFR POC Glucose 143 H 209 H Random Glucose Calcium Magnesium Iron TIBC % Saturation Ferritin Lactate Dehydrogenase C-Reactive Protein MTS Gel Crossmatch See Detail 07/19/18 07/19/18 07/19/18 06:33 06:35 08:25 WBC 2.7 L RBC 4.21 Hgb 9.5 L D Hct 29.7 L MCV 70.6 L MCH 22.6 L MCHC 32.0 RDW 22.9 H Plt Count 480 H MPV 6.9 L Prelim Diff (Auto) Slide review pending Neut % (Auto) 31.4 Lymph % (Auto) 56.2 H Mcdowell % (Auto) 9.5 H Eos % (Auto) 2.6 Baso % (Auto) 0.3 Neut # (Auto) 0.9 L Lymph # (Auto) 1.5 Mcdowell # (Auto) 0.3 Eos # (Auto) 0.1 Baso # (Auto) 0.0 WBC Differential Manual diff final Seg Neuts % (Manual) 34 Band Neuts % (Manual) 2 Lymphocytes % (Manual) 51 H Monocytes % (Manual) 10 H Eosinophils % (Manual) 2 Basophils % (Manual) 1 Abs Neuts (Manual) 1.0 L Differential Comment . Platelet Estimate High H Platelet Morphology Normal Sodium 141 Potassium 3.3 L Chloride 103 Carbon Dioxide 30.1 Anion Gap 8 BUN 8 Creatinine 0.59 Estimated GFR Greater than 89 POC Glucose 125 H Random Glucose 111 H Calcium 8.0 L Magnesium 1.2 L Iron 42 L TIBC 262 % Saturation 16.0 L Ferritin 48 Lactate Dehydrogenase 153 C-Reactive Protein 11.00 H MTS Gel Crossmatch 07/19/18 13:24 WBC RBC Hgb Hct MCV MCH MCHC RDW Plt Count MPV Prelim Diff (Auto) Neut % (Auto) Lymph % (Auto) Mcdowell % (Auto) Eos % (Auto) Baso % (Auto) Neut # (Auto) Lymph # (Auto) Mcdowell # (Auto) Eos # (Auto) Baso # (Auto) WBC Differential Seg Neuts % (Manual) Band Neuts % (Manual) Lymphocytes % (Manual) Monocytes % (Manual) Eosinophils % (Manual) Basophils % (Manual) Abs Neuts (Manual) Differential Comment Platelet Estimate Platelet Morphology Sodium Potassium Chloride Carbon Dioxide Anion Gap BUN Creatinine Estimated GFR POC Glucose 418 H Random Glucose Calcium Magnesium Iron TIBC % Saturation Ferritin Lactate Dehydrogenase C-Reactive Protein MTS Gel Crossmatch <Leigh Ramsey - Last Filed: 07/19/18 14:16> - Labs CBC & Chem 7: 07/19/18 06:33 07/19/18 06:35 Labs: Laboratory Results - last 24 hr 07/18/18 07/18/18 07/19/18 12:01 20:39 06:33 WBC 2.7 L RBC 4.21 Hgb 9.5 L D Hct 29.7 L MCV 70.6 L MCH 22.6 L MCHC 32.0 RDW 22.9 H Plt Count 480 H MPV 6.9 L Prelim Diff (Auto) Slide review pending Neut % (Auto) 31.4 Lymph % (Auto) 56.2 H Mcdowell % (Auto) 9.5 H Eos % (Auto) 2.6 Baso % (Auto) 0.3 Neut # (Auto) 0.9 L Lymph # (Auto) 1.5 Mcdowell # (Auto) 0.3 Eos # (Auto) 0.1 Baso # (Auto) 0.0 WBC Differential Manual diff final Seg Neuts % (Manual) 34 Band Neuts % (Manual) 2 Lymphocytes % (Manual) 51 H Monocytes % (Manual) 10 H Eosinophils % (Manual) 2 Basophils % (Manual) 1 Abs Neuts (Manual) 1.0 L Differential Comment . Platelet Estimate High H Platelet Morphology Normal Sodium Potassium Chloride Carbon Dioxide Anion Gap BUN Creatinine Estimated GFR POC Glucose 209 H Random Glucose Calcium Magnesium Iron TIBC % Saturation Ferritin Lactate Dehydrogenase C-Reactive Protein MTS Gel Crossmatch See Detail 07/19/18 07/19/18 07/19/18 06:35 08:25 13:24 WBC RBC Hgb Hct MCV MCH MCHC RDW Plt Count MPV Prelim Diff (Auto) Neut % (Auto) Lymph % (Auto) Mcdowell % (Auto) Eos % (Auto) Baso % (Auto) Neut # (Auto) Lymph # (Auto) Mcdowell # (Auto) Eos # (Auto) Baso # (Auto) WBC Differential Seg Neuts % (Manual) Band Neuts % (Manual) Lymphocytes % (Manual) Monocytes % (Manual) Eosinophils % (Manual) Basophils % (Manual) Abs Neuts (Manual) Differential Comment Platelet Estimate Platelet Morphology Sodium 141 Potassium 3.3 L Chloride 103 Carbon Dioxide 30.1 Anion Gap 8 BUN 8 Creatinine 0.59 Estimated GFR Greater than 89 POC Glucose 125 H 418 H Random Glucose 111 H Calcium 8.0 L Magnesium 1.2 L Iron 42 L TIBC 262 % Saturation 16.0 L Ferritin 48 Lactate Dehydrogenase 153 C-Reactive Protein 11.00 H MTS Gel Crossmatch 07/19/18 17:43 WBC RBC Hgb Hct MCV MCH MCHC RDW Plt Count MPV Prelim Diff (Auto) Neut % (Auto) Lymph % (Auto) Mcdowell % (Auto) Eos % (Auto) Baso % (Auto) Neut # (Auto) Lymph # (Auto) Mcdowell # (Auto) Eos # (Auto) Baso # (Auto) WBC Differential Seg Neuts % (Manual) Band Neuts % (Manual) Lymphocytes % (Manual) Monocytes % (Manual) Eosinophils % (Manual) Basophils % (Manual) Abs Neuts (Manual) Differential Comment Platelet Estimate Platelet Morphology Sodium Potassium Chloride Carbon Dioxide Anion Gap BUN Creatinine Estimated GFR POC Glucose 102 Random Glucose Calcium Magnesium Iron TIBC % Saturation Ferritin Lactate Dehydrogenase C-Reactive Protein MTS Gel Crossmatch <Vonda Estrada - Last Filed: 07/19/18 19:01> Assessment and Plan (1) Anemia Status: Acute Code(s): D64.9 - Anemia, unspecified - Plan This patient is a 57-year-old female who was admitted to [facility] on 07/17/2018 with a complaint of generalized weakness, generalized pain, dizziness, vomiting and diarrhea. Patient states onset over last 10-12 days. Patient's medical history significant for diabetes, leukemia, chronic skin infections and hypertension. Also history of DVT left femoral vein. Upon consultation patient endorses no noted bleeding in stool, no hematocrit emesis or dark stools. She states her last colonoscopy was 8-10 years ago and there were normal findings per her recollection. States she normally moves her bowels once every other day soft and formed to loose.Patient denies abdominal surgeries, use of NSAIDs, EtOH or tobacco use. Denies any known family history of gastrointestinal disorders. She endorses occasional heartburn with difficulty swallowing solid foods and medications. States that she will suck on a few ice chips to decrease the swelling and make swallowing easier. She denies choking or coughing with eating or drinking. Our service has been consulted to evaluate patient's present anemia. Hemoglobin 9.5 hematocrit 29.7 Anemia Patient denies any noted bleeding. Hematocrit 29.7 Hemoglobin 9.5 07/17/2018 CT abdomen and pelvis revealed the following findings : 1. No obstruction or acute inflammatory changes are seen in the abdomen or pelvis. 2. There is apparent nonobstructing DVT involving the visualized left femoral artery. Bilateral lower extremity venous duplex Doppler recommended. 3. An apparent cyst of the left vulva/vagina only partly seen. 4. No evidence of metastatic disease or recurrent tumor. 5. Enlarged and fatty infiltrated liver. 6. Small hiatal hernia. Plan -N.p.o. after midnight -GoLYTELY prep -Obtain consent for EGD and colonoscopy -EGD and colonoscopy planned for the a.m. -Hold a.m. dose of Lovenox -Monitor for bleeding -Monitor labs -Supportive care -Further recommendations to follow This patient has been seen by myself and Dr. Estrada and this note is written on her behalf - Attending Attestation Dr. Estrada <Leigh Ramsey - Last Filed: 07/19/18 14:16> (1) Anemia Status: Acute Code(s): D64.9 - Anemia, unspecified - Attending Attestation seen, examined agree with above <Vonda Estrada - Last Filed: 07/19/18 19:01> <Leigh Ramsey - Last Filed: 07/19/18 14:16> (1) Anemia Qualifiers: Anemia type: unspecified type Qualified Code(s): D64.9 - Anemia, unspecified <Vonda Estrada - Last Filed: 07/19/18 19:01> (1) Anemia Qualifiers: Anemia type: unspecified type Qualified Code(s): D64.9 - Anemia, unspecified
--- NOTE | 2018-07-19 16:13 | P.DIET ---
Nutritional Evaluation Type of nutrition evaluation: initial Nutrition screening: Weight Loss > 10 lbs Screening comments: reports poor appetite Subjective Oral Diet Tolerance Assessment Indicates: Swallowing problems Subjective Comments: HT 165.01cm, from previous admission here, used for assessment Objective - Diagnosis generalized weakness, anemia - Objective % IBW: 134 Body Weight Used for Calculations: IBW (56.8 kg) Energy Needs - Lower Range (kCal/kg): 25 Energy Needs - Upper Range (kCal/kg): 30 Lower Limit kCal/kg (kCals): 1,420 Upper Limit kCal/kg (kCals): 1,704 Lower Limit Protein Factor (Grams per Kg): 1.3 Upper Limit Protein Factor (Grams per Kg): 1.6 Lower Protein Needs (Protein): 74 Upper Protein Needs (Protein): 91 Dietitian Reviewed in Medical Record: Current diet, Curent medications, Intake & Output, Labs, Medical history Diet Order: Clear Liquid Oral Diet Intake Amount: Poor <50% Objective Comments: PMH include: Arthritis, DM, hysterectomy, HTN, Leukemia, Ovarian Cancer Stage II , Seizure Random Glucose 111, POC 125, 418, CRP 11.0 LBM 07/17 Assessment Assessment: Pt is at nutritional risk r/t reported wt loss. Monitor GI Recs-pt NPO after midnight for EGD and colonoscopy. Monitor diet advancement. Assess need for an oral nutritional supplement as appropriate. Labs reviewed. Dietitian following. Recommendations: 1. Monitor GI Recs 2. Monitor diet advancement 3. Assess need for an oral nutritional supplement as appropriate 4. Dietitian following Dietitian to Monitor: Lab values, Glucose level, Intake & Output, Weight change , PO Intake, Diet advancement, Medical course
[2018-07-20] MEDS: Enoxaparin Inj 80 MG/0.8 ML Syringe SQ SCH (01:09)
[2018-07-20] MEDS: Insulin NovoLOG Aspart Correctional Sugar Inj SQ SCH ×4 (01:12→21:15)
[2018-07-20] MEDS ORDERED: Chlorhexidine Gluconate 2% 1 Pack (2 Cloths) TOPICAL ONE (04:33)
[2018-07-20] MEDS ORDERED: Sodium Chlor 0.9% Inj 500 ML IV.SIG SCH (05:00)
[2018-07-20 05:57] LABS: Baso % (Auto) 0.4 % (0.0-2.0); Eos % (Auto) 1.8 % (0.0-4.0); Hematocrit 31.4 % (35.0-46.0); Hemoglobin 10.1 gm/dL (11.6-15.3); Lymph # (Auto) 1.5 th/mm3 (1.0-4.8); Lymph % (Auto) 56.4 % (9.0-44.0); Mean Corpuscular HGB Conc 32.1 % (32.0-36.0); Mean Corpuscular Hemoglobin 22.7 pg (27.0-34.0); Mean Corpuscular Volume 70.7 fL (80.0-100.0); Mean Platelet Volume 6.8 fL (7.0-11.0); Mono # (Auto) 0.3 th/mm3 (0.0-0.9); Mono % (Auto) 10.1 % (0.0-8.0); Neut # (Auto) 0.8 th/mm3 (1.8-7.7); Neut % (Auto) 31.3 % (16.0-70.0); Platelet Count 499 th/mm3 (150-450); Red Blood Count 4.44 mil/mm3 (4.00-5.30); Red Cell Distribution Width 23.3 % (11.6-17.2); White Blood Count 2.7 th/mm3 (4.0-11.0)
[2018-07-20 06:07] LABS: Anion Gap 7 meq/L (5-15); Blood Urea Nitrogen 9 mg/dL (7-18); Calcium 8.1 mg/dL (8.5-10.1); Chloride 104 meq/L (98-107); Glomerular Filtration Rate Greater Than 89 mL/min (>89); Glucose,Random 117 mg/dL (74-106); Magnesium 1.5 mg/dL (1.5-2.5); Sodium 140 meq/L (136-145)
[2018-07-20] MEDS: ALPRAZolam 0.5 MG Tablet PO PRN (06:22)
[2018-07-20 07:53] LABS: Lymphocytes 52 % (9-44); Monocytes 13 % (0-8)
[2018-07-20 07:54] LABS: Platelet Morphology Normal (Normal)
[2018-07-20] MEDS: Sodium Chloride 0.45 % Inj 1,000 ML IV.CONT SCH (08:30)
[2018-07-20] MEDS: Pantoprazole Sodium 20 MG DR Tablet PO SCH (09:02)
[2018-07-20] MEDS: Citalopram 20 MG Tablet PO SCH (09:02)
[2018-07-20] MEDS: levETIRAcetam 500 MG Tablet PO SCH ×4 (09:02→18:10)
--- NOTE | 2018-07-20 12:17 | P.PNIM ---
Subjective Interval history: Follow up: Generalized weakness, Nausea/vomiting/diarrhea, Anemia, Left leg DVT, Rheumatoid Arthritis, T-granular lymphocyte leukemia (CLL) , Leukopenia and HTN Patient is S/P upper endoscopy today with Dr. Estrada Patient was unable to have coloscopy due to inadequate prep - solid stool present Physical Exam Vital signs: Last Vital Signs Temp 98.0 F 07/20/18 08:00 Pulse 108 H 07/20/18 08:00 Resp 14 07/20/18 08:00 BP 140/60 07/20/18 08:00 Pulse Ox 96 07/20/18 08:00 Narrative: General: NAD, AAOx3 Chest: CTA Cardiac: Regular Abd: +BS, soft ND/NT Ext: LLE edema Results Labs CBC & Chem 7: 07/20/18 05:00 07/20/18 05:00 Assessment and Plan Assessment (1) Anemia: Code(s): D64.9 - Anemia, unspecified Status: Acute Plan Generalized weakness Nausea/vomiting/diarrhea Anemia - Pt is a 57 y/o WF with stage II ovarian cancer, T-granular lymphocyte leukemia (CLL), chronic neutropenia, RA, diabetes, HTN and chronic pain. - She presented to the ED at [facility] on 07/17/18 for evaluation of generalized weakness, generalized pain, dizziness, vomiting, diarrhea. Patient states her symptoms have been ongoing for 12 days and have been worsening. She reported some shortness of breath and pain that says is everywhere. She reported 2 episodes of vomiting and 2 episodes of diarrhea today. - In the ED she was found to have hemoglobin 7.6, WBC count 2.1 - Pt s/p transfusion with 2 units PRBCs with Lasix in between on 07/18/18 with improvement in Hgb to 9.5/Hct 29.7 07/20/18. - repeat H?H 07/20/18 Hgb 10.1/Hct 31.4 - Monitor labs closely - Case was discussed with Hematology, and they feel that the pts microcytic anemia is likely related to iron deficiency and/or occult blood loss. - Iron studies were checked this morning but this was post-transfusion. Serum Fe 42, TIBC 262, % Sat 16, Ferritin 48. - Stool for Hemoccult is ordered - GI consultation, initially planned for EGD/colonoscopy today 07/20/2018. Patient underwent EGD but unable to have colonoscopy due to inadequate prep and solid stool present in colon. -Dr. Richardson discussed with Dr. Estrada plan for colonoscopy tomorrow 07/21/2018 - PT evaluation, Patient ambulated 80 feet. PT recommend DC home with no PT Left leg DVT - In the ED pt was found to have a non occlusive DVT in the left leg. - Chest CTA (07/17/18) 1. No pulmonary embolus. 2. Mild bilateral atelectasis. 3. No significant change subcentimeter nodule of the left lower lobe, felt to be benign. 4. Coronary artery calcification. - Pt received transfusion with PRBCs on 07/18/18 - Pt started Lovenox 80mg SQ BID on 07/18/18 - Oncology is following. Per oncology anticipate switching to newer oral anticoagulant once patient's hemoglobin stabilized Rheumatoid Arthritis - Pain control PRN. Pt reports that she was on a Fentanyl patch 25mcg Q3D at home and [place] PRN. - Pt was resumed Fentanyl patch and [place] 5/325 Q4H PRN on 07/18 but she does not feel that this is helping. Concern for narcotic seeking behavior - CRP is 11.0 T-granular lymphocyte leukemia (CLL) Leukopenia - Pt follows with Dr. Leandro Will, initially diagnosed in 2016 - Pt was initially offered Cytoxan, which she declined and was started on Cyclosporine, but has been noncompliant with treatments and followups according to outpt records. - The last note from her Oncologist in 02/2018 reports that the pt decided to go on Hospice at that time but the pt report that her leukemia became stable andnshe was discharged from hospice. - Oncology, Dr. Zelaya, has been consulted and is following HTN - Home meds continued per med rec - Pt was being seen by [facility] for the last 5-6 months. Progress Note: Quality VTE Deep Vein Thrombosis/Pulmonary Embolism Present on Admission: No _ (1) Anemia Qualifiers: Anemia type: unspecified type Bone marrow failure anemia type: Chronic kidney disease stage: Folate deficiency anemia type: Hemolytic anemia type: Iron deficiency anemia type: Other causes of anemia: Vitamin B12 deficiency anemia type: Qualified Code(s): D64.9 - Anemia, unspecified
[2018-07-20] MEDS ORDERED: PEG 3350/E-Lyte Soln 4000 ML Bottle PO ONE (12:30)
--- NOTE | 2018-07-20 13:28 | GIPROC ---
[facility] [address] [facility]. [facility] [place], [id number] EGD PROCEDURE REPORT EXAM DATE: 07/20/2018 PATIENT NAME: Carolyn Vasquez MR #: [id number] BIRTHDATE: 1960 ATTENDING: Vonda Estrada MD ORDER #: [id number] VENEER TAPING MACHINE OPERATOR: Maxim Figueroa and Kati Malik STATUS: inpatient INDICATIONS: The patient is a 57 yr old female here for an EGD due to anemia PROCEDURE PERFORMED: EGD w/ biopsy MEDICATIONS: Per Anesthesia and None. TOPICAL ANESTHETIC: none CONSENT: The patient understands the risks and benefits of the procedure and understands that these risks include, but are not limited to: sedation, allergic reaction, infection, perforation and/or bleeding. Alternative means of evaluation and treatment include, among others: physical exam, x-rays, and/or surgical intervention. The patient elects to proceed with this endoscopic procedure. medical equipment was checked for proper function. Hand hygiene and appropriate measures for infection prevention was taken. After the risks, benefits and alternatives of the procedure were thoroughly explained, Informed consent was verified, confirmed and timeout was successfully executed by the treatment team. The patient was anesthetized with topical anesthesia and the Pentax [id number] endoscope was introduced through the mouth and advanced to the second portion of the duodenum. Retroflexed views revealed a hiatal hernia The gastroscope was then slowly withdrawn and removed. Gastritis antrum-biopsy esophagitis distal esophagus -biopsy duodenum normal-biopsy. ADVERSE EVENTS: There were no complications. IMPRESSIONS: 1. Gastritis antrum-biopsy esophagitis distal esophagus -biopsy duodenum normal-biopsy 2. Retroflexed views revealed a hiatal hernia RECOMMENDATIONS: 1. Await biopsy results. Biopsy results will not be ready for 7-10 days. If you don't hear from us in two weeks, call our office for biopsy results. 2. Begin feeding tomorrow 3. Continue PPI 4. Colonoscopy in am , if discharged can schedule op PATIENT CONDITION: stable DISPOSITION: Inpatient REPEAT EXAM: Return 1 year EGD Vonda Estrada MD eSigned: Vonda Estrada MD 07/20/2018 1:28 PM cc: PATIENT NAME: Carolyn Vasquez MR#: [id number]
[2018-07-20] MEDS ORDERED: Magnesium Citrate Liq 300 ML Bottle PO ONE ×3 (13:33→20:00)
--- NOTE | 2018-07-20 16:41 | P.PNONC ---
Subjective Interval history: Patient status post EGD, unable to have colonoscopy due to poor prep. She is lying in the bed crying and grimacing with reports of back pain. She twitches intermittently. Her is concerned that her pain and anxiety is not being adequately controlled. He reports she has been on Xanax for many years and she has been crying for days now. Objective Vital Signs/Intake & Output: Vital Signs 07/19/18 20:00 07/19/18 22:03 07/20/18 00:00 Temperature 98.8 F 99.5 F Pulse Rate 107 H 89 Respiratory Rate 20 20 20 Blood Pressure 128/61 124/60 Pulse Oximetry 97 96 07/20/18 04:00 07/20/18 08:00 07/20/18 12:00 Temperature 97.9 F 98.0 F 98.3 F Pulse Rate 94 H 103 H 86 Respiratory Rate 20 14 16 Blood Pressure 134/63 140/60 133/63 Pulse Oximetry 97 96 96 Intake & Output 07/19/18 07/20/18 07/20/18 18:59 06:59 18:59 Intake Total 100 / 100 0 / 0 1000 / 1000 Balance 100 / 100 0 / 0 1000 / 1000 Intake: IV 100 / 100 1000 / 1000 1/2 Normal Saline Inj 1,000 ML 1000 / 1000 @ 75 mls/hr IV.CONT .[id number] ERIKA Rx#:[id number] Magnesium Sulfate 1 gm/D5W 100 100 / 100 ml Premix 100 ML @ 100 mls/hr IV.SIG Q1H ERIKA Rx#:[id number] Oral 0 / 0 Other: # Voids 5 2 Date of Last Bowel Movement 07/17/18 07/17/18 Result Diagrams: 07/20/18 05:00 07/20/18 05:00 Laboratory Results: Laboratory Results - last 24 hr 07/19/18 07/19/18 07/20/18 17:43 22:20 05:00 WBC 2.7 L RBC 4.44 Hgb 10.1 L Hct 31.4 L MCV 70.7 L MCH 22.7 L MCHC 32.1 RDW 23.3 H Plt Count 499 H MPV 6.8 L Prelim Diff (Auto) Slide review pending Neut % (Auto) 31.3 Lymph % (Auto) 56.4 H Yates % (Auto) 10.1 H Eos % (Auto) 1.8 Baso % (Auto) 0.4 Neut # (Auto) 0.8 L Lymph # (Auto) 1.5 Yates # (Auto) 0.3 Eos # (Auto) 0.0 Baso # (Auto) 0.0 WBC Differential Manual diff final Seg Neuts % (Manual) 32 Band Neuts % (Manual) 1 Lymphocytes % (Manual) 52 H Monocytes % (Manual) 13 H Basophils % (Manual) 2 Abs Neuts (Manual) 0.9 L Differential Comment . Platelet Estimate High H Platelet Morphology Normal Sodium Potassium Chloride Carbon Dioxide Anion Gap BUN Creatinine Estimated GFR POC Glucose 102 137 H Random Glucose Calcium Magnesium Troponin I 07/20/18 07/20/18 07/20/18 05:00 06:00 08:22 WBC RBC Hgb Hct MCV MCH MCHC RDW Plt Count MPV Prelim Diff (Auto) Neut % (Auto) Lymph % (Auto) Yates % (Auto) Eos % (Auto) Baso % (Auto) Neut # (Auto) Lymph # (Auto) Yates # (Auto) Eos # (Auto) Baso # (Auto) WBC Differential Seg Neuts % (Manual) Band Neuts % (Manual) Lymphocytes % (Manual) Monocytes % (Manual) Basophils % (Manual) Abs Neuts (Manual) Differential Comment Platelet Estimate Platelet Morphology Sodium 140 Potassium 4.0 Chloride 104 Carbon Dioxide 29.0 Anion Gap 7 BUN 9 Creatinine 0.55 Estimated GFR Greater than 89 POC Glucose 146 H Random Glucose 117 H Calcium 8.1 L Magnesium 1.5 Troponin I Less than 0.02 L 07/20/18 11:53 WBC RBC Hgb Hct MCV MCH MCHC RDW Plt Count MPV Prelim Diff (Auto) Neut % (Auto) Lymph % (Auto) Yates % (Auto) Eos % (Auto) Baso % (Auto) Neut # (Auto) Lymph # (Auto) Yates # (Auto) Eos # (Auto) Baso # (Auto) WBC Differential Seg Neuts % (Manual) Band Neuts % (Manual) Lymphocytes % (Manual) Monocytes % (Manual) Basophils % (Manual) Abs Neuts (Manual) Differential Comment Platelet Estimate Platelet Morphology Sodium Potassium Chloride Carbon Dioxide Anion Gap BUN Creatinine Estimated GFR POC Glucose 135 H Random Glucose Calcium Magnesium Troponin I Culture Results: Microbiology 07/17/18 20:00 Aerobic Blood Culture - Preliminary Blood - Peripheral No growth in 3 days Anaerobic Blood Culture - Preliminary No growth in 3 days 07/17/18 19:55 Aerobic Blood Culture - Preliminary Blood - Peripheral No growth in 3 days Anaerobic Blood Culture - Preliminary No growth in 3 days Medications: Active Medications Generic Name Dose Route Start Last Admin Trade Name Freq PRN Reason Stop Dose Admin Acetaminophen 650 mg 07/18/18 02:55 07/18/18 03:05 Tylenol PO 650 mg Q8H PRN Administration PAIN 1-10 Hydrocodone Bitart/Acetaminophen 1 tab 07/18/18 12:23 07/20/18 09:08 Bath 5/325 PO 1 tab Q4H PRN Administration PAIN SCALE 1 TO 10 Citalopram Hydrobromide 20 mg 07/18/18 09:00 07/20/18 09:02 Celexa PO 20 mg DAILY ERIKA Administration Enoxaparin Sodium 80 mg 07/18/18 12:00 07/20/18 01:09 Lovenox Inj SQ 80 mg Q12H [facility] Administration Fentanyl 1 patch 07/18/18 13:00 07/18/18 12:42 Duragesic 25 Mcg Patch.72hr T-DERMAL 1 patch Q3D ERIKA Administration Sodium Chloride 1,000 mls @ 75 mls/hr 07/18/18 00:00 07/20/18 08:30 1/2 Normal Saline Inj IV.CONT Not Given .[id number] [facility] Insulin Aspart 0 unit 07/19/18 12:00 07/20/18 14:06 Novolog Insulin Correctional Sugar Inj SQ Not Given ACHS [facility] Protocol Levetiracetam 500 mg 07/18/18 09:00 07/20/18 14:58 Keppra PO 500 mg TID [facility] Administration Nifedipine 30 mg 07/18/18 09:00 07/20/18 09:02 Procardia Xl PO 30 mg DAILY ERIKA Administration Pantoprazole Sodium 20 mg 07/18/18 09:00 07/20/18 09:02 Protonix PO 20 mg DAILY ERIKA Administration Propranolol HCl 20 mg 07/18/18 09:00 07/20/18 09:02 Inderal PO 20 mg BID ERIKA Administration Sennosides 17.2 mg 07/17/18 23:31 07/19/18 12:27 Senokot PO 17.2 mg Q12H PRN Administration Moderate Constipation Sodium Chloride 2 ml 07/17/18 19:40 07/20/18 09:11 Ns Flush IV.FLUSH 2 ml PRN PRN Administration FLUSH AFTER USING IV ACCESS Objective Remarks: GENERAL: Chronically ill-appearing female patient, appears older than stated age , in no acute distress. Crying. SKIN: Warm and dry. HEAD: Normocephalic. EYES: No scleral icterus. No injection or drainage. NECK: Supple, trachea midline. CARDIOVASCULAR: Regular rate and rhythm without murmurs. RESPIRATORY: Breath sounds equal bilaterally. No accessory muscle use. GASTROINTESTINAL: Abdomen soft, non-tender, nondistended. EXTREMITIES: No cyanosis, or edema. MUSCULOSKELETAL: Adequate muscle tone. NEUROLOGICAL: No obvious focal deficit. Crying, does not answer many questions. PSYCHIATRIC: Crying; unable to assess insight and judgment. Assessment/Plan - Plan Recommendations: 1. DVT, continue therapeutic Lovenox. 2. Pain and anxiety management, we will defer to the attending. 3. Hemoglobin has improved, 10.1 today. 4. Status post EGD today which revealed gastritis and esophagitis. Patient scheduled for colonoscopy in the a.m. 5. We will sign off from a Heme/Onc standpoint. Kindly call if needed. - Attending Statement The exam, history, and the medical decision-making described in the above note were completed with the assistance of the mid-level provider. I reviewed and agree with the findings presented. I attest that I had a [id number] encounter with the patient on the same day, and personally performed and documented my assessment and findings in the medical record. Patient tearful and whimpering. Symptomatic from any chronic condition. 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 She presented with anemia and iron studies are consistent with iron deficiency. Trial of parenteral iron therapy. Her hemoglobin is stable. GI is continuing evaluation for GI loss of iron. She is advised to follow-up with her primary oncologist. No specific therapy is required for the T-cell LGL. geek squad manager has been consulted. The case was discussed with the primary team. Consider consulting palliative care to assist with her various symptoms. Hematology will sign off at present. We will be available as needed.
--- NOTE | 2018-07-20 18:37 | ECG ---
Date Performed: 07/20/2018 Time Performed: 06:37:24 PTAGE: 57 years EKG: Sinus tachycardia Normal ECG except for rate NO PREVIOUS TRACING Since the previous tracing, no significant change noted DOCTOR: Ugo Vazquez Interpretating Date/Time 07/20/2018 18:35:07
[2018-07-20] MEDS ORDERED: Iron Sucrose Inj 100 MG in Sodium Chlor 0.9% Inj 100 ML IV.SIG ONE (20:00)
[2018-07-21] MEDS ORDERED: Chlorhexidine Gluconate 2% 1 Pack (2 Cloths) TOPICAL ONE (06:00)
[2018-07-21] MEDS ORDERED: Sodium Chlor 0.9% Inj 500 ML IV.SIG SCH (06:00)
[2018-07-21] MEDS ORDERED: Metoprolol Tartrate 25 MG Tablet PO ONE (06:00)
[2018-07-21] MEDS: Sodium Chloride 0.45 % Inj 1,000 ML IV.CONT SCH (07:45)
--- NOTE | 2018-07-21 10:16 | GIPROC ---
[facility] [address] [facility]. [facility], [id number] COLONOSCOPY PROCEDURE REPORT EXAM DATE: 07/21/2018 PATIENT NAME: Carolyn Vasquez MR #: [id number] BIRTHDATE: 1960 ENDOSCOPIST: Vonda Estrada MD ORDER #: [id number] DRAPERY CUTTER: Latasha Burch and Maren Maldonado STATUS: inpatient INDICATIONS: The patient is a 57 yr old female here for a colonoscopy due to anemia , constipation PROCEDURE PERFORMED: Colonoscopy with biopsy MEDICATIONS: Per Anesthesia and None. PREP QUALITY: good PREP TYPE:Other: ESTIMATED BLOOD LOSS: None CONSENT: The patient understands the risks and benefits of the procedure and understands that these risks include, but are not limited to: sedation, allergic reaction, infection, perforation and/or bleeding. Alternative means of evaluation and treatment include, among others: physical exam, x-rays, and/or surgical intervention. The patient elects to proceed with this endoscopic procedure. medical equipment was checked for proper function. Hand hygiene and appropriate measures for infection prevention was taken. After the risks, benefits and alternatives of the procedure were thoroughly explained, Informed consent was verified, confirmed and timeout was successfully executed by the treatment team. A digital exam revealed hemorrhoids The Pentax [id number] endoscope was introduced through the anus and advanced to the cecum, which was identified by both the appendix and ileocecal valve. The instrument was then slowly withdrawn as the colon was fully examined. COLON FINDINGS: Polyp splenic flexure-7 mm cold biopsy with complete removal. Retroflexed views revealed internal hemorrhoids and Retroflexed views revealed small internal hemorrhoids The scope was then completely withdrawn from the patient and the procedure terminated. PROCEDURE WITHDRAWAL TIME:6minutes ADVERSE EVENTS: There were no complications. IMPRESSIONS: 1. Polyp splenic flexure-7 mm cold biopsy with complete removal 2. Retroflexed views revealed internal hemorrhoids 3. Retroflexed views revealed small internal hemorrhoids 4. Revealed hemorrhoids RECOMMENDATIONS: 1. Benefiber 2 tsp daily 2. Probiotics from any [facility] or health food store 3. Yearly rectal exams RECALL: Return 5 years Colonoscopy Vonda Estrada MD eSigned: Vonda Estrada MD 07/21/2018 10:15 AM cc: PATIENT NAME: Carolyn Vasquez MR#: [id number]
--- NOTE | 2018-07-21 10:45 | P.CONPAL ---
Consult Service: Palliative Care Requesting Physician: Brissa Zelaya Reason for Consult: a. To assist with evaluation and management of symptoms including:Pain, anxiety b. To assist medical decision maker(s) with: better understanding of current medical conditions; weighing benefits/burdens of medical treatment options; making medical treatment decisions. 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 Patient presented to the emergency room on 07/17/18 for evaluation of worsening weakness , shortness of breath, generalized pain, dizziness, vomiting and diarrhea. Symptoms had been ongoing for 12 days prior to presentation to the emergency room. Patient was diagnosed with T-cell LGL in 2016. She followed with oncologist Dr. Will and Dr. Felder. Patient has had chronic leukopenia/ neutropenia from leukemia. ER course: * Vital signs: Temperature 98.8, pulse 131, respirations 18, BP 148/76, O2 saturation 98% * Laboratory workup revealed WBC 3.1, hemoglobin 7.6, hematocrit 24.3, platelet count 466, PT 10.0, INR 1.0, d-dimer quant 1.94, sodium 141, potassium 3.3, BUN/ creatinine 12/0.82, random glucose 253, lactic acid 2.9, calcium 7.4, total bilirubin 0.1, AST 1 3, ALT 11, troponin 0.03, total protein 5.8, albumin 2.2, TSH 0.301 * EKG reveals sinus tachycardia moderate ST depression. * Chest x-ray revealed no evidence of acute cardiopulmonary disease. * Head CT negative for any abnormality * Chest CTA revealed no pulmonary embolus, mild bilateral lateral atelectasis and coronary artery calcification. No significant change subcentimeter nodule of the left lower lobe, felt to be benign. * CT abdomen/pelvis revealed nonobstructing DVT involving the visualized left femoral artery. Bilateral lower extremity venous duplex Doppler recommended. An apparent cyst of the left foot L4, vagina only partly seen. No evidence of metastatic disease or recurrent tumor. Enlarged and fatty infiltrated liver. Small hiatal hernia. * Venous Doppler to bilateral lower extremities revealed fairly extensive incompletely occlusive thrombus in the left leg * Urinalysis negative for leukocyte esterase and negative for nitrates * Blood cultures collected showing - no growth in 4 days. * Patient admitted for further evaluation and treatment Oncology Dr. Zelaya consulted on 07/18/18 for evaluation and management of patient with T-cell LGL leukemia and a new left lower extremity deep vein thrombosis, recommended transfusion, iron studies and stool for Hemoccult, atenolol mildly for treatment of lower extremity DVT. 2 units PRBC transfused on 07/18/18. GI Dr. Estrada consulted on 07/19/18 to evaluate patient with generalized weakness and anemia, recommended EGD and colonoscopy. Patient underwent EGD with biopsy on 07/20/18 with no complications-procedure revealed gastritis and esophagitis. Colonoscopy was not performed due to inadequate preparation. Patient underwent colonoscopy on 07/21/18 which revealed internal hemorrhoids and polyp which was completely removed. Palliative care consulted to assist with symptom management and establishment of goals of medical treatment. Patient seen and examined in the room in the presence of his significant other Anastasiya Lara. Patient is alert, oriented to self, place and situation. Patient complaining of pain to the left lower extremity and arthritic pain. Rating pain 7 out of 10. Patient occasionally moaning from pain. Obtained psychosocial, past medical history and events leading to this hospitalization. Patient`s significant other tends to answer most of the questions for patient. According to patient's significant other, patient is completed and signed POA papers through [facility] though he does not recollect having papers notarized. He is also unsure if patient ever completed a living will. Patient verbalizing that in the event that she is incapacitated she would want his significant other Marco Anastasiya to serve as he healthcare surrogate and her son Saima Vivas as her alternate healthcare surrogate. Addressed CODE STATUS, discussed CPR complications, limitations and benefits. Patient with the support of his significant other elected alternate code-she does not want chest compressions, but would like to be shocked, have ACLS drugs administered and intubated. Patient`s spouse states that he is not yet ready to lose her. Inquired more regarding admission to hospice under [facility]. It appears that patient had enrolled in hospice services for pain management because her primary care physician was no longer able to prescribe her with pain medication. Patient spouse stated that it was going to take patient 3 months before they can see a pain management physician and hospice was the last resort. Explained to both patient and significant other hospice philosophy and benefits. Currently patient's goals are not comfort oriented. Patient and significant other and not ready to enroll in hospice at this time. Patient is going to be discharged today and she has an appointment with pain management doctor at [facility]. Assisted patient with completing and signing healthcare surrogate form. Patient provided with a copy. Function/Cognitive Trajectory: Patient has a history of T-cell LGL leukemia, history of stage II ovarian cancer in remission treated with resection of large ovarian mass, polycystic ovarian disease, rheumatoid arthritis, osteoporosis, diabetes mellitus, anxiety , depression. Patient was diagnosed with T-cell LGL in 2016. She followed with oncologist Dr. Iban Will and Dr. Felder. Patient has had chronic leukopenia/neutropenia from leukemia. Patient was offered immunosuppressive therapy and she declined it. Patient was under hospice care with the [facility] with primary diagnosis of rheumatoid arthritis approximately 8 months ago. Patient was discharged from hospice care and was told that she would need a letter from oncology stating the progression of a T-cell leukemia in order to be enrolled in hospice again. 06/29/18 patient was in ER for evaluation of high glucose. Patient lives at home with her significant other. She requires assistance with most of his ADLs. Patient ambulates with a rolling walker. Her significant other does not work and is her primary caregiver. Patient is able to verbalize and needs. Past surgical history: Hysterectomy Bone marrow biopsy x2 Resection of large of an mass Intraperitoneal biopsy Colonoscopy Review of Systems Constitutional: Reports body ache(s), Reports fatigue, Reports lack of energy, Reports weakness, Denies anorexia, Denies fever(s), Denies weight loss Eyes: Denies blurry vision, Denies bulging eyes Ears, Nose, Mouth, and Throat: Reports poor balance, Denies abnormal hearing, Denies headache(s), Denies nasal obstruction Cardiovascular: Reports chest pain (Occasionally), Reports shortness of breath with activity, Denies irregular heart rhythm, Denies shortness of breath Respiratory: Reports shortness of breath with activity, Denies chest congestion , Denies cough, Denies shortness of breath Gastrointestinal: Reports abdominal pain, Reports vomiting, Denies incontinent of stools, Denies nausea Genitourinary: Denies urinary incontinence Musculoskeletal: Reports back pain, Reports body aches, Denies numbness, Denies tingling Skin/Breast: Reports unusual bruising Neurologic: Denies abnormal speech, Denies confusion, Denies frequent falls Psychiatric: Reports anxiety, Reports depression, Denies change in appetite, Denies confusion Hematologic/Lymphatic: Reports easy bruising PMFSH - History History Provided By: Patient, Family Member, Medical Record - Medical History Medical History: Medical History (Last Updated 07/21/18 @ 10:50 by Fanny Byrd) Anxiety Depression Diabetes mellitus H/O: hysterectomy History of polycystic ovarian disease Hypertension Leukemia Osteoporosis Rheumatoid arthritis Seizure - Surgical History Surgical History: Surgical History (Last Updated 07/21/18 @ 10:54 by Fanny Byrd) History of biopsy Hx of colonoscopy - Tobacco History Second Hand Smoke Exposure: Yes Tobacco Use In Past 30 Days: No Smoking Status: Former smoker Tobacco Type: Cigarettes - Alcohol History How Often Do You Have a Drink Containing Alcohol: Never - Substance Use History Substance History: Active Abuse - Substance Use Type Marijuana Route Used: Inhalation Reason for Use: Sleep Comment: also helps with appetite - Travel History Recent Travel in the [place] Within the Last 8 Weeks: No Recent Travel Out of the Country Within the Last 8 Weeks: No - Immunization History Tetanus Immunization: Unsure Hx Influenza Vaccine This Season: Yes Medications and Allergies Active Medications: Active Medications Acetaminophen (Tylenol) 650 mg PO Q8H PRN PRN Reason: PAIN 1-10 Last Admin: 07/18/18 03:05 Dose: 650 mg Hydrocodone Bitart/Acetaminophen (Bisbee 5/325) 1 tab PO Q4H PRN PRN Reason: PAIN SCALE 1 TO 10 Last Admin: 07/21/18 03:55 Dose: 1 tab Citalopram Hydrobromide (Celexa) 20 mg PO DAILY [facility] Last Admin: 07/20/18 09:02 Dose: 20 mg Dextrose (D50w Vial) 50 ml IV.PUSH UNSCH PRN PRN Reason: PER HYPOGLYCEMIA PROTOCOL Enoxaparin Sodium (Lovenox Inj) 80 mg SQ Q12H [facility] Last Admin: 07/20/18 01:09 Dose: 80 mg Fentanyl (Duragesic 25 Mcg Patch.72hr) 1 patch T-DERMAL Q3D [facility] Last Admin: 07/18/18 12:42 Dose: 1 patch Glucagon (Glucagon Inj) 1 mg OTHER PRN PRN PRN Reason: for Hypoglycemia Protocol Sodium Chloride (1/2 Normal Saline Inj) 1,000 mls @ 75 mls/hr IV.CONT .[id number] [facility] Last Admin: 07/21/18 07:45 Dose: Not Given Sodium Chloride (Ns Inj) 500 mls @ 30 mls/hr IV.SIG .Q10H [facility] Lactated Ringer's (Lr 1000 Ml Inj) 1,000 mls @ 30 mls/hr IV.SIG .Q24H [facility] Stop: 07/22/18 05:59 Sodium Chloride (Ns Inj) 500 mls @ 30 mls/hr IV.SIG .Q10H [facility] Insulin Aspart (Novolog Insulin Correctional Sugar Inj) 0 unit SQ ACHS [facility]; Protocol Last Admin: 07/20/18 21:15 Dose: Not Given Levetiracetam (Keppra) 500 mg PO TID [facility] Last Admin: 07/20/18 18:10 Dose: 500 mg Nifedipine (Procardia Xl) 30 mg PO DAILY [facility] Last Admin: 07/20/18 09:02 Dose: 30 mg Pantoprazole Sodium (Protonix) 20 mg PO DAILY [facility] Last Admin: 07/20/18 09:02 Dose: 20 mg Patch Removal (Remove Old Patch) 1 each T-DERMAL Q3D [facility] Propranolol HCl (Inderal) 20 mg PO BID [facility] Last Admin: 07/20/18 21:08 Dose: 20 mg Sennosides (Senokot) 17.2 mg PO Q12H PRN PRN Reason: Moderate Constipation Last Admin: 07/19/18 12:27 Dose: 17.2 mg Sodium Chloride (Ns Flush) 2 ml IV.FLUSH PRN PRN PRN Reason: FLUSH AFTER USING IV ACCESS Last Admin: 07/20/18 21:08 Dose: 2 ml Allergies Allergy/AdvReac Type Severity Reaction Status Date / Time ciprofloxacin Allergy Severe Swelling Verified 07/17/18 20:16 penicillin G Allergy Severe RASH Verified 07/17/18 20:16 clindamycin Allergy Intermediate FLU SX Verified 07/17/18 20:16 hydroxychloroquine Allergy Intermediate FLU SX Verified 07/17/18 20:16 gabapentin Allergy Mild Rash Verified 07/17/18 20:16 nitrofurantoin AdvReac Severe N&V Verified 07/17/18 20:16 Home Medications Medication Instructions Recorded Confirmed Type alprazolam [Xanax] 1 mg PO TID 10/17/18 11/04/18 History citalopram 20 mg PO DAILY 06/29/18 07/17/18 History hydrocodone-acetaminophen [Bisbee] 1 tab PO Q4-6H PRN 06/29/18 07/17/18 History levetiracetam [Keppra] 500 mg PO TID 06/29/18 07/17/18 History nifedipine 30 mg PO DAILY 06/29/18 07/17/18 History ondansetron HCl [Zofran] 4 mg PO BID PRN 06/29/18 07/17/18 History pantoprazole [Protonix] 20 mg PO DAILY 06/29/18 07/17/18 History propranolol 20 mg PO BID 06/29/18 07/17/18 History spironolactone 25 mg PO DAILY 06/29/18 07/17/18 History metformin 500 mg PO BID 07/19/18 07/19/18 History Advance Directives Healthcare Surrogate: Yes Health Care Surrogate Name and Number: HCS:Anastasiya Lara [phone] Alt: Ortega Landaverde [phone] Power of Therapist Radiation: Yes Family/friends goals: Patient looking forward to being discharged home today. . Ethical and Legal Issues: None identified at this time . Physical Exam Vital Signs: Vital Signs - 24 hr 07/20/18 12:00 07/20/18 16:00 07/20/18 19:04 Temperature 98.3 F 98.0 F 97.4 F L Pulse Rate 86 94 H 95 H Respiratory Rate 16 16 18 Blood Pressure 133/63 134/68 139/61 Pulse Oximetry 96 98 96 07/20/18 23:00 07/21/18 03:41 Temperature 98.7 F 98.6 F Pulse Rate 84 88 Respiratory Rate 18 18 Blood Pressure 126/59 L 144/68 H Pulse Oximetry 97 99 I&O: Intake & Output 07/19/18 07/20/18 07/21/18 07/22/18 06:59 06:59 06:59 06:59 Intake Total 1400 / 1400 100 / 100 1545 / 1545 Output Total 4 / 4 Balance 1400 / 1400 100 / 100 1541 / 1541 Weight 76.1 kg 76.1 kg Physical Exam: CONSTITUTIONAL/GENERAL: This is an adequately nourished patient, in no apparent distress. TUBES/LINES/DRAINS: SKIN: Ecchymoses on left upper. no wounds seen anteriorly. Skin temperature appropriate. Not diaphoretic. HEAD: Atraumatic. Normocephalic. EYES: Pupils equal and round and reactive. Extraocular motions intact. No scleral icterus. No injection or drainage. Fundi not examined. ENT: Hearing grossly normal. Nose without bleeding or purulent drainage. Moist oral mucosa NECK: Trachea midline. Supple, nontender. CARDIOVASCULAR: Regular rate and rhythm without murmurs, gallops, or rubs. No JVD. Peripheral pulses symmetric. RESPIRATORY/CHEST: Symmetric, unlabored respirations. Clear to auscultation. Breath sounds equal bilaterally. No wheezes, rales, or rhonchi. GASTROINTESTINAL: Abdomen soft, non-tender, distended. No guarding. Bowel sounds present. GENITOURINARY: Without palpable bladder distension. MUSCULOSKELETAL: Extremities without clubbing, cyanosis. Left lower extremity tender to touch with tenderness to left calf. Edema to left lower extremity. LYMPHATICS: Did not assess NEUROLOGICAL: Awake and alert. Motor and sensory grossly within normal limits. Follows commands. Cognitively sharp. Moves all extremities. PSYCHIATRIC: No obvious anxiety/depression. no apparent hallucinations or other psychotic thought process. Diagnostic Tests Laboratory: Laboratory Results - last 72 hr 07/18/18 07/18/18 07/18/18 12:01 12:02 17:12 WBC RBC Hgb Hct MCV MCH MCHC RDW Plt Count MPV Prelim Diff (Auto) Neut % (Auto) Lymph % (Auto) Sandoval % (Auto) Eos % (Auto) Baso % (Auto) Neut # (Auto) Lymph # (Auto) Sandoval # (Auto) Eos # (Auto) Baso # (Auto) WBC Differential Seg Neuts % (Manual) Band Neuts % (Manual) Lymphocytes % (Manual) Monocytes % (Manual) Eosinophils % (Manual) Basophils % (Manual) Abs Neuts (Manual) Differential Comment Platelet Estimate Platelet Morphology Sodium Potassium Chloride Carbon Dioxide Anion Gap BUN Creatinine Estimated GFR POC Glucose 160 H 143 H Random Glucose Calcium Magnesium Iron TIBC % Saturation Ferritin Lactate Dehydrogenase Troponin I C-Reactive Protein MTS Gel Crossmatch See Detail 07/18/18 07/19/18 07/19/18 20:39 06:33 06:35 WBC 2.7 L RBC 4.21 Hgb 9.5 L D Hct 29.7 L MCV 70.6 L MCH 22.6 L MCHC 32.0 RDW 22.9 H Plt Count 480 H MPV 6.9 L Prelim Diff (Auto) Slide review pending Neut % (Auto) 31.4 Lymph % (Auto) 56.2 H Sandoval % (Auto) 9.5 H Eos % (Auto) 2.6 Baso % (Auto) 0.3 Neut # (Auto) 0.9 L Lymph # (Auto) 1.5 Sandoval # (Auto) 0.3 Eos # (Auto) 0.1 Baso # (Auto) 0.0 WBC Differential Manual diff final Seg Neuts % (Manual) 34 Band Neuts % (Manual) 2 Lymphocytes % (Manual) 51 H Monocytes % (Manual) 10 H Eosinophils % (Manual) 2 Basophils % (Manual) 1 Abs Neuts (Manual) 1.0 L Differential Comment . Platelet Estimate High H Platelet Morphology Normal Sodium 141 Potassium 3.3 L Chloride 103 Carbon Dioxide 30.1 Anion Gap 8 BUN 8 Creatinine 0.59 Estimated GFR Greater than 89 POC Glucose 209 H Random Glucose 111 H Calcium 8.0 L Magnesium 1.2 L Iron 42 L TIBC 262 % Saturation 16.0 L Ferritin 48 Lactate Dehydrogenase 153 Troponin I C-Reactive Protein 11.00 H MTS Gel Crossmatch 07/19/18 07/19/18 07/19/18 08:25 13:24 17:43 WBC RBC Hgb Hct MCV MCH MCHC RDW Plt Count MPV Prelim Diff (Auto) Neut % (Auto) Lymph % (Auto) Sandoval % (Auto) Eos % (Auto) Baso % (Auto) Neut # (Auto) Lymph # (Auto) Sandoval # (Auto) Eos # (Auto) Baso # (Auto) WBC Differential Seg Neuts % (Manual) Band Neuts % (Manual) Lymphocytes % (Manual) Monocytes % (Manual) Eosinophils % (Manual) Basophils % (Manual) Abs Neuts (Manual) Differential Comment Platelet Estimate Platelet Morphology Sodium Potassium Chloride Carbon Dioxide Anion Gap BUN Creatinine Estimated GFR POC Glucose 125 H 418 H 102 Random Glucose Calcium Magnesium Iron TIBC % Saturation Ferritin Lactate Dehydrogenase Troponin I C-Reactive Protein MTS Gel Crossmatch 07/19/18 07/20/18 07/20/18 22:20 05:00 05:00 WBC 2.7 L RBC 4.44 Hgb 10.1 L Hct 31.4 L MCV 70.7 L MCH 22.7 L MCHC 32.1 RDW 23.3 H Plt Count 499 H MPV 6.8 L Prelim Diff (Auto) Slide review pending Neut % (Auto) 31.3 Lymph % (Auto) 56.4 H Sandoval % (Auto) 10.1 H Eos % (Auto) 1.8 Baso % (Auto) 0.4 Neut # (Auto) 0.8 L Lymph # (Auto) 1.5 Sandoval # (Auto) 0.3 Eos # (Auto) 0.0 Baso # (Auto) 0.0 WBC Differential Manual diff final Seg Neuts % (Manual) 32 Band Neuts % (Manual) 1 Lymphocytes % (Manual) 52 H Monocytes % (Manual) 13 H Eosinophils % (Manual) Basophils % (Manual) 2 Abs Neuts (Manual) 0.9 L Differential Comment . Platelet Estimate High H Platelet Morphology Normal Sodium 140 Potassium 4.0 Chloride 104 Carbon Dioxide 29.0 Anion Gap 7 BUN 9 Creatinine 0.55 Estimated GFR Greater than 89 POC Glucose 137 H Random Glucose 117 H Calcium 8.1 L Magnesium 1.5 Iron TIBC % Saturation Ferritin Lactate Dehydrogenase Troponin I C-Reactive Protein MTS Gel Crossmatch 07/20/18 07/20/18 07/20/18 06:00 08:22 11:53 WBC RBC Hgb Hct MCV MCH MCHC RDW Plt Count MPV Prelim Diff (Auto) Neut % (Auto) Lymph % (Auto) Sandoval % (Auto) Eos % (Auto) Baso % (Auto) Neut # (Auto) Lymph # (Auto) Sandoval # (Auto) Eos # (Auto) Baso # (Auto) WBC Differential Seg Neuts % (Manual) Band Neuts % (Manual) Lymphocytes % (Manual) Monocytes % (Manual) Eosinophils % (Manual) Basophils % (Manual) Abs Neuts (Manual) Differential Comment Platelet Estimate Platelet Morphology Sodium Potassium Chloride Carbon Dioxide Anion Gap BUN Creatinine Estimated GFR POC Glucose 146 H 135 H Random Glucose Calcium Magnesium Iron TIBC % Saturation Ferritin Lactate Dehydrogenase Troponin I Less than 0.02 L C-Reactive Protein MTS Gel Crossmatch 07/20/18 07/20/18 07/21/18 16:44 21:06 07:52 WBC RBC Hgb Hct MCV MCH MCHC RDW Plt Count MPV Prelim Diff (Auto) Neut % (Auto) Lymph % (Auto) Sandoval % (Auto) Eos % (Auto) Baso % (Auto) Neut # (Auto) Lymph # (Auto) Sandoval # (Auto) Eos # (Auto) Baso # (Auto) WBC Differential Seg Neuts % (Manual) Band Neuts % (Manual) Lymphocytes % (Manual) Monocytes % (Manual) Eosinophils % (Manual) Basophils % (Manual) Abs Neuts (Manual) Differential Comment Platelet Estimate Platelet Morphology Sodium Potassium Chloride Carbon Dioxide Anion Gap BUN Creatinine Estimated GFR POC Glucose 131 H 120 H 128 H Random Glucose Calcium Magnesium Iron TIBC % Saturation Ferritin Lactate Dehydrogenase Troponin I C-Reactive Protein MTS Gel Crossmatch Result Diagrams: 07/20/18 05:00 07/20/18 05:00 Microbiology: Microbiology 07/17/18 20:00 Aerobic Blood Culture - Preliminary Blood - Peripheral No growth in 3 days Anaerobic Blood Culture - Preliminary No growth in 3 days 07/17/18 19:55 Aerobic Blood Culture - Preliminary Blood - Peripheral No growth in 3 days Anaerobic Blood Culture - Preliminary No growth in 3 days Imaging: Chest X-Ray 07/17/18 19:40 CONCLUSION: No evidence of acute cardiopulmonary disease. Head CT 07/17/18 19:40 CONCLUSION: Negative noncontrast head CT. . Chest CTA 07/17/18 20:50 CONCLUSION: 1. No pulmonary embolus. 2. Mild bilateral atelectasis. 3. No significant change subcentimeter nodule of the left lower lobe, felt to be benign. 4. Coronary artery calcification. Abdomen/Pelvis CT 07/17/18 20:51 CONCLUSION: 1. No obstruction or acute inflammatory changes are seen in the abdomen or pelvis. 2. There is apparent nonobstructing DVT involving the visualized left femoral artery. Bilateral lower extremity venous duplex Doppler recommended. 3. An apparent cyst of the left vulva/vagina only partly seen. 4. No evidence of metastatic disease or recurrent tumor. 5. Enlarged and fatty infiltrated liver. 6. Small hiatal hernia. Venous Doppler Study 07/17/18 22:40 CONCLUSION: Fairly extensive incompletely occlusive thrombus in the left leg Patient/Family Conference Family Conference Location: Bedside Issues Discussed: * Palliative care role, purpose, approach * Additional medical, psychosocial, and spiritual history * Patients general health, functional status, and cognitive changes in the months leading up to the current hospitalization * Patient/family understanding of the current medical problems * Patient/family understanding of prognosis * Patients goals of care as best understood from advance directives and/or conversations and/or values * Current medical treatment options and benefits/burdens of those options * Likely scenarios comparing ongoing aggressive care with a transition to comfort measures only * Questions answered to the best of my ability * Introduced hospice philosophy and benefits * Palliative care contact information provided Assessment and Plan - Symptom Scale (1) Pain 0-10 Scale: 7 Comment: Patient has rheumatoid arthritis and chronic pain to her back. Patient is a left lower extremity DVT and is complaining of pain to left lower extremity. Pertinent Non-Medical Issues: Psychosocial: Patient is originally from [place], [place]. She moved to [place] in 1991. Patient has been once and is . Has 1 child, a son Anastasiya Lara. Patient currently resides with his significant other over 5 years Marco Langford. 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 Spiritual: Patient is Jew Legal: Patient states that she has completed POA papers though not notarized- No made available. Completed and signed HCS form today. Ethical issues impacting care: None identified at this time. . Important Contacts: Son-Ortega Landaverde [phone] Significant other-Vitaly Langford-[phone] . 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 Patient presented to the emergency room on 07/17/18 for evaluation of worsening weakness , shortness of breath, generalized pain, dizziness, vomiting and diarrhea. Given ongoing comorbidities, patient remains at high risk for further complications, deterioration and decline. Code Status: Alternative Code Plan: PLAN: Legal decision maker: Patient is currently able to participate in making his own medical decisions. In the event that she is incapacitated she designated his significant other Anastasiya Lara as her healthcare surrogate and her son Saima Vivas as her alternate healthcare surrogate. Goals: Aggressive. Patient is going to be discharged today and plans on following with pain management physician at [facility]. Introduced hospice philosophy and benefits and patient with the support of a significant other is not ready for hospice. CODE STATUS was addressed and patient elected alternate code. She does not want CPR but would like shock, ACLS drugs and intubation. CODE STATUS: Alternate Code- No CPR only. SYMPTOMS: * Pain: Patient has rheumatoid arthritis and chronic pain to her back. Patient is a left lower extremity DVT and is complaining of pain to left lower extremity. Pain is currently managed with hydrocodone/acetaminophen 5/325 every 4 hours as needed, fentanyl 25 mcg patch every 72 hours. * Anxiety: Patient has history of anxiety and depression. Patient takes Xanax at home. Patient is being discharged home today and will resume home medications. Palliative care will continue to follow the patient during hospital course as condition evolves, to assist patient/decision-maker with understanding of their medical conditions, weighing benefits/burdens of treatment options, for clarification of goals of treatment. Additionally will assist with any symptoms of palliative concern Appreciation Thank you for the opportunity to participate in the care of Carolyn Vasquez. Attestation Attestation: To help prompt me to consider important information that might be impacting today's encounter and assessment, information from prior notes written by myself or my colleagues may have been "brought forward" into today's note. My signature on this note, however, is an attestation that I personally performed the exam, history, and/or decision-making noted today, and, unless otherwise indicated, the interactions with patient, family, and staff as well as the review of records all occurred today. I also attest that the listed assessment and stated plan reflect my best clinical judgment today based on the combination of historical information, prior notes, and today's exam/ interactions. When time spent is documented, it refers only to time spent today by the signer, or if indicated, combined time spent today by collaborating physician/nurse practitioner.
--- NOTE | 2018-07-21 10:57 | P.DS ---
DS: Providers Date of admission: 07/17/18 22:49 Primary care physician: Maksim Vazquez Consults: 07/17/18 23:28 Consult to Oncology Routine Consulting Provider: Brissa Zelaya Reason for Consultation: anemia ,leukopenia hx t cell leukemia Notified:: Service Spoke with:: WILLAM Date Notified:: 07/18/18 Time Notified:: 00:51 Ordering Provider: CHRISTA 07/19/18 09:00 Consult to Gastroenterology Routine Consulting Provider: Vonda Estrada Reason for Consultation: anemia Notified:: Office Spoke with:: HENNY Date Notified:: 07/19/18 Time Notified:: 09:14 Ordering Provider: LETICIA 07/19/18 15:21 HUB Only Consult Order Routine Consulting Provider: [employer] 07/20/18 18:40 Consult to Palliative Care Routine Consulting Provider: Smith Dallas Reason for Consultation: Symptom management of chronic condition. Notified:: Service Spoke with:: Terri Date Notified:: 07/20/18 Time Notified:: 18:42 Ordering Provider: LIBRA 07/21/18 08:29 HUB Only Consult Order Routine Consulting Provider: [employer] DS: Summary Generalized weakness Nausea/vomiting/diarrhea Anemia - Pt is a 57 y/o WF with stage II ovarian cancer, T-granular lymphocyte leukemia (CLL), chronic neutropenia, RA, diabetes, HTN and chronic pain. - She presented to the ED at [facility] [place] on 07/17/18 for evaluation of generalized weakness, generalized pain, dizziness, vomiting, diarrhea. Patient states her symptoms have been ongoing for 12 days and have been worsening. She reported some shortness of breath and pain that says is everywhere. She reported 2 episodes of vomiting and 2 episodes of diarrhea today. - In the ED she was found to have hemoglobin 7.6, WBC count 2.1 - Pt s/p transfusion with 2 units PRBCs with Lasix in between on 07/18/18 with improvement in Hgb to 9.5/Hct 29.7 07/20/18. - repeat H?H 07/20/18 Hgb 10.1/Hct 31.4 - Monitor labs closely - Case was discussed with Hematology, and they feel that the pts microcytic anemia is likely related to iron deficiency and/or occult blood loss. - Iron studies were checked this morning but this was post-transfusion. Serum Fe 42, TIBC 262, % Sat 16, Ferritin 48. - Stool for Hemoccult is ordered - GI consultation, initially planned for EGD/colonoscopy today 07/20/2018. Patient underwent EGD but unable to have colonoscopy due to inadequate prep and solid stool present in colon. -Dr. Richardson discussed with Dr. Estrada plan for colonoscopy tomorrow 07/21/2018 - Coloscopy 07/21/18 : IMPRESSIONS: 1. Polyp splenic flexure-7 mm cold biopsy with complete removal 2. Retroflexed views revealed internal hemorrhoids 3. Retroflexed views revealed small internal hemorrhoids 4. Revealed hemorrhoids RECOMMENDATIONS: 1. Benefiber 2 tsp daily 2. Probiotics from any [employer] or health food store 3. Yearly rectal exams RECALL: Return 5 years Colonoscopy - PT evaluation, Patient ambulated 80 feet. PT recommend DC home with no PT Left leg DVT - In the ED pt was found to have a non occlusive DVT in the left leg. - Chest CTA (07/17/18) 1. No pulmonary embolus. 2. Mild bilateral atelectasis. 3. No significant change subcentimeter nodule of the left lower lobe, felt to be benign. 4. Coronary artery calcification. - Pt received transfusion with PRBCs on 07/18/18 - Pt started Lovenox 80mg SQ BID on 07/18/18 - Oncology is following. Per oncology anticipate switching to newer oral anticoagulant once patient's hemoglobin stabilized - DC home on Xarelto Rheumatoid Arthritis - Pain control PRN. Pt reports that she was on a Fentanyl patch 25mcg Q3D at home and Worthing PRN. - Pt was resumed Fentanyl patch and Worthing 5/325 Q4H PRN on 07/18 but she does not feel that this is helping. Concern for narcotic seeking behavior - CRP is 11.0 T-granular lymphocyte leukemia (CLL) Leukopenia - Pt follows with Dr. Leandro Will, initially diagnosed in 2016 - Pt was initially offered Cytoxan, which she declined and was started on Cyclosporine, but has been noncompliant with treatments and followups according to outpt records. - The last note from her Oncologist in 02/2018 reports that the pt decided to go on Hospice at that time but the pt report that her leukemia became stable andnshe was discharged from hospice. - Oncology, Dr. Zelaya, has been consulted and is following HTN - Home meds continued per med rec - Pt was being seen by [facility] for the last 5-6 months. Time Spent with Patient Total time spent providing and/or coordinating discharge services: Quality: VTE Deep Vein Thrombosis/Pulmonary Embolism Present on Admission: No Exam Narrative Exam Narrative: General: NAD, AAOx3 Chest: CTA Cardiac: Regular Abd: +BS, soft ND/NT Ext: nonpitting LLE edema improving DS: Data Pending studies at discharge: Pending at discharge 07/20/18 17:00 Surgical [PTH] Routine 07/21/18 Surgical [PTH] Routine Labs on day of discharge: Labs from last 24 hours 07/21/18 07/20/18 07/20/18 07:52 21:06 16:44 POC Glucose 128 H 120 H 131 H 07/20/18 11:53 POC Glucose 135 H Preliminary micro results at discharge 07/17/18 20:00 Aerobic Blood Culture - Preliminary Blood - Peripheral No growth in 3 days Anaerobic Blood Culture - Preliminary No growth in 3 days 07/17/18 19:55 Aerobic Blood Culture - Preliminary Blood - Peripheral No growth in 3 days Anaerobic Blood Culture - Preliminary No growth in 3 days Impressions Chest X-Ray 07/17/18 19:40 CONCLUSION: No evidence of acute cardiopulmonary disease. Head CT 07/17/18 19:40 CONCLUSION: Negative noncontrast head CT. . Chest CTA 07/17/18 20:50 CONCLUSION: 1. No pulmonary embolus. 2. Mild bilateral atelectasis. 3. No significant change subcentimeter nodule of the left lower lobe, felt to be benign. 4. Coronary artery calcification. Abdomen/Pelvis CT 07/17/18 20:51 CONCLUSION: 1. No obstruction or acute inflammatory changes are seen in the abdomen or pelvis. 2. There is apparent nonobstructing DVT involving the visualized left femoral artery. Bilateral lower extremity venous duplex Doppler recommended. 3. An apparent cyst of the left vulva/vagina only partly seen. 4. No evidence of metastatic disease or recurrent tumor. 5. Enlarged and fatty infiltrated liver. 6. Small hiatal hernia. Venous Doppler Study 07/17/18 22:40 CONCLUSION: Fairly extensive incompletely occlusive thrombus in the left leg Discharge Plan Discharge Disposition Patient Disposition: 01 Discharge Home Discharge Condition Condition: Stable Discharge Order Discharge Orders: Discharge Order (Routine); Ordered 07/21/18 Ordered By: Beth Ibanez Discharge Details Anticipated Discharge Date: 07/21/18 Physicians Team ED Provider: Scarlett [facility] ED Midlevel Provider: Tova Martinez Primary Care Provider: Maksim Vazquez Attending Provider: Thien Richardson Other Providers: Brissa Zelaya ; Vonda Estrada ; [facility],Insurance ; Smith [place] Rxs /Orders / Referrals /Forms Prescriptions: New rivaroxaban [Xarelto] 15 mg tablet 15 mg PO BID 21 Days Qty: 42 RF: 0 rivaroxaban [Xarelto] 20 mg tablet 20 mg PO DAILY 30 Days Qty: 30 RF: 0 Continue alprazolam [Xanax] 1 mg Tablet 1 mg PO TID RF: 0 levetiracetam [Keppra] 500 mg Tablet 500 mg PO TID RF: 0 ondansetron HCl [Zofran] 4 mg Tablet 4 mg PO BID PRN (Reason: Nausea) RF: 0 nifedipine 30 mg Tablet Extended Release 30 mg PO DAILY RF: 0 hydrocodone-acetaminophen [Worthing] 10-325 mg Tablet 1 tab PO Q4-6H PRN (Reason: Pain) RF: 0 spironolactone 25 mg Tablet 25 mg PO DAILY RF: 0 pantoprazole [Protonix] 20 mg Tablet,Delayed Release (Dr/Ec) 20 mg PO DAILY RF: 0 citalopram 20 mg Tablet 20 mg PO DAILY RF: 0 propranolol 20 mg Tablet 20 mg PO BID RF: 0 metformin 500 mg Tablet 500 mg PO BID RF: 0 Referrals: Vonda Estrada MD [Physician] - See Instructions (Follow up in 2 weeks) Maksim Vazquez D.O. [Primary Care Provider] - See Instructions (Follow up in 1 week) Brissa Zelaya MD [Physician] - See Instructions (Follow up in 2 weeks) Status ED Status: Left Department
[2018-07-21 11:17] VITALS: TEMP 97.8; O2SAT 95
[2018-07-21] MEDS: Insulin NovoLOG Aspart Correctional Sugar Inj SQ SCH ×2 (12:03→15:47)
[2018-07-21] MEDS: Pantoprazole Sodium 20 MG DR Tablet PO SCH (12:05)
[2018-07-21] MEDS: levETIRAcetam 500 MG Tablet PO SCH ×2 (12:06→12:11)
[2018-07-21] MEDS: Citalopram 20 MG Tablet PO SCH (12:06)
[2018-07-21 13:47] VITALS: BP 164/76; PULSE 99; RESP 17
[2018-07-21] MEDS: Enoxaparin Inj 80 MG/0.8 ML Syringe SQ SCH (16:02)
== END 2018-07-21 16:45 | disposition home or self-care (01) ==
LOC: NEPC 19:16 → NEDA 22:49 → N06 07-18 00:58 → UNDODISIN 07-21 13:46
PROVIDERS: ADMIT Hospitalist; ATTEND Hospitalist
PROC: PANENDO (2018-07-20 13:03)
PROC: COLONOS (2018-07-21 09:39)